=== PATIENT | female | born 1935 | race Caucasian/White ===

== ENCOUNTER 2023-07-01 15:20 | Outpatient (CLI) | payer MEDICARE, SELFPAY ==
--- OUTSIDE RECORDS SUMMARY | 2023-12-22 07:44 | XMS_ITS | Clinical Summary ---
Author Name Unknown Organization [facility] Moos[facility] m Address [address] [place] [address] Care Team Providers Care Chemical Preparer Name Role Phone Tawny Webb MD Primary Care Provider Allergies Active Allergy Reactions Criticality Noted Date Comments Iodine Low 10/13/2022 Medications Medication Sig Dispensed Refills Start Date End Date Status Rexulti 1 mg tabletIndications :Moderate Alzheimer's dementia with mood disturbance, unspecified timing of dementia onset (HCC) Take 0.5 tablets (0.5 mg) by mouth 1 (one) time each day. 0 Active mometasone (Elocon) 0.1 % lotion Apply 1 application topically 1 (one) time each day. 0 01/17/2023 Active memantine (Namenda) 10 mg tabletIndications :Dementia, unspecified dementia severity, unspecified dementia type, unspecified whether behavioral, psychotic, or mood disturbance or anxiety (HCC) Take 1 tablet (10 mg) by mouth in the morning. Dosage increase to 10 mg daily 90 tablet 1 03/23/2023 4 Discontinue d(Therapy completed) OLANZapine (ZyPREXA) 5 mg tablet Take 1 tablet (5 mg) by mouth in the morning and 1 tablet (5 mg) in the evening. 180 tablet 3 04/02/2023 4 Discontinue d(Therapy completed) Active Problems Problem Noted Date Diagnosed Date Advance care planning 12/16/2023 Last Assessment & Plan: Discussed plan with daughter who is also electric operator. Not pursuing aggressive treatments. Patient is DNR/DNI. Advanced directive is not available at this time, however daughter states she will supply these documents. Impulsive 03/23/2023 Moderate Alzheimer's dementia with mood disturba nce 10/13/2022 Last Assessment & Plan: On Rexulti, continue for now. Patient unable to drive. Utilizes walker. Handicap permit form. Ordered referral to psychiatry to establish. Encounters Date Type Department Care Team Description 12/16/2023 10:10 AM EST Office Visit [facility] [id number] [facility], 2nd Floor [place], [place] [id number] Richard Jessica DO Moderate Alzheimer's dementia with mood disturbance, unspecified timing of dementia onset (HCC) (Primary Dx); Advance care planning 12/14/2023 Travel 12/07/2023 Travel 11/07/2023 Travel 11/01/2023 Travel from Last 3 Months Immunizations Name Administration Dates Next Due Influenza (Fluzone), High-do se Seasonal, Quadrivalent, Preservative Free 08/22/2021 Influenza, High Dose Seasona l, Preservative Free 09/01/2022 Moderna SARS-CoV-2 Vaccination 09/19/2021,2020,01/03/2021 Pneumococcal Polysaccharide PPSV23 08/31/2011, Zoster, live 05/13/2014 Family History Medical History Relation Name Comments Heart failure Father Pancreatic cancer Mother Relation Name Status Comments Father (Age 72) COD: Heart Issues Mother (Age 80) COD: Pancr eatic cancer Social History Tobacco Use Types Packs/Day Years Used Date Smoking Tobacco: Former Cigarettes 1 10 Q uit: 1980 Smokeless Tobacco: Never Tobacco Cessation:Counseling Given: Not Answered Alcohol Use Standard Drinks/Week Comments Not Currently 0 (1 standard drink = 0.6 oz pur e alcohol) AUDIT-C Answer Date Recorded Q1: How often do you have a drink containing alcohol? Never 10/14/2022 Q2: How many drinks containi ng alcohol do you have on a typical day when you are drinking? Patient does not drink Q3: How often do you have si x or more drinks on one occasion? Never 10/14/2022 PHQ-2 Answer Date Recorded Patient Health Questionnaire-2 Score 0 12/16/2023 Exercise Vital Sign Answer Date Recorde d On average, how many days pe r week do you engage in moderate to strenuous exercise (like a brisk walk)? 7 days 02/03/2023 On average, how many minutes do you engage in exercise at this level? 20 min 02/03/2023 Sex and Gender Information Value Date Recorded Sex Assigned at Not on file Gender Identity Not on file Sexual Orientation Not on file Job Start Date Occupation Industry Not on file Not on file Not on file Last Filed Vital Signs Vital Sign Reading Time Taken Comments Blood Pressure 122/78 12/16/2023 10:18 AM EST Pulse 74 12/16/2023 10:18 AM EST Temperature 36.3 ??C (97.3 ??F) 03/23/2023 1:51 PM ED T Respiratory Rate 18 02/03/2023 12:24 PM EDT Oxygen Saturation 99% 12/16/2023 10:18 AM EST Inhaled Oxygen Concentration - - Weight 59 kg (130 lb) 03/23/2023 1:51 PM EDT Height 165.1 cm (5' 5) 02/03/2023 12:24 PM EDT Body Mass Index 21.63 02/03/2023 12:24 PM EDT Plan of Treatment Upcoming Encounters Date Type Department Care Team (Late st Contact Info) Description 01/13/2024 4:00 PM EST Office Visit [facility] [address], [address] [place] [address] Tawny Webb MD [address] [place] [address] [address] [place] [address] Health Maintenance Due Date Last Done Comments Medicare Annual Wellness (AWV) 1935 DTaP/Tdap/Td Vaccines (1 - Tdap) 1955 Zoster Vaccines (2 of 3) 07/08/2014 05/13/2014 COVID-19 Vaccine (6 - season) 2023 08/31/2022, 04/07/2022, 09/19/2021, Additional history exists Pneumococcal Vaccine: 65+ Years Completed 11/01/2017, 08/31/2011, 05/13/2010 Influenza Vaccine Completed 08/18/2023, , 08/31/2022, Additional history exists Bone Density Scan Discontinued HIB Vaccines Aged Out No longer eligi ble based on patient's age to complete this topic HPV Vaccines Aged Out No longer eligi ble based on patient's age to complete this topic Hepatitis A Vaccines Aged Out No long er eligible based on patient's age to complete this topic Hepatitis B Vaccines Aged Out No long er eligible based on patient's age to complete this topic IPV Vaccines Aged Out No longer eligi ble based on patient's age to complete this topic Meningococcal Vaccine Aged Out No lisette omer eligible based on patient's age to complete this topic Rotavirus Vaccines Aged Out No longer eligible based on patient's age to complete this topic Advance Directives Latest Code Status on File Code Status Date Activated Date Inactivated Comments DNR 12/16/2023 10:35 AM Code Status History Code Status Date Activated Date Inactivated Comments Full Code 10/13/2022 4:43 PM 12/16/2023 10:35 AM Care Teams Chemical Preparer Relationship Specialty Start Date End Date Tawny Webb MD [address] [place], [place] [id number] PCP - General Family Medicine 10/20/23
--- OUTSIDE RECORDS SUMMARY | 2023-12-22 07:45 | XMS_ITS | Encounter Summary ---
Author Name Unknown Organization [facility] Address [address] [place] [address] Care Team Providers Care Implementation Specialist Name Role Phone Pcp, None Primary Care Provider Unavailabl e Encounter Details Date Type Department Care Team (Latest Contact Info) Description 01/19/2023 Travel Social History Tobacco Use Types Packs/Day Years Used Date Smoking Tobacco: Former Cigarettes Smokeless Tobacco: Never Alcohol Use Standard Drinks/Week Comments Not Currently [...] Answer Date Recorded Patient Health Questionnaire-2 Score 2 01/19/2023 Sex and Gender Information Value Date Recorded Sex Assigned at Not on file Gender Identity Not on file Sexual Orientation Not on file Job Start Date Occupation Industry Not on file Not on file Not on file COVID-19 Exposure Response Date Recorded In the last 10 days, have lucas u been in contact with someone who was confirmed or suspected to have Coronavirus/COVID-19? No / Unsure 01/19/2023 3:39 PM EST documented as of this encounter Functional Status Functional Status Response Date of Assess ment Are you deaf or do you have serious difficulty h earing? No 10/19/2022 Are you blind or do you have serious difficulty seeing, even when wearing glasses? No 10/19/2022 Do you have serious difficul ty walking or climbing stairs? No 10/19/2022 Do you have serious difficulty dressing or bathi ng? No 10/19/2022 Because of a physical, menta l, or emotional condition, do you have serious difficulty doing errands alone such as visiting the doctor? Yes 10/19/2022 Cognitive Status Response Date of Assessm ent Because of a physical, menta l, or emotional condition, do you have serious difficulty concentrating, remembering, or making decisions? (5 years old or older) Yes 10/19/2022 documented as of this encounter Plan of Treatment Upcoming Encounters Date Type Department Care Team (Late st Contact Info) Description 01/13/2024 4:00 PM EST Office Visit [facility] [address], [address] [place] [id number] Tawny Webb MD [address] [place] [address] [address] [place], [place] [id number] documented as of this encounter Visit Diagnoses Not on filedocumented in this encounter Additional Health Concerns Assessment Noted Time PHQ-9 Depression Total Score: 2 01/19/20 23 3:50 PM EST documented as of this encounter Care Teams Implementation Specialist Relationship Specialty Start Date End Date Pcp, Carmelina [address] [place] [address] PCP - General Family Medicine 10/20/22 02/02/23 documented as of this encounter
--- OUTSIDE RECORDS SUMMARY | 2023-12-22 07:45 | XMS_ITS | Encounter Summary ---
Author Name Unknown Organization [facility] Address [address] [place] [address] Care Team Providers Care Cartoon Designer Name Role Phone Tawny Webb MD Primary Care Provider [phone]- [phone] Encounter Details Date Type Department Care Team (Latest Contact Info) Description 12/14/2023 Travel Social History Tobacco Use Types Packs/Day Years Used Date Smoking Tobacco: Former Cigarettes 1 10 Q uit: 1979 Smokeless Tobacco: Never Alcohol Use Standard Drinks/Week [...] Answer Date Recorded Patient Health Questionnaire-2 Score 1 03/23/2023 Exercise Vital Sign Answer Date Recorde d [...] file Not on file Not on file documented as of this encounter Functional Status [...] 01/13/2024 4:00 PM EST Office Visit [facility] [address], [address] [place] [address] Tawny Webb MD [facility] [address] [place] [address] documented as of this encounter Visit Diagnoses Not on filedocumented in this encounter Additional Health Concerns Assessment Noted Time PHQ-9 Depression Total Score: 1 03/23/20 23 1:54 PM EDT documented as of this encounter Care Teams Cartoon Designer Relationship Specialty Start Date End Date [facility] [address] [place] [address] PCP - General Family Medicine 10/20/23 documented as of this encounter
--- OUTSIDE RECORDS SUMMARY | 2023-12-22 07:45 | XMS_ITS | Referral Summary ---
Author Name Unknown Organization [facility] Address [address] [place] [address] Care Team Providers Care Assistant Attorney General Name Role Phone Elsewhere, Pcp Primary Care Provider Unavailabl e Source Comments Patient records contain information from all sites at [facility]. For routine questions regarding patient records, call [phone] during business hours, M-F 8:00 AM - 5:00 PM Central Time. Record requests for emergency care only can be directed to [phone] at any time.[facility] Allergies Active Allergy Reactions Criticality Noted Date Comments Donepezil Other (see comments) Medium 07/02/2023 agitation Iodine Hives (Reselect Reaction) High 12/04/2021 Reacted to mercurium as a child, has tolerated iodine Escitalopram Oxalate Other (see comments) 07/07 Unresponsive episodes, stopped eating, weight loss Memantine Other (see comments) Medium 07/02/2023 agitation Medications Medication Sig Dispensed Refills Start Date End Date Status aspirin [address] tablet Take 81 mg by mouth daily. 0 Active multivitamin (MULTIPLE VITAMINS DAILY ORAL) Take 1 tablet by mouth daily as needed (dietary supplement). 0 Active betamethasone dipropionate (DIPROLENE) 0.05 % lotion Apply 1 Application topically daily as needed (apply to left ear). 0 Active calcium citrate-vitamin D3 315 mg-6.25 mcg (250 Unit) per tablet Take 1 tablet by mouth daily as needed (dietary supplement). 0 Active magnesium oxide 500 mg capsule Take 500 mg by mouth at bedtime as needed (supplement/sleep) . 0 Active potassium chloride (KLOR-CON) 20 mEq packetIndications:Hy pokalemia Take 10 mEq by mouth daily with breakfast. 45 packet 3 05/26/2023 Active thiamine (VITAMIN B1) 100 mg tablet Take 1 tablet (100 mg total) by mouth daily. 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 30 tablet 1 07/30/2023 Active Rexulti 0.5 mg tablet TAKE 1 TABLET(0.5 MG) BY MOUTH DAILY 30 tablet 0 09/30/2023 Active Active Problems Patient Care Coordination No te Formatting of this note migh t be different from the original. 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 Hematuria Chronic 05/29/2023 Cyst Renal 05/29/2023 Overview: 10/19/2022 CT stone protocol 3.4 cm Hypokalemia 05/26/2023 Personal History Of Malignant Neoplasm Of Cervix Uteri 05/26/2023 Depression 05/17/2023 Temper Control Difficulty 05/17/2023 Alzheimer's Disease 04/21/2023 Hydrocephalus Normal Pressure 04/21/2023 Transient Ischemic Attack 04/21/2023 Unsteadiness Gait Disorder Non Orthopedic 202204/13/2023 Hyperlipidemia 04/13/2023 04/13/2023 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 04/13/2023 04/13/2023 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 No 04/15/2023 Within the last year, have y ou been humiliated or emotionally abused in other ways by your partner or ex-partner? No Within the last year, have y ou been kicked, hit, slapped, or otherwise physically hurt by your partner or ex-partner? No 04/15/2023 Within the last year, have y ou been raped or forced to have any kind of sexual activity by your partner or ex-partner? No 04/15/2023 Social Connection and Isolat ion Panel [NHANES] Answer Date Recorded In a typical week, how many times do you talk on the phone with family, friends, or neighbors? Twice a week 04/15/2023 How often do you get togethe r with friends or relatives? More than three times a week 04/15/2023 How often do you attend chur or mosque services? Never 04/15/2023 Do you belong to any clubs o r organizations such as pentecostal groups, unions, fraternal or athletic groups, or school groups? No 04/15/2023 How often do you attend meet ings of the clubs or organizations you belong to? Never 04/15/2023 Are you , , di vorced, , never , or living with a partner? 04/15/2023 AUDIT-C Answer Date Recorded Q1: How often do you have a drink containing alc ohol? Never 04/15/2023 Average Number of Drinks Not on file 023 Frequency of Binge Drinking Not on file 03/23 Overall Financial Resource Strain (CARDIA) Answe r Date Recorded How hard is it for you to pa y for the very basics like food, housing, medical care, and heating? Not hard at all 04/15/2023 PHQ-2 Answer Date Recorded PHQ-2 Score 5 08/05/2023 [facility] - Occupational Stress Questionnaire Answer Date Recorded Do you feel stress - tense, restless, nervous, or anxious, or unable to sleep at night because your mind is troubled all the time - these days? To some extent 04/15/2023 Exercise Vital Sign Answer Date Recorde d On average, how many days pe r week do you engage in moderate to strenuous exercise (like a brisk walk)? 0 days 04/15/2023 On average, how many minutes do you engage in exercise at this level? 10 min 04/15/2023 Hunger Vital Sign Answer Date Recorded Within the past 12 months, y ou worried that your food would run out before you got the money to buy more. Never true 04/15/20 Within the past 12 months, t he food you bought just didn't last and you didn't have money to get more. Never true 04/15/2023 PRAPARE - Transportation Answer Date Re corded In the past 12 months, has l ack of transportation kept you from medical appointments or from getting medications? No 03/23 In the past 12 months, has l ack of transportation kept you from meetings, work, or from getting things needed for daily living? No 04/15/2023 Housing Stability Vital Sign Answer Marcin e Recorded In the last 12 months, was t here a time when you were not able to pay the mortgage or rent on time? No 04/15/2023 In the last 12 months, how many places have you lived? 2 04/15/2023 In the last 12 months, was t here a time when you did not have a steady place to sleep or slept in a alf (including now)? No 04/15/2023 Depression Answer Date Recor ded PHQ-9 Total Score (max 27) 18 08/05 Nutrition Answer Date Recorded Nutrition: EVOO Fat Source Yes 04/15 On average, how many serving s of fruits and vegetables do you eat per day (serving size is equal to 1 cup or approximately the size of a tennis ball)? 2-3 04/15/2023 Dental Answer Date Recorded Dental: Regular Dentist Yes 04/15/20 Employment Answer Date Recorded Employment status Retired 04/15/2023 Education Answer Date Recorded What is the highest level of school you have completed or the highest degree you have received? 12th grade 04/15/2023 Sex and Gender Information Value Date Recorded Sex Assigned at Female 04/15/2023 7:57 AM CDT Gender Identity Female 04/15/2023 7:57 AM CDT Sexual Orientation Straight 04/15/2023 7: 57 AM CDT Last Filed Vital Signs Vital Sign Reading Time Taken Comments Blood Pressure 109/66 08/04/2023 12:53 PM CDT Pulse 49 08/04/2023 12:53 PM CDT Temperature 36.7 ??C (98.1 ??F) 07/07/2023 10:09 AM C DT Respiratory Rate 20 07/07/2023 10:09 AM CDT Oxygen Saturation 92% 07/07/2023 10:09 AM CDT Inhaled Oxygen Concentration - - Weight 57 kg (125 lb 10.6 oz) 08/04/2023 12:53 P M CDT Height 165 cm (5' 4.96) 07/02/2023 12:42 PM CDT Body Mass Index 20.94 07/02/2023 12:42 PM CDT Plan of Treatment Not on file Advance Directives For more information, please contact: [phone] Latest Code Status on File Code Status Date Activated Date Inactivated Comments DNR/DNI 07/01/2023 9:35 PM 07/03/2023 6:05 PM Care Teams Assistant Attorney General Relationship Specialty Start Date End Date Elsewhere, Pcp PCP - General Internal Medicine 05/31/23
--- OUTSIDE RECORDS SUMMARY | 2023-12-22 07:45 | XMS_ITS | Encounter Summary ---
Author Name Unknown Organization [facility] Address [address] [place] [address] Care Team Providers Care Private Household Worker Name Role Phone Tawny Webb MD Primary Care Provider [phone]- [phone] Encounter Details Date Type Department Care Team (Latest Contact Info) Description 11/01/2023 Travel Social History Tobacco Use Types Packs/Day [...] 01/13/2024 4:00 PM EST Office Visit [facility] [address], [address] [place] [address] Tawny Webb MD [facility] [address] [place] [address] documented as of this encounter Visit Diagnoses Not on filedocumented in this encounter Additional Health Concerns Assessment Noted Time PHQ-9 Depression Total Score: 1 03/23/20 23 1:54 PM EDT documented as of this encounter Care Teams Private Household Worker Relationship Specialty Start Date End Date Tawny Webb MD [facility] [place] [address] PCP - General Family Medicine 10/20/23 documented as of this encounter
--- OUTSIDE RECORDS SUMMARY | 2023-12-22 07:45 | XMS_ITS | Encounter Summary ---
Author Name Unknown Organization [facility] [employer] Address [address] [place] [address] Care Team Providers Care Closing Agent Name Role Phone Cali Park MD Primary Care Provider Reason for Visit * Reason Comments Establish Care Encounter Details Date Type Department Care Team (Late st Contact Info) Description 02/03/2023 12:30 PM EDT Office Visit [facility] [address] [facility] , [address] [place] [address] Cali Park MD [address] [place] [address] Dementia, unspecified dementia severity, unspecified dementia type, unspecified whether behavioral, psychotic, or mood disturbance or anxiety (HCC) (Primary Dx) Social History Tobacco Use Types Packs/Day Years Used Date Smoking Tobacco: Former Cigarettes 1 10 Q uit: 1980 Smokeless Tobacco: Never Alcohol Use Standard Drinks/Week [...] Date Recorded Patient Health Questionnaire-2 Score 1 02/03/2023 Exercise Vital Sign Answer Date Recorde d [...] Recorded In the last 10 days, have yo u been in contact with someone who was confirmed or suspected to have Coronavirus/COVID-19? No / Unsure 02/03/2023 12:04 PM EDT documented as of this encounter Last Filed Vital Signs Vital Sign Reading Time Taken Comments Blood Pressure 153/90 02/03/2023 12:24 PM EDT Pulse 73 02/03/2023 12:24 PM EDT Temperature 36.6 ??C (97.8 ??F) 02/03/2023 12:24 PM E DT Respiratory Rate 18 02/03/2023 12:24 PM EDT Oxygen Saturation 96% 02/03/2023 12:24 PM EDT Inhaled Oxygen Concentration - - Weight 60.3 kg (133 lb) 02/03/2023 12:24 PM EDT Height 165.1 cm (5' 5) 02/03/2023 12:24 PM EDT Body Mass Index 22.13 02/03/2023 12:24 PM EDT documented in this encounter Functional Status Functional Status Response [...] Yes 10/19/2022 documented as of this encounter Progress Notes * Cali Packer MD - 02/03/2023 12:30 PM EDT Patient Demographics: Sarina Klein :1935 87 y.o. female Chief Complaint: Chief Complaint Patient presents with ??? Establish Care HPI: Sarina is a 87 y.o. female that presents to establish care. Patient has PCP, Neurology in [place]. HPI Patient comes to establish care today and as per daughter patient has history of dementia but denies other chronic medical issues for which patient is currently treated. Dementia Patient is here today with daughter (HCS) which provides most of the history. Patient's daughter reports that she has longstanding history of dementia with episodes of psychosis in the past. Patient follows with Neurology in [place] at least once a year. Patient's family reports she is currently at baseline. Patient had psychotic episodes on September in [place] for which patient was hospitalized. She had medications change to Zyprexa and memantine at the time of hospitalization. Patient was taken off Seroquel and Aricept as psychiatry suspected the medication could have precipitated the psychosis episode. As per daughter patient is able to do ADL without assistance. Patient does need assistance with iADL's. Patient no longer drives. Reviewed note from psychiatry locally in [place] from 01/19/2023 recommended patient to continue onolanzapine on Namenda. Patient has scheduled follow-up prior to departing to [place] in March. Review of Systems Unable to perform ROS: Dementia Histories: Past Medical History: Diagnosis Date ??? Dementia (HCC) ??? Depression ??? Hyperlipidemia ??? Hypothyroidism Past Surgical History: Procedure Laterality Date ??? APPENDECTOMY N/A 1942 ??? CARPAL TUNNEL RELEASE Right 1992 ??? CATARACT EXTRACTION, BILATERAL Bilateral 2014 ??? HYSTERECTOMY N/A 1971 ??? KNEE ARTHROPLASTY 1992 ??? TONSILLECTOMY Bilateral 1939 Social History Tobacco Use ??? Smoking status: Former Packs/day: 1.00 Years: 10.00 Pack years: 10.00 Types: Cigarettes Quit date: 1979 Years since quittin.2 ??? Smokeless tobacco: Never Vaping Use ??? Vaping status: Never Used Substance Use Topics ??? Alcohol use: Not Currently ??? Drug use: Never Family History Problem Relation Name Age of Onset ??? Pancreatic cancer Mother ??? Heart failure Father Medications: Current Outpatient Medications Medication Instructions ??? memantine (NAMENDA) 5 mg, oral, Daily ??? OLANZapine (ZYPREXA) 2.5 mg, oral, 2 times daily Allergies: Iodine Physical Exam: Vitals: 02/03/23 1224 BP: (!) 153/90 BP Location: Left arm Patient Position: Sitting BP Cuff Size: Adult Pulse: 73 Resp: 18 Temp: 36.6 ??C (97.8 ??F) TempSrc: Tympanic SpO2: 96% Weight: 60.3 kg Height: 1.651 m Body mass index is 22.13 kg/m??. Physical Exam Vitals and nursing note reviewed. Constitutional: General: She is not in acute distress. Appearance: Normal appearance. She is well-developed. Eyes: Extraocular Movements: Extraocular movements intact. Conjunctiva/sclera: Conjunctivae normal. Cardiovascular: Rate and Rhythm: Normal rate and regular rhythm. Heart sounds: No murmur heard. Pulmonary: Breath sounds: Normal breath sounds. No wheezing, rhonchi or rales. Musculoskeletal: Right lower leg: No edema. Left lower leg: No edema. Skin: Coloration: Skin is not jaundiced. Findings: No rash. Neurological: Mental Status: She is alert and oriented to person, place, and time. Mental status is at baseline. Gait: Gait normal. Psychiatric: Attention and Perception: Attention normal. Mood and Affect: Mood normal. Affect is flat. Behavior: Behavior normal. Behavior is cooperative. Thought Content: Thought content is not paranoid. Thought content does not include homicidal or suicidal ideation. Cognition and Memory: Cognition is impaired. Memory is impaired. Labs: Lab Results Component Value Date WBC 6.1 10/19/2022 HGB 12.2 10/19/2022 HCT 38.1 10/19/2022 PLT 266 10/19/2022 ALT 46 10/14/2022 AST 109 (H) 10/14/2022 NA 141 10/14/2022 K 3.4 (L) 10/14/2022 CL 108 (H) 10/14/2022 CREATININE 1.0 10/14/2022 BUN 19 (H) 10/14/2022 CO2 24 10/14/2022 TSH 3.70 10/13/2022 INR 1.0 10/13/2022 Personally reviewed by me Imaging: CT stone protocol HISTORY: F, 87 y/o . hematuria and pain RADIATION DOSAGE (If Supplied By Facility):DLP = ( Radiation Dosage: 213 ) mGycm TECHNICAL FACTORS: Standard CT technique was utilized. COMPARISON: None FINDINGS: LIVER: Normal in size, contour, and attenuation without focal hepatic mass. Limited evaluation without contrast. No free fluid. No intrahepatic biliary ductal dilatation. GALLBLADDER/BILIARY: Gallbladder normal without gallbladder wall thickening or pericholecystic fluid. No calcified stones within the gallbladder. No evidence of intra/extrahepatic biliary ductal dilatation. SPLEEN: Spleen is normal in size, contour, and attenuation. PANCREAS: Pancreas is normal in size, attenuation, and contour without pancreatic ductal dilatation. No evidence of acute/chronic pancreatitis. ADRENAL: No adrenal masses. RENAL: 3.4 cm right renal cyst. No evidence of hydronephrosis. Perinephric space is normal. GASTROINTESTINAL: No bowel obstruction, pneumoperitoneum, pneumatosis, or ascites. No free or loculated fluid collections within the abdomen or pelvis. RETROPERITONEUM: Abdominal aorta and arborizing branches are normal in course and caliber. No aneurysm. IVC is normal. PELVIS: No inguinal, pelvic sidewall, mesenteric, retroperitoneal lymphadenopathy. Calcified pelvicphleboliths. URINARY BLADDER: No wall thickening. No stones. 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 No focal lytic or blastic lesion. No acute fracture. PULMONARY: Limited evaluation of the lung bases. Mild cardiac enlargement. Moderate pericardial effusion. CONCLUSION: 1. No acute intra-abdominal findings 2. No evidence of nephrolithiasis/hydronephrosis 3. Moderate pericardial effusion without cardiogenic failure Thank you for the opportunity to provide your interpretation. Nico Randolph MD A: ZENA 10/19/2022 6:12 AM Encounter Date: 10/13/22 ECG 12 lead Result Value Arrythymia P [place] 23 QRS [place] 71 T Wave [place] [address] Interval 148 QRSD Interval 70 QT Interval 358 QTC Interval 447 Severity 4 Narrative Poor data quality, interpretation may be adversely affected Sinus rhythm with sinus arrhythmia with fusion complexes Anteroseptal infarct , age undetermined No previous ECG available for comparison Report personally reviewed by me Assessment and Plan 1. Dementia, unspecified dementia severity, unspecified dementia type, unspecified whether behavioral, psychotic, or mood disturbance or anxiety (HCC) 1. Dementia, unspecified dementia severity, unspecified dementia type, unspecified whether behavioral, psychotic, or mood disturbance or anxiety (HCC) (Primary) Assessment & Plan: Chronic. Currently at baseline Treated with Zyprexa and Namenda which were started by psychiatry Patient continues close follow-up with psychiatry and sees neurology occasionally while in [place] Continue care as per both specialist Provided extensive support and discussed with daughter to come see us with any concerns Any changes to patient's baseline to be taking into consideration and she should seek medical attention immediately Orders: - Basic metabolic panel Labs, imaging, diagnostics/procedures/pathology, ER visits, and consultations reviewed as available. Disclaimer: Note was dictated utilizing [employer] Naturally speaking voice recognition software. Unfortunately, this can lead to occasional typographical errors. I apologize in advanceif the situation occurs. If you have any questions, please do not hesitate to call our office for clarification. 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 Currently at baseline Treated with Zyprexa and Namenda which were started by psychiatry Patient continues close follow-up with psychiatry and sees neurology occasionally while in [place] Continue care as per both specialist Provided extensive support and discussed with daughter to come see us with any concerns Any changes to patient's baseline to be taking into consideration and she should seek medical attention immediately documented in this encounter Plan of Treatment Upcoming Encounters Date Type Department Care Team (Late st Contact Info) Description 01/13/2024 4:00 PM EST Office Visit [facility] [address] [facility], [address] [place] [address] Tawny Webb MD [address] [place] [address] [address] [place] [address] Scheduled Orders Name Type Priority Associated Diagnoses Orde r Schedule Basic metabolic panel Lab Routine Dementia, unspecified dementia severity, unspecified dementia type, unspecified whether behavioral, psychotic, or mood disturbance or anxiety (HCC) Expected: 02/03/2023 (Approximate), Expires: 09/25/2024 documented as of this encounter Visit Diagnoses Diagnosis Dementia, unspecified dementia severity, unspecified dementia type, unspecified whether behavioral, psychotic, or mood disturbance or anxiety (HCC)- Primary documented in this encounter Additional Health Concerns Assessment Noted Time PHQ-9 Depression Total Score: 2 01/19/20 3:50 PM EST documented as of this encounter Care Teams Closing Agent Relationship Specialty Start Date End Date Cali Park MD [address] [facility] [address] [place] [address] PCP - General Internal Medicine 02/03/23 10/19/23 documented as of this encounter
--- OUTSIDE RECORDS SUMMARY | 2023-12-22 07:45 | XMS_ITS | Encounter Summary ---
Author Name Unknown Organization [facility] [employer] Address [address] [place] [address] Care Team Providers Care Sales Promotion Representative Name Role Phone Tawny Webb MD Primary Care Provider Reason for Referral * Consultation (Routine) - Authorized Specialty Diagnoses / Procedures Referred By Getachew dubon Referred To Contact Behavioral Health / Psychiatry Diagnoses Moderate Alzheimer's dementia with mood disturbance, unspecified timing of dementia onset (HCC) Procedures ME OFFICE/OUTPATIENT [facility] [address] [place] [address] [place] [address] Referral ID Status Reason Start Date Expiration Date Visits Requested Visits Authorized [id number] Authorized Specialty Services Required 12/16/2023 12/15/2025 1 1 Reason for Visit * Reason Comments Establish Care Encounter Details Date Type Department Care Team (Late st Contact Info) Description 12/16/2023 10:10 AM EST Office Visit [facility] [address] [facility] [place] [address] [place] [address] [place] [address] Moderate Alzheimer's dementia with mood disturbance, unspecified timing of dementia onset (HCC) (Primary Dx); Advance care planning Social History Tobacco Use Types Packs/Day Years [...] on file documented as of this encounter Last Filed Vital Signs Vital Sign Reading Time Taken Comments Blood Pressure 122/78 12/16/2023 10:18 AM EST Pulse 74 12/16/2023 10:18 AM EST Temperature - - Respiratory Rate - - Oxygen Saturation 99% 12/16/2023 10:18 AM EST Inhaled Oxygen Concentration - - Weight - - Height - - Body Mass Index - - documented in this encounter Functional Status Functional [...] as of this encounter Progress Notes * Richard Jessica, DO - 12/16/2023 10:10 AM EST Patient Demographics: Sarina Klein :1935 88 y.o. female Chief Complaint: Chief Complaint Patient presents with Establish Care HPI: Sarina presents today for establishing care. Subjective is limited from the patient due to advanced dementia. She is accompanied by her daughter. Her daughter is her sole caregiver. She takes care of her at home. Patient and daughter travel to [place] and follow with behavioral health and neurology there. Providers in [place] have requested that the patient establish care in [place]. She was following with psychiatry locally but her psychiatrists have retired. Daughter is requesting Rexulti refills when needed. Daughter states that care at this point for Sarina is mostly palliative. They are in the process of getting her up to date on vaccinations but do not want to start any newmedications or obtain routine labs. Review of Systems ROS is limited due to the patient's clinical condition. Physical Exam Vitals and nursing note reviewed. Constitutional: General: She is not in acute distress. Appearance: Normal appearance. She is well-developed. HENT: Head: Normocephalic and atraumatic. Right Ear: External ear normal. Left Ear: External ear normal. Nose: Nose normal. Eyes: Extraocular Movements: Extraocular movements intact. Pupils: Pupils are equal, round, and reactive to light. Cardiovascular: Rate and Rhythm: Normal rate and regular rhythm. Heart sounds: Normal heart sounds. Pulmonary: Effort: Pulmonary effort is normal. No respiratory distress. Breath sounds: Normal breath sounds. Musculoskeletal: Cervical back: Normal range of motion. Right lower leg: No edema. Left lower leg: No edema. Skin: General: Skin is warm and dry. Neurological: Mental Status: She is alert. Mental status is at baseline. Psychiatric: Cognition and Memory: Cognition is impaired. Memory is impaired. Vitals: 12/16/23 1018 BP: 122/78 BP Location: Left arm Patient Position: Sitting BP Cuff Size: Adult Pulse: 74 SpO2: 99% There is no height or weight on file to calculate BMI. Current Outpatient Medications: mometasone (Elocon) 0.1 % lotion, Apply 1 application topically 1 (one) time each day., Disp: , Rfl: Rexulti 1 mg tablet, Take 0.5 tablets (0.5 mg) by mouth 1 (one) time each day., Disp: , Rfl: Allergies: She is allergic to iodine. 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 She has a past surgical history that includes Appendectomy (N/A, 1943); Tonsillectomy (Bilateral, 1939); Cataract extraction, bilateral (Bilateral, 2014); Hysterectomy (N/A, 1971); Knee Arthroplasty (1992); and Carpal tunnel release (Right, 1992). She reports that she quit smoking about 44 years ago. Her smoking use included cigarettes. She has a 10 pack-year smoking history. She has never used smokeless tobacco. She reports that she does not currently use alcohol. She reports that she does not use drugs. Her family history includes Heart failure in her father; Pancreatic cancer in her mother. Assessment and Plan 1. Moderate Alzheimer's dementia with mood disturbance, unspecified timing of dementia onset (HCC) (Primary) Assessment & Plan: On Rexulti, continue for now. Patient unable to drive. Utilizes walker. Handicap permit form. Ordered referral to psychiatry to establish. 2. Advance care planning Assessment & Plan: Discussed plan with daughter who is also sorter pricer. Not pursuing aggressive treatments. Patient is DNR/DNI. Advanced directive is not available at this time, however daughter states she will supply these documents. Orders: - DNR (Do Not Resuscitate) documented in this encounter Miscellaneous Notes * Assessment & Plan Note - Richard Jessica DO - 12/16/2023 11:06 AM EST Associated Problem(s): Advance care planning Discussed plan with daughter who is also sorter pricer. Not pursuing aggressive treatments. Patient is DNR/DNI. Advanced directive is not available at this time, however daughter states she will supply these documents. 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 Patient unable to drive. Utilizes walker. Handicap permit form. Ordered referral to psychiatry to establish. documented in this encounter Plan of Treatment Upcoming Encounters Date Type Department Care Team (Late st Contact Info) Description 01/13/2024 4:00 PM EST Office Visit [facility] [address], [address] [place] [address] [facility] [place] [address] Scheduled Referrals Name Type Priority Associated Diagnoses Orde r Schedule Ambulatory referral to Behavioral Health Outpatient Referral Routine Moderate Alzheimer's dementia with mood disturbance, unspecified timing of dementia onset (HCC) Expected: 12/16/2023 (Approximate), Expires: 06/15/2024 documented as of this encounter Visit Diagnoses Diagnosis Moderate Alzheimer's dementia with mood disturbance, unspecified timing of dementia onset (HCC)- Primary Advance care planning Other specified counseling documented in this encounter Additional Health Concerns Assessment Noted Time PHQ-9 Depression Total Score: 1 03/23/20 1:54 PM EDT documented as of this encounter Care Teams Sales Promotion Representative Relationship Specialty Start Date End Date [facility] Webb [facility] [address] [place] [address] PCP - General Family Medicine 10/20/23 documented as of this encounter
--- OUTSIDE RECORDS SUMMARY | 2023-12-22 07:45 | XMS_ITS | Encounter Summary ---
Author Name Unknown Organization [facility] [employer] Address [address] [place] [address] Care Team Providers Care Counseling Psychologist Name Role Phone Cali Park MD Primary Care Provider Encounter Details Date Type Department Care Team (Latest Contact Info) Description 02/10/2023 Travel Social History Tobacco Use Types Packs/Day [...] suspected to have Coronavirus/COVID-19? No / Unsure 02/10/2023 12:47 PM EDT documented as of this encounter Functional Status [...] 01/13/2024 4:00 PM EST Office Visit [facility] [address], [address] [place] [id number] Tawny Webb MD [address] [place] [address] [address] [place] [address] documented as of this encounter Visit Diagnoses Not on filedocumented in this encounter Additional Health Concerns Assessment Noted Time PHQ-9 Depression Total Score: 2 01/19/20 23 3:50 PM EST documented as of this encounter Care Teams Counseling Psychologist Relationship Specialty Start Date End Date Cali Park MD [facility] [address] [facility] [address] [place], [place] [id number] PCP - General Internal Medicine 02/03/23 10/19/23 documented as of this encounter
--- OUTSIDE RECORDS SUMMARY | 2023-12-22 07:45 | XMS_ITS | Encounter Summary ---
Author Name Unknown Organization [facility] Address [address] [place] [address] Care Team Providers Care Manager Cost Name Role Phone Cali Park MD Primary Care Provider Encounter Details Date Type Department Care Team (Latest Contact Info) Description 03/23/2023 Travel Social History Tobacco Use Types Packs/Day [...] suspected to have Coronavirus/COVID-19? No / Unsure 03/23/2023 1:41 PM EDT documented as of this encounter [...] 01/13/2024 4:00 PM EST Office Visit [facility] [address], [address] [place] [address] Tawny Webb MD [address] [place] [address] [address] [place] [address] documented as of this encounter Visit Diagnoses Not on filedocumented in this encounter Additional Health Concerns Assessment Noted Time PHQ-9 Depression Total Score: 1 03/23/20 23 1:54 PM EDT documented as of this encounter Care Teams Manager Cost Relationship Specialty Start Date End Date Cali Park MD [facility] [address] [facility] [address] [place] [address] PCP - General Internal Medicine 02/03/23 10/19/23 documented as of this encounter
--- OUTSIDE RECORDS SUMMARY | 2023-12-22 07:45 | XMS_ITS | Encounter Summary ---
Author Name Unknown Organization [facility] Address [address] [place] [address] Care Team Providers Care Photocomposition Keyboard Operator Name Role Phone Elsewhere, Pcp Primary Care Provider Unavailabl e Reason for Visit * Reason Comments Alzheimer's Disease * Outpatient (Routine) - Closed Specialty Diagnoses / Procedures Referred By Getachew dubon Referred To Contact Neurology Diagnoses Alzheimer's Disease (HCC) Anila Clark M.D. [address] [place] [phone] Tee Upton M.D. [address] [place] [phone] Referral ID Status Reason Start Date Expiration Date Visits Re quested Visits Authorized [id number] Closed 05/26/2023 05/25/2026 1 1 Encounter Details Date Type Department Care Team (Late st Contact Info) Description 08/04/2023 1:00 PM CDT Office Visit Department of Neurology in [place], [place] [address], [place] [address] Tee Upton M.D. [address] [phone] Alzheimer's Disease (HCC) Social History Tobacco Use Types Packs/Day Years [...] 04/15/2023 How often do you attend chur ch or taoism services? Never 04/15/2023 Do you belong to any clubs o r organizations such as religious groups, unions, fraternal or athletic groups, or [...] Answer Date Recorded PHQ-2 Score 5 08/05/2023 [facility]at ional [facility] - Occupational Stress Questionnaire Answer Date Recorded [...] Orientation Straight 04/15/2023 7: 57 AM CDT documented as of this encounter Last Filed Vital Signs Vital Sign Reading Time Taken Comments Blood Pressure 109/66 08/04/2023 12:53 PM CDT Pulse 49 08/04/2023 12:53 PM CDT Temperature - - Respiratory Rate - - Oxygen Saturation - - Inhaled Oxygen Concentration - - Weight 57 kg (125 lb 10.6 oz) 08/04/2023 12:53 P M CDT Height - - Body Mass Index 20.94 07/02/2023 12:42 PM CDT documented in this encounter Progress Notes * Tee Upton M.D. - 08/04/2023 1:00 PM CDT SUBJECTIVE CHIEF COMPLAINT / REASON FOR VISIT Sarina Klein is a 88 y.o. female who presents for evaluation of Alzheimer's Disease. HISTORY OF PRESENT ILLNESS Mrs. Klein is an 88-year-old female with a history of Alzheimer's phenotype dementia with behavioral dyscontrol, who returns in followup. Since last being seen, she did meet with the geriatric psychiatrist, who gradually reduced her doseof olanzapine and has now been using Rexulti over the last several weeks. The Rexulti was began at 0.5 mg daily, but unfortunately with this there were still some outbursts, and so over the last several days the dose has been increased to 1 mg daily, but over the last several days Mrs. Klein has also had some difficulties with sedation per her daughter. They are wondering about additional doses of Rexulti versus returning to her lower dose. Please recall, she previously tried a number of other medications, including donepezil, Lexapro, Depakote, olanzapine. 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 Thus, she has now been trialed on Rexulti. REVIEW OF SYSTEMS REVIEW OF SYSTEMS OBJECTIVE PHYSICAL EXAM General: Female in her 80s, drowsy/sedated Vitals: BP 109/66, HR 49 Neuro: She is quite drowsy and sedated today. She has intermittent semi purposeful movements including crossed your hands and moving her feet off of her foot rests on her wheelchair but does not openher eyes to speech a mildly painful stimuli. She briefly clenches fingers however this may be more of a reflex then truly following commands. For details of the neurologic examination, please see the neurologic examination form. ASSESSMENT / PLAN #1 Alzheimer's Disease (HCC) #2 Query over sedation related to Rexulti dose increase Unfortunately, it sounds as though Mrs. Klein is fairly significantly sedated with a full 1-mg doseof Rexulti. I sent a message to her geriatric psychiatrist regarding advisement on future doses (itis dosed in the evening), specifically in regard to either holding a dose tonight or the next several days or just returning to the 0.5 mg on a nightly basis. I would suspect that we cannot have thisdegree of sedation over a prolonged period of time as dehydration or malnutrition would certainly set in fairly quickly at her age. We will await guidance from our geriatric psychiatrist. We did discuss that over time in addition to the behavioral dyscontrol, Mrs. Klines overall decision-making capacity is likely to worsen. They had mentioned that they had some degree of power of assistant city attorney signed previously. However, it sounds as though Mrs. Klein and Mr. Klein actually signed the incorrect documents which is now leading to some difficulties from that standpoint. I did provide a letter to Mrs. Klein's daughter regarding the fact that Mrs. Klein given her diagnosis of Alzheimer disease and its progression certainly does not really have capacity to make sound medical or other decisions on her own behalf or on the behalf of others at this point. Given that, I would encourage her daughter to pursue legal avenues regarding power of assistant city attorney or other decision- making capacity through either her or another child if Mr. Klein is not able to do so. They are in agreement with that. Questions answered to the best of my ability. We will plan to reach out to them in the future if wehear back from our geriatric psychiatry colleagues. Advance Care Planning Provided a letter with documentation of Ms. Klein's Alzheimer's diagnosis and that this impacts herability to make sound decisions both medically as well as in other context. Her daughter is actively working through a POA situation with receptionist telephone operator. Total time 50 minutes documented in this encounter Plan of Treatment Not on file documented as of this encounter Visit Diagnoses Diagnosis Alzheimer's Disease (HCC) documented in this encounter Additional Health Concerns Assessment Noted Time PHQ-9 Depression Total Score: 17 023 12:50 PM CDT documented as of this encounter Care Teams Photocomposition Keyboard Operator Relationship Specialty Start Date End Date Elsewhere, Pcp PCP - General Internal Medicine 05/31/23 documented as of this encounter
--- OUTSIDE RECORDS SUMMARY | 2023-12-22 07:45 | XMS_ITS | Encounter Summary ---
Author Name Unknown Organization [facility] Address [address] [place] [address] Care Team Providers Care Patrol Mother Name Role Phone Elsewhere, Pcp Primary Care Provider Unavailabl e Reason for Referral * Outpatient (Routine) - Closed Specialty Diagnoses / Procedures Referred By Getachew dubon Referred To Contact Diagnoses Abnormal Lung Chest Xray Procedures DX Chest AP or PA and Lateral 2 Views Anila Clark M.D. [address] [place] [phone] [facility] Referral ID Status Reason Start Date Expiration Date Visits Re quested Visits Authorized [id number] Closed 07/07/2023 07/06/2024 1 1 Reason for Visit * Outpatient (Routine) - Closed Specialty Diagnoses / Procedures Referred By Getachew dubon Referred To Contact Diagnoses Abnormal Lung Chest Xray Procedures DX Chest AP or PA and Lateral 2 Views Anila Clark M.D. [address] [place] [phone] [facility] Referral ID Status Reason Start Date Expiration Date Visits Re quested Visits Authorized [id number] Closed 07/07/2023 07/06/2024 1 1 Encounter Details Date Type Department Care Team (Latest Contact Info) Description 08/11/2023 12:49 PM CDT - 08/11/2023 11:59 PM CDT Hospital Encounter Department of Radiology in [address] [phone] Anila Clark M.D. [address] [place] [phone] Abnormal Lung Chest Xray Discharge Disposition: Home or Self Care Social History Tobacco Use Types Packs/Day Years Used Date Smoking Tobacco: Former Cigarettes Q uit: 11/22/1979 Smokeless Tobacco: Never Alcohol Use Standard Drinks/Week [...] often do you attend chur ch or judaism services? Never 04/15/2023 Do you belong to any clubs o r organizations such as cheondoism groups, unions, fraternal or athletic groups, or [...] Answer Date Recorded PHQ-2 Score 5 08/05/2023 [facility] Occupat ional Health - Occupational Stress [...] money to buy more. Never true 04/15/20 23 Within the past 12 months, t he [...] place to sleep or slept in a care home (including now)? No 04/15/2023 Depression Answer Date [...] AM CDT documented as of this encounter Medications at Time of Discharge Medication Sig Dispensed Refills Start Date End Date aspirin [address] tablet Take 81 mg by mouth daily. 0 betamethasone dipropionate (DIPROLENE) 0.05 % lotion Apply 1 Application topically daily as needed (apply to left ear). 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 30 tablet 1 07/30/2023 calcium citrate-vitamin D3 315 mg-6.25 mcg (250 Unit) per tablet Take 1 tablet by mouth daily as needed (dietary supplement). 0 magnesium oxide 500 mg capsule Take 500 mg by mouth at bedtime as needed (supplement/sleep). 0 multivitamin (MULTIPLE VITAMINS DAILY ORAL) Take 1 tablet by mouth daily as needed (dietary supplement). 0 potassium chloride (KLOR-CON) 20 mEq packetIndications:Hypo kalemia Take 10 mEq by mouth daily with breakfast. 45 packet 3 05/26/2023 thiamine (VITAMIN B1) 100 mg tablet Take 1 tablet (100 mg total) by mouth daily. 30 tablet 0 07/03/2023 brexpiprazole (REXULTI) 0.5 mg tablet Take 1 tablet (0.5 mg total) by mouth daily. 14 tablet 0 08/06/2023 08/17/2023 OLANZapine (ZyPREXA) 5 mg tablet Take 2.5 mg by mouth 2 (two) times a day. 0 08/17/2023 documented as of this encounter Plan of Treatment Not on file documented as of this encounter Procedures Procedure Name Priority Date/Time Associated Diagnosis Comments DX CHEST AP OR PA AND LATERAL 2 VIEWS RAD - Routine (most inpatients and all outpatients) 08/11/2023 1:14 PM CDT Abnormal Lung Chest Xray documented in this encounter Results * DX Chest AP or PA and Lateral 2 Views (08/11/2023 1:14 PM CDT) Anatomical Region Laterality Modality Chest, Thoracic RST LOS, Tho racic ARZ LOS, Thoracic FLA LOS N/A Digital Radiography 08/11/2023 1:36 PM CDT Impressions 08/11/2023 1:37 PM CDT Comparison 07/01/2023. Cardiac size and mediastinal contours are stable. Previously noted peripheral nodular opacity within the left lower lobe is resolved. No pneumothorax or pleural effusion. No alveolar consolidation. Multilevel spondylosis throughout the imaged spine. Atherosclerotic vascular calcifications abdominal aorta. Narrative 08/11/2023 1:37 PM CDT EXAM: DX CHEST AP OR PA AND LATERAL 2 VIEWS Procedure Note Nomi Driscoll M.D. - 08/11/2023 EXAM: DX CHEST AP OR PA AND LATERAL 2 VIEWS IMPRESSION: Comparison 07/01/2023. Cardiac size and mediastinal contours are stable.Previously noted peripheral nodular opacity within the left lower lobe is resolved. Nopneumothorax or pleural effusion. No alveolar consolidation. Multilevel spondylosis throughout theimaged spine. Atherosclerotic vascular calcifications abdominal aorta. Anila Clark M.D. [facility] documented in this encounter Visit Diagnoses Diagnosis Abnormal Lung Chest Xray documented in this encounter Additional Health Concerns Assessment Noted Time PHQ-9 Depression Total Score: 18 023 1:59 PM CDT documented as of this encounter Care Teams Patrol Mother Relationship Specialty Start Date End Date Elsewhere, Pcp PCP - General Internal Medicine 05/31/23 documented as of this encounter
--- OUTSIDE RECORDS SUMMARY | 2023-12-22 07:45 | XMS_ITS | Encounter Summary ---
Author Name Unknown Organization [facility] Address [address] [place] [address] Care Team Providers Care Rug Inspector Name Role Phone Cali Park MD Primary Care Provider Encounter Details Date Type Department Care Team (Late st Contact Info) Description 02/04/2023 Orders Only [facility] Internal Medicine [address] [facility] [address] , [address] [place] [address] Cali Park MD [address] [place] [address] Impacted cerumen of left ear (Primary Dx) Social History Tobacco Use Types [...] 01/13/2024 4:00 PM EST Office Visit [facility] [address], [address] [place] [address] Tawny Webb MD [address] [place] [address] [address] [place] [address] documented as of this encounter Visit Diagnoses Diagnosis Impacted cerumen of left ear- Primary Impacted cerumen documented in this encounter Additional Health Concerns Assessment Noted Time PHQ-9 Depression Total Score: 2 01/19/20 23 3:50 PM EST documented as of this encounter Care Teams Rug Inspector Relationship Specialty Start Date End Date Cali Park MD [facility] [facility] [address] [place] [address] PCP - General Internal Medicine 02/03/23 10/19/23 documented as of this encounter
--- OUTSIDE RECORDS SUMMARY | 2023-12-22 07:45 | XMS_ITS ---
Author Name Unknown Organization [facility] Address [address] [place] [address] Care Team Providers Care Deputy Coroner Name Role Phone Unavailable Unavailable Unavailable Surgery Details Not on file Complications Check Surgery Details section. Procedure Estimated Blood Loss Check Surgery Details section. Procedure Findings Check Surgery Details section. Procedure Specimens Taken Check Surgery Details section.
--- OUTSIDE RECORDS SUMMARY | 2023-12-22 07:45 | XMS_ITS | Clinical Summary ---
Author Name Unknown Organization [facility] Address [address] [place] [address] Care Team Providers Care Blueprint Tracer Name Role Phone Elsewhere, Pcp Primary Care Provider Unavailabl e Source Comments Patient records contain information from all sites at [facility]. For routine questions regarding patient records, call [phone] during business hours, M-F 8:00 AM - 5:00 PM Central Time. Record requests for emergency care only can be directed to [phone] at any time.[facility] Allergies Active Allergy Reactions Criticality Noted [...] Resolved Date Chronic Kidney Disease 04/13/2023 04/13/202305/29 Family History Medical History Relation Name Comments Breast cancer Father's Sister Tsering Bolanos Pancreatic cancer Mother Nelsy Read Relation Name Status Comments Father's Sister Tsering Bolanos Mother Nelsy Read Social History Tobacco Use Types Packs/Day Years [...] often do you attend chur ch or tenriism services? Never 04/15/2023 Do you belong to any clubs o r organizations such as gnosticism groups, unions, fraternal or athletic groups, or [...] Answer Date Recorded PHQ-2 Score 5 08/05/2023 [facility] Questionnaire Answer Date Recorded [...] place to sleep or slept in a detention (including now)? No 04/15/2023 Depression Answer Date [...] 07/02/2023 12:42 PM CDT Plan of Treatment Health Maintenance Due Date Last Done Comments DTaP,Tdap,and Td Vaccines (1 - Tdap) 1954 Zoster Vaccines (2 of 3) 07/08/2014 05/13/2014 COVID-19 Vaccine (6 - 2022-2 4 season) 2023 08/31/2022, 04/07/2022, 09/19/2021, Additional history exists Influenza Vaccine (#1) 2023 , 08/31/2022, 09/05/2021, Additional history exists Fall Risk Screen (Annual) 11/22/2023 Glucose Test for Med Monitoring 07/03/2024 07/03/2023, 07/02/2023, 07/01/2023, Additional history exists Pneumococcal vaccine (65+ years) Completed 11/01/2017, 08/31/2011, 05/13/2010 Advance Directives For more information, please contact: [phone] Latest Code Status on File Code Status Date Activated Date Inactivated Comments DNR/DNI 07/01/2023 9:35 PM 07/03/2023 6:05 PM Care Teams Blueprint Tracer Relationship Specialty Start Date End Date Elsewhere, Pcp PCP - General Internal Medicine 05/31/23
--- OUTSIDE RECORDS SUMMARY | 2023-12-22 07:45 | XMS_ITS | Encounter Summary ---
Author Name Unknown Organization [facility] Address [address] [place] [address] Care Team Providers Care Mailroom Associate Name Role Phone Tawny Webb MD Primary Care Provider [phone] Encounter Details Date Type Department Care Team (Latest Contact Info) Description 12/07/2023 Travel Social History Tobacco Use Types Packs/Day [...] 01/13/2024 4:00 PM EST Office Visit [facility] [address], [address] [place] [address] Tawny Webb MD [facility] [address] [place] [address] documented as of this encounter Visit Diagnoses Not on filedocumented in this encounter Additional Health Concerns Assessment Noted Time PHQ-9 Depression Total Score: 1 03/23/20 23 1:54 PM EDT documented as of this encounter Care Teams Mailroom Associate Relationship Specialty Start Date End Date [facility] [address] [place] [address] PCP - General Family Medicine 10/20/23 documented as of this encounter
--- OUTSIDE RECORDS SUMMARY | 2023-12-22 07:45 | XMS_ITS | Encounter Summary ---
Author Name Unknown Organization [facility] Address [address] [place] [address] Care Team Providers Care Collet Driller Name Role Phone Elsewhere, Pcp Primary Care Provider Unavailabl e Reason for Visit * Reason Comments Follow-up Regarding medication - daughter feels the dosage of Rexulti may need to be adjusted as she is still having outbursts. * Outpatient (Routine) - Closed Specialty Diagnoses / Procedures Referred By Getachew dubon Referred To Contact Family Medicine Anila Clark M.D. [address] [place] [phone] [facility] Region Referral ID Status Reason Start Date Expiration Date Visits Re quested Visits Authorized [id number] Closed 05/29/2023 05/28/2026 1 1 Encounter Details Date Type Department Care Team (Late st Contact Info) Description 07/30/2023 1:15 PM CDT Telemedicine Department of Family Medicine, [facility], in [address] [phone] Anila Clark M.D. [address] [place] [phone] Alzheimer's Disease (HCC) (Primary Dx); Dementia In Other Diseases Classified Elsewhere, Severe, With Agitation (HCC); Abnormal Lung Chest Xray Discharge Disposition: Home [...] often do you attend chur ch or buddhist services? Never 04/15/2023 Do you belong to any clubs o r organizations such as oriental orthodox groups, unions, fraternal or athletic groups, or [...] 04/15/2023 PHQ-2 Answer Date Recorded PHQ-2 Score 6 05/17/2023 [facility] of Occupat ional [facility] - Occupational Stress Questionnaire Answer Date [...] place to sleep or slept in a half-way (including now)? No 04/15/2023 Depression Answer Date Recor ded PHQ-9 Total Score (max 27) 17 05/17 Nutrition Answer Date Recorded Nutrition: EVOO Fat [...] AM CDT documented as of this encounter Progress Notes * Anila Clark M.D. - 07/30/2023 1:15 PM CDT SUBJECTIVE CHIEF COMPLAINT / REASON FOR VISIT Sarina Klein is a 88 y.o. female who presents for evaluation of Follow-up ( Regarding medication -daughter feels the dosage of Rexulti may need to be adjusted as she is still having outbursts.). Patient was seen and examined today via video visit. Patient location: Private home on file. HISTORY OF PRESENT ILLNESS She is overall doing much better from her hospital stay. Appetite has improved significantly. They are still working on increased fluids. She did have 3 glasses of orange juice and 2 cups of tea today. They are on the Rexulti 0.5mg daily for only several days now, but things are much more positive compared to the Lexapro. There can still be outbursts at times. [place] She frequently asks to go home and consider this to be her home. She is not taking the cholesterol medication and they are not planning to restart. No fevers, chills, new cough, shortness of breath. OBJECTIVE No vitals were taken due to video visit. PHYSICAL EXAM General: Pleasant, well groomed. Initially alert and later sleepy as visit was during her usual naptime. Respiratory: Breathing comfortably on room air: no accessory muscle use with breathing. Regular rate. No audible stridor, wheeze, distress. Psychiatric: Flat affect. Limited words. Pleasant at time of video. ASSESSMENT / PLAN 1. Alzheimer's Disease (HCC) 2. Dementia In Other Diseases Classified Elsewhere, Severe, With Agitation (HCC) She has not completed Rexulti 0.5mg daily for one week yet, but due to some continued outbursts, they are planning to increase to 1mg daily next week and will need updated refill which was provided. Follow-up with Geriatric Psychiatry scheduled. Appreciate their input. - brexpiprazole (Rexulti) 1 mg tablet; Take 1 tablet (1 mg total) by mouth daily. Dispense: 30 tablet; Refill: 1 3. Abnormal Lung Chest Xray Follow-up chest xray scheduled. For the follow-up chest xray, if things are stable, they are currently leaning towards no follow-up CT or pulmonary follow- up, but it will be helpful to have a new baseline in case of concern for pneumonia or pulmonary symptoms in the future. Anila Clark M.D. 07/30/23 Provider location: [facility] documented in this encounter Plan of Treatment Not on file documented as of this encounter Visit Diagnoses Diagnosis Alzheimer's Disease (HCC)- Primary Dementia In Other Diseases Classified Elsewhere, Severe, With Agitation (HCC) Abnormal Lung Chest Xray documented in this encounter Additional Health Concerns Assessment Noted Time PHQ-9 Depression Total Score: 17 023 12:50 PM CDT documented as of this encounter Care Teams Collet Driller Relationship Specialty Start Date End Date Elsewhere, Pcp PCP - General Internal Medicine 05/31/23 documented as of this encounter
--- OUTSIDE RECORDS SUMMARY | 2023-12-22 07:45 | XMS_ITS | Encounter Summary ---
Author Name Unknown [facility] Address [address] [place] [address] Care Team Providers Care Accreditation Coordinator Name Role Phone Tawny Webb MD Primary Care Provider [phone] Encounter Details Date Type Department Care Team (Latest Contact Info) Description 11/07/2023 Travel Social History Tobacco Use Types Packs/Day [...] 4:00 PM EST Office Visit [facility] [address], [address] [place] [address] Tawny Webb MD [facility] [address] [place] [phone] documented as of this encounter Visit Diagnoses Not on filedocumented in this encounter Additional Health Concerns Assessment Noted Time PHQ-9 Depression Total Score: 1 03/23/20 23 1:54 PM EDT documented as of this encounter Care Teams Accreditation Coordinator Relationship Specialty Start Date End Date [facility] [address] [place] [address] PCP - General Family Medicine 10/20/23 documented as of this encounter
--- OUTSIDE RECORDS SUMMARY | 2023-12-22 07:45 | XMS_ITS | Encounter Summary ---
Author Name Unknown Organization [facility] Address [address] [place] [address] Care Team Providers Care Water Service Dispatcher Name Role Phone Cali Park MD Primary Care Provider Encounter Details Date Type Department Care Team (Latest Contact Info) Description 02/03/2023 Travel Social History Tobacco Use Types Packs/Day [...] 01/13/2024 4:00 PM EST Office Visit [facility] [address], [address] [place] [address] Tawny Webb MD [address] [place] [address] [address] [place] [address] documented as of this encounter Visit Diagnoses Not on filedocumented in this encounter Additional Health Concerns Assessment Noted Time PHQ-9 Depression Total Score: 2 01/19/20 23 3:50 PM EST documented as of this encounter Care Teams Water Service Dispatcher Relationship Specialty Start Date End Date Cali Park MD [facility] [address] [place], [place] [id number] PCP - General Internal Medicine 02/03/23 10/19/23 documented as of this encounter
--- OUTSIDE RECORDS SUMMARY | 2023-12-22 07:46 | XMS_ITS | Encounter Summary ---
Author Name Unknown Organization [facility] Address [address] [place] [address] Care Team Providers Care Manager Health Name Role Phone Elsewhere, Pcp Primary Care Provider Unavailabl e Reason for Visit * Reason Onset Date Comments PT referral 07/07/2023 Encounter Details Date Type Department Care Team (Late st Contact Info) Description 07/07/2023 Clinical Communication Department of Family Medicine, [facility], in [address] [phone] Anila Clark M.D. [address] [place] [phone] PT referral Social History Tobacco Use Types Packs/Day Years [...] often do you attend chur ch or baptist services? Never 04/15/2023 Do you belong to any clubs o r organizations such as adventist groups, unions, fraternal or athletic groups, or [...] Answer Date Recorded PHQ-2 Score 6 05/17/2023 [facility] Answer Date Recorded [...] AM CDT documented as of this encounter Miscellaneous Notes * Telephone Encounter - Anila Clark M.D. - 07/07/2023 10:55 AM CDT Home Health Physical Therapy Referral was given at hospital discharge and they would like this faxed to [facility] [place]. documented in this encounter Plan of Treatment Not on file documented as of this encounter Visit Diagnoses Not on filedocumented in this encounter Additional Health Concerns Assessment Noted Time PHQ-9 Depression Total Score: 17 023 12:50 PM CDT documented as of this encounter Care Teams Manager Health Relationship Specialty Start Date End Date Elsewhere, Pcp PCP - General Internal Medicine 05/31/23 documented as of this encounter
--- OUTSIDE RECORDS SUMMARY | 2023-12-22 07:46 | XMS_ITS | Encounter Summary ---
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 [address] [place] [address] Referral ID Status Reason Start Date Expiration Date V isits Requested Visits Authorized [id number] Authorized 07/03/2023 07/02/2024 1 1 * Outpatient (Routine) - Closed Specialty Diagnoses / Procedures Referred By Getachew dubon Referred To Contact Re Santana M.D. [address] [place] [address] [facility] Referral ID Status Reason Start Date Expiration Date Visits Re quested Visits Authorized [id number] Closed 07/03/2023 07/02/2026 1 1 Scheduling Instructions We will be contacting you with more information on this referral. An appointment will be scheduled for you. More information is listed below. * Outpatient (Routine) - Closed Specialty Diagnoses / Procedures Referred By Getachew dubon Referred To Contact Re Santana M.D. [address] [place] [address] [facility] Region Referral ID Status Reason Start Date Expiration Date Visits Re quested Visits Authorized [id number] Closed 07/03/2023 07/02/2026 1 1 Scheduling Instructions We will be contacting you with more information on this referral. An appointment will be scheduled for you. More information is listed below. Encounter Details Date Type Department Care Team (Latest Contact Info) Description 07/01/2023 8:57 PM CDT - 07/03/2023 3:30 PM CDT Hospital Encounter [facility], Third Floor [address] [place] [id number] Chandana Wheeler M.B.B.S., [place] [address] [place] [address] [place] [phone] Re Santana M.D. [address] [place] [address] Spells Undifferentiated (Primary Dx); Unsteadiness Gait Disorder Non Orthopedic; Dementia In Other Diseases Classified Elsewhere, Severe, With Agitation (HCC); Malnutrition Severe Protein-Calorie (HCC) Discharge Disposition: Home or Self Care Social [...] often do you attend chur ch or druze services? Never 04/15/2023 Do you belong to any clubs o r organizations such as presybeterian groups, unions, fraternal or athletic groups, or [...] Answer Date Recorded PHQ-2 Score 6 05/17/2023 [facility] of Occupat ional Health - Occupational Stress [...] place to sleep or slept in a prison (including now)? No 04/15/2023 Depression Answer Date [...] Sign Reading Time Taken Comments Blood Pressure 121/85 07/03/2023 2:22 PM CDT Pulse 92 07/03/2023 2:22 PM CDT Temperature 36.2 ??C (97.2 ??F) 07/03/2023 2:22 PM CD T Respiratory Rate 16 07/03/2023 2:22 PM CDT Oxygen Saturation 96% 07/03/2023 2:22 PM CDT Inhaled Oxygen Concentration - - Weight 55.2 kg (121 lb 11.1 oz) 07/03/2023 5:45 AM CDT Height 165 cm (5' 4.96) 07/02/2023 12: 42 PM CDT Body Mass Index 20.28 07/02/2023 12:42 PM CDT documented in this encounter Discharge Summaries * Re Santana M.D. - 07/03/2023 3:30 PM CDT DISCHARGE SUMMARY BRIEF OVERVIEW Hospital: [facility] Discharge Provider: Re Santana M.D. Primary Care Providers: Elsewhere, Pcp (General) No address on file Primary Care Provider Phone Number: None Primary Care Provider Fax Number: None Admission Date: 07/01/2023 Discharge Date: 07/03/2023 PRINCIPAL DIAGNOSIS Spells Undifferentiated SECONDARY DIAGNOSES Principal Problem: Spells Undifferentiated Active Problems: Unsteadiness Gait Disorder Non Orthopedic Hyperlipidemia Dementia In Other Diseases Classified Elsewhere, Severe, With Agitation (HCC) Alzheimer's Disease (HCC) Hydrocephalus Normal Pressure (HCC) Depression Hematuria Chronic Malnutrition Severe Protein-Calorie (HCC) Elevated Blood Pressure Resolved Problems: * No resolved hospital problems. * DISCHARGE DISPOSITION Home or Self Care [1] ACTIVE ISSUES REQUIRING FOLLOW UP Nutrition Discharge Plan: Patient was assessed as severely malnourished during this hospitalization based upon the ASPEN criteria. Discharge facility sports physical therapist to monitor patient and adjust nutrition plan as indicated Monitor blood pressure during follow up visit 6 week CXR as noted below for pulmonary nodule OUTPATIENT FOLLOW UP Scheduled Appointments 07/07/2023 10:15 AM Anila Clark M.D. Family Medicine 07/30/2023 8:00 AM RST INTAKE VISIT POD D 04 Admitting/Central Scheduling 08/02/2023 2:30 PM Anila Clark M.D. Family Medicine 08/04/2023 1:00 PM Tee Upton M.D. Neurology 08/06/2023 1:00 PM Preet Thomas APRN, C.N.P., D.N.P. Psychiatry and Psychology 08/11/2023 1:00 PM LAB 01 [facility] Laboratory Medicine For appointment details refer to your Patient Appointment Guide. TEST RESULTS PENDING AT DISCHARGE Pending Labs None DETAILS OF HOSPITAL STAY REASON FOR ADMISSION Spells Undifferentiated HOSPITAL COURSE Sarina Klein is a 87 y.o. female with history of dementia, depression, hyperlipidemia, normal pressure hydrocephalus, chronic hematuria lives at home with the daughter presented to [facility] with frequent episodes over the last 3 days of reduced attentiveness and not responding to any stimuli. These spells last for about 15-20 minutes, also has had recent weight loss due to reduced oral food and fluid intake. Workup at the ED showed a white count 6.9 platelets of 244, BUN 32 creatinine 0.95, glucose was 79 anion gap 16 with a bicarb of 20 lactate was 2.1. With increased anion gap metabolic acidosis and normal blood sugars, normal lactate. Beta hydroxybutyrate 2.2 suggestive of starvation ketoacidosis she does not drink any alcohol. She was subsequently admitted for management of metabolic/toxic encephalopathy due to increased anion metabolic acidosis starvation ketoacidosis. 20 mm nodular opacity noted on CXR. This is indeterminate with main differential being pneumonia orpulmonary nodule. Patient had no respiratory symptoms therefore antibiotics were not initiated Suggest six-week followup chest radiographs to assure resolution. CT head was unremarkable. Acidosis resolved with fluid resuscitation. It is unclear if presenting symptoms were correlated to recent use of Lexapro and Simvastatin. Possible correlation with Lexapro as patient's daughter Renata noted increased somnolence and decreased appetite. Both medications were discontinued during admission On 07/02, I obtained a curbside consultation with psychiatrist provider on-call . With discontinuation of Lexapro, anticipate improvement in 1-5 days. Renata is concerned about recurrence of severe depression. When appropriate, Remeron could be initiated, also recommend follow-up with outpatient psychiatristto consider initiation of Rexulti. On the day of discharge, patient appeared to be at her usual state. She was pleasant, cooperative and responsive. She had occasional confusion but was redirectable. She isn't able to complete an entire meal but oral intake improved with redirection. She was seen by therapy team during admission, a referral will be placed for home health therapy iffeasible. Patient is discharging home with care from her daughter Renata, who has been a good advocate for Sarina and a diligent caregiver. Due to recent decreased appetite and weight loss, patient was evaluated by disintegrator with the following recommendations Severe Malnutrition (07/02/23) The patient meets the ASPEN Criteria of malnutrition based on: Average estimated Intake: Less than or equal to 50% for 5 or more days Weight Loss: >5% in 1 month (10% in < 1 month) Body Fat: Mild Loss Muscle Mass: Mild Loss Fluid Accumulation: Absent This is in the context of Acute Illness or Injury. Malnutrition Present Upon Admission: Yes Agree with Registered Dietitian's assessment and treatment plan: Nutrition Interventions Interventions: Increase nutrient intake with small, frequent meals and/or snacks, Vitamin and mineral supplements, Provide education to increase nutrition knowledge, Menu selection assistance, Medical food supplement (Higher kcal/pro foods and shakes; Therputic MVI) BP 121/85 Pulse 92 Temp 36.2 ??C Resp 16 Ht 165 cm Wt 55.2 kg SpO2 96% BMI 20.28 kg/m?? Constitutional General: She is not in acute distress. Pulmonary Effort: Pulmonary effort is normal. Skin General: Skin is warm and dry. Neurological Mental Status: She is alert. Psychiatric Mood and Affect: Mood and affect normal. Behavior: Behavior is cooperative. Cognition and Memory: Cognition is impaired. CONSULTS ORDERED DURING THIS ADMISSION IP CONSULT TO DIETITIAN IP CONSULT TO CARE MANAGEMENT IP CONSULT TO DIETITIAN CONDITION AT DISCHARGE stable Discharge instructions were provided to the patient and caregiver(s). Total time spent in discharge services today: 60 minutes. Edited by: RAMAN Vallejo, Health Information Management Sr. Tray Delivery Aide 08/12/23 7:08 AM CDT documented in this encounter Discharge Instructions * Discharge Instr - Diet* Liam Mo RDN, LD - 07/02/2023 12:56 PM CDT Increase nutrition intake with small, frequent meals Medical food supplement(s) of choice Vitamin-mineral supplementation * Attachments The following attachments cannot be sent through Care Everywhere. * Increasing Calorie Intake (Pashto) documented in this encounter Medications at Time of Discharge Medication Sig Dispensed Refills Start Date End Date aspirin [address] tablet Take 81 mg by mouth daily. 0 betamethasone dipropionate (DIPROLENE) 0.05 % lotion Apply 1 Application topically daily as needed (apply to left ear). 0 calcium citrate-vitamin D3 315 mg-6.25 mcg (250 Unit) per tablet Take 1 tablet by mouth daily as needed (dietary supplement). 0 magnesium oxide 500 mg capsule Take 500 mg by mouth at bedtime as needed (supplement/sleep). 0 multivitamin (MULTIPLE VITAMINS DAILY ORAL) Take 1 tablet by mouth daily as needed (dietary supplement). 0 potassium chloride (KLOR-CON) 20 mEq packetIndications:Hypok alemia Take 10 mEq by mouth daily with breakfast. 45 packet 3 05/26/2023 thiamine (VITAMIN B1) 100 mg tablet Take 1 tablet (100 mg total) by mouth daily. 30 tablet 0 07/03/2023 cholecalciferol (VITAMIN D3) 50 mcg (2,000 Unit) capsule Take 2,000 Units by mouth daily as needed (dietary supplement). 0 07/30/2023 mirtazapine (REMERON AMOS-TAB) 15 mg disintegrating tablet Dissolve 0.5 tablets (7.5 mg total) in the mouth at bedtime. 15 tablet 0 07/03/2023 07/30/2023 OLANZapine (ZyPREXA) 5 mg tablet Take 2.5 mg by mouth 2 (two) times a day. 0 08/17/2023 documented as of this encounter Progress Notes * Liam Mo RDN, KAM - 07/02/2023 12:47 PM CDT NUTRITION ASSESSMENT Patient admitted with undifferentiated spells. Pertinent past medical history includes dementia/Alzheimer disease and chronic hematuria. Patient remains confused, consult performed with daughter to identify nutrition habits at home. Significant weight loss in the past 1-2 weeks of roughly -6 kg. Detailed diet info below: Admitting Diagnosis: undifferentiated spells Social History: Lives at home with her daughter or vice versa Food and Nutrition Related History Previous Diet: Daughter reports pt was eating like a horse at home until about 2 weeks ago (really in the past 1 week). Foods include regular diet, pasta, ham and cheese sandys, grilled cheese, etc. Fluids include tea, water, and when po intake was poor daughter made premier portein shakes with icecream, but patient only consumed small amounts of this. Nutrition education/counseling: High Kcal/Pro foods and shakes Oral Intake Prior to Admission: Decrease Current Oral Intake/Diet Recall: Today has consumed 1 pudding cup and some bites of her meal/snack.Daughter plans on bringing in a Edkimo shake to try Appetite: Poor Skin Integrity/Edema: Reviewed Pertinent Medications/Supplements: dex-containing IVF, Therapeutic MVI, Javier MALNUTRITION ASSESSMENT Severe Malnutrition (07/02/23) in the context of Acute Illness or Injury based on ASPEN/AND criteria noted below: Weight Loss: >5% in 1 month (10% in < 1 month) Average estimated Intake: Less than or equal to 50% for 5 or more days Muscle Mass: Mild Loss Body Fat: Mild Loss Fluid Accumulation: Absent ANTHROPOMETRICS Admission Weight: 53.3 kg Weight: 53.3 kg Weight change since admission: 0 kg Weight Used for Equation Calculations: 56 kg Usual Body Weight: 60 kg (59-60 kg UBW for past 2-3 years) [place] Body Weight (Calculated) : 56.8 kg Adjusted Body Weight : 55.9 Kg Weight Change History: Lost roughly -6 kg in roughly 2 weeks (-10% loss) Wt Readings from Last 6 Encounters: 07/02/23 53.3 kg 07/01/23 60 kg 05/26/23 59 kg 05/17/23 59 kg 04/21/23 59 kg 04/13/23 59 kg PERTINENT LABS: Lower K+ (resolved) and Hgb (improving) Labs indicative of ketoacidosis now resolved ESTIMATED ENERGY NEEDS: Weight Used for Equation Calculations: 56 kg kcal/k-25 Estimated Energy Needs (Low): 1232 kcal/day Estimated Energy Needs (High): 1400 kcal/day Total Calorie Needs: 8869-5544 more ideal Weight Used to Calculate Protein Needs (Kg): 56 kg Method to Estimate Protein Needs (g/kg): 1 - 1.2 Estimated Protein Needs (Low): 56 Estimated Protein Needs (High): 67 Estimated Fluid Needs: 1680 mL/day (30 mL/kg) CURRENT NUTRITION ORDERS: Adult Diet Regular NUTRITION DIAGNOSIS: Malnutrition (undernutrition) related to unclear etiology (possible medicaiton reaction worsening dementia leading to lack of appetite?) as evidenced by severe weight loss in very short period of time; and eating < 50% of energy needs for > 5 days NUTRITION PLAN AND INTERVENTIONS: Nutrition Interventions Interventions: Increase nutrient intake with small, frequent meals and/or snacks, Vitamin and mineral supplements, Provide education to increase nutrition knowledge, Menu selection assistance, Medical food supplement RD to arrange high kcal chocolate shakes with meals; encouraged higher kcal foods and suggestions. Continue Therapeutic MVI. MONITORING/EVALUATION: Nutrition Monitoring/Evaluation Evaluation: Progressing Monitoring: Meals/Supplement Intake, Weight Status, Pertinent Labs, Mental Status/Confusion * Re Santana M.D. - 07/02/2023 11:34 AM CDT Images from the original note were not included. DATE OF ADMISSION: 07/01/2023 LOS: 1 day SUBJECTIVE Patient evaluated during Dyad rounds Daughter Renata at bedside Patient was sleeping during evaluation Per Renata Jolie was a bit agitated earlier Renata noted Jolie has a tendency to hide her medications, encourage nursing to truly ensure Jolie hastaken all her medications OT unable to complete evaluation this morning Review of Systems Please see HPI/Subjective for pertinent positives, otherwise ROS negative Medications aspirin, 81 mg, oral, Daily heparin (porcine), 5,000 Units, subcutaneous, Q8H [facility] multivitamin/mineral-adult, 1 tablet, oral, Daily OLANZapine, 2.5 mg, oral, BID potassium, 10 mEq, oral, Daily with breakfast sennosides-docusate sodium, 1 tablet, oral, BID thiamine, 100 mg, oral, Daily VITAL SIGNS Blood pressure 126/73, pulse 79, temperature 36.5 ??C, temperature source Temporal, resp. rate 18, height 165 cm, weight 53.3 kg, SpO2 95 %. Admission Weight: 53.3 kg Current Weight: 53.3 kg REVIEW OF SYSTEMS OBJECTIVE Constitutional General: She is sleeping. She is not in acute distress. Pulmonary Effort: Pulmonary effort is normal. Psychiatric Mood and Affect: Mood and affect normal. Lab Results I reviewed the labs and results in the EHR today. Results from last 7 days Lab Units 07/02/23 0553 07/01/23 1637 WBC x10(9)/L 5.6 6.9 HEMOGLOBIN g/dL 10.9* 13.0 HEMATOCRIT % 33.4* 40.1 PLATELETS AUTO x10(9)/L 218 244 Results from last 7 days Lab Units 07/02/23 0553 07/01/23 1637 SODIUM P mmol/L 139 143 CHLORIDE P mmol/L 106 107 BUN P mg/dL 26* 32* ESTIMATED GFR EGFR mL/min/BSA 69 58* ANION GAP P 11 16* AST P U/L -- 27 ALT P U/L -- 30 BILIRUBIN TOTAL P mg/dL -- 0.[address] Head Acute Stroke Protocol without IV Contrast Result Date: 07/01/2023 Impression: 1. No acute findings. 2. Stable age-appropriate diffuse cerebral atrophy with small vessel ischemic changes in the periventricular white matter. DX Chest 1 View Result Date: 07/01/2023 Impression: Mild cardiac enlargement. In the lateral aspect of the left lower lung, there is 20 mm nodular opacity. This is indeterminate with main differential being pneumonia or pulmonary nodule. Suggest six-week followup chest radiographs to assure resolution. IMPRESSION/REPORT/PLAN #1 Unsteadiness Gait Disorder Non Orthopedic #2 Hyperlipidemia #3 Dementia In Other Diseases Classified Elsewhere, Severe, With Agitation (HCC) #4 Alzheimer's Disease (HCC) #5 Hydrocephalus Normal Pressure (HCC) #6 Hematuria Chronic #7 Spells Undifferentiated #8 Malnutrition Severe Protein-Calorie (HCC) Etiology of metabolic and toxic encephalopathy remain unknown. Differentials do include like acidosis which has improved. Lexapro and Lipitor continue to be on hold, it is unclear if presenting symptoms were secondary to interactions. Appreciate curbside consultation with psychiatrist provider on-call. Symptoms are secondary to Lexapro, anticipate improvement in 1-5 days. Renata is concerned about recurrence of severe depression. When appropriate, Remeron could be she did, also recommend follow-up with outpatient psychiatrist to consider initiation of Rexulti. For now we will discontinue IV fluids. Implement fall precautions. Encourage oral intake. Monitor possible effects of discontinuing Lexapro. Expected Discharge Date: 07/03/2023. Projected disposition: Uncertain. Fall Injury Prevention: Patient lacks capacity; I have discussed the safety plan with nursing. Stable to discharge criteria (not yet met): Nutrition/hydration and Functional status Baseline Mobility: BMAT Level 4 (Able to stand and walk) Severe Malnutrition (07/02/23) The patient meets the ASPEN Criteria of malnutrition based on: Average estimated Intake: Less than or equal to 50% for 5 or more days Weight Loss: >5% in 1 month (10% in < 1 month) Body Fat: Mild Loss Muscle Mass: Mild Loss Fluid Accumulation: Absent This is in the context of Acute Illness or Injury. Malnutrition Present Upon Admission: Yes Agree with Registered Dietitian's assessment and treatment plan: Nutrition Interventions Interventions: Increase nutrient intake with small, frequent meals and/or snacks, Vitamin and mineral supplements, Provide education to increase nutrition knowledge, Menu selection assistance, Medical food supplement (Higher kcal/pro foods and shakes; Therputic MVI) HOSPITAL CARE ISSUES Code status: DNR/DNI IV fluids: IV and Feeding Tubes Active Currently Name Placement date Placement time Site Days Peripheral IV 07/01/23 20 G Right Antecubital 07/01/23 1813 Antecubital 1 Diet: Adult Diet Regular Diet:Current Diet Adult Diet Regular starting at 07/01 2131 VTE PPX: AntiCoag AntiPlatelet Meds IP/OP Heparins Refills Start End heparin (porcine) injection 5,000 Units 07/01/2023 5,000 Units, subcutaneous, Every 8 hours scheduled GI PPX:Not indicated 80 minutes spent in counseling, consulting, coordination of care, explanation of plan of care, chart review, [id number]. * Rocio John R.Ph. - 07/02/2023 10:32 AM CDT Images from the original note were not included. Admission Pharmacist Progress Note Reason for admission: Spells Undifferentiated [R68.89] PMH: Past Medical History: Diagnosis Date Cataract Dementia (HCC) Hyperlipidemia Psoriasis Skin Cancer (Primary) NOS OBJECTIVE New Hospital orders - Home medications changed and stopped by provider medication reconciliation: New acetaminophen tablet 500 mg (TYLENOL) bisacodyL suppository 10 mg (DULCOLAX) D5W and NaCl 0.45% with KCl 20 mEq/L infusion heparin (porcine) injection 5,000 Units polyethylene glycol powder packet 17 g (MIRALAX) sennosides-docusate sodium 8.6-50 mg per tablet 1 tablet (SENOKOT-S) thiamine tablet 100 mg (VITAMIN B1) Changed tdfiaanreroc-zlmn-KG-Ca-minerals 400 mcg (folic acid) tablet 1 tablet (THERAPEUTIC-M) - Medication details are different. OLANZapine tablet 2.5 mg (ZyPREXA) - Frequency changed from 2 times daily to 2 times daily. potassium chloride liquid 10 mEq (KAYCIEL) - Medication details are different. Stopped betamethasone dipropionate (DIPROLENE) 0.05 % lotion calcium citrate-vitamin D3 315 mg-6.25 mcg (250 Unit) per tablet cholecalciferol (VITAMIN D3) 50 mcg (2,000 Unit) capsule escitalopram (LEXAPRO) 5 mg tablet magnesium oxide 500 mg capsule Medications stopped during pharmacy medication history interview: Discontinued Medications Reason for Discontinue simvastatin (ZOCOR) 40 mg tablet OLANZapine (ZyPREXA) 2.5 mg tablet Using 5 mg tabs as 1/2 tabs Patient own medications: none Prophylaxis: heparin sc ASSESSMENT / PLAN Spells Undifferentiated Dementia, Severe, With Agitation (HCC) Alzheimer's Disease Will continue aspirin and try to correct any underlying metabolic/toxic encephalopathy, could be due to increased anion metabolic acidosis starvation ketoacidosis Depression Stopping Lexapro Continue olanzapine Note that she started Lexapro on May 22, has been sad/crying, sleeping all the time. Plan was to wean off of olanzapine due to Parkinsonism, but has helped with her aggression and is back at her starting dose. Is experiencing dry mouth, olanzapine likely contributing, but may need to treat this side effect rather than stopping this medication; Lexapro may have also been a factor. Has been sleeping excessively. Simvastatin recently stopped Goal would be to find the balance between mood and appropriate sleep Changes to medications anticipated at discharge:Genaro FloresPh. The information and recommendations contained in this note are based on information available at the time of documentation. * Aurelia Fountain P.T. - 07/02/2023 10:28 AM CDT After discussion with OT patient with advanced dementia and very guarded with cares and nursing hadsignificant difficulty with cares this AM. Patient not ready to learn due to not being able to understand the situation. Not appropriate for PT or participation in skilled assessment. * Rocio John R.Ph. - 07/02/2023 10:12 AM CDT Images from the original note were not included. Admission Medication History Note Prior to Admission Medications Med List Status: Pharmacy/RN Complete Set By: Rocio John R.Ph. at 07/02/2023 10:05 AM Status Comment 07/02/2023 10:05 AM Spoke with her daughter Renata who is also her caregiver and utilized list dispensed meds Taking? Last Dose Informant Start Date End Date LT aspirin [address] tablet 06/30/2023 at AM Child -- -- Take 81 mg by mouth daily. betamethasone dipropionate (DIPROLENE) 0.05 % lotion 07/01/2023 Child -- -- Apply 1 Application topically daily as needed (apply to left ear). Notes: Usually uses daily calcium citrate-vitamin D3 315 mg-6.25 mcg (250 Unit) per tablet Past Month Child -- -- Take 1 tablet by mouth daily as needed (dietary supplement). Notes: Take when able cholecalciferol (VITAMIN D3) 50 mcg (2,000 Unit) capsule Past Week Child -- -- Take 2,000 Units by mouth daily as needed (dietary supplement). Notes: Takes when able escitalopram (LEXAPRO) 5 mg tablet 06/30/2023 at PM Child 05/26/23 05/20/24 Take 1 tablet (5 mg total) by mouth daily. Patient taking differently: Take 5 mg by mouth at bedtime. magnesium oxide 500 mg capsule Past Week Child -- -- Take 500 mg by mouth at bedtime as needed (supplement/sleep). Notes: Takes when able multivitamin (MULTIPLE VITAMINS DAILY ORAL) Past Week Child -- -- Take 1 tablet by mouth daily as needed (dietary supplement). Notes: Takes when able OLANZapine (ZyPREXA) 5 mg tablet 06/30/2023 at pm Child -- -- Take 2.5 mg by mouth 2 (two) times a day. potassium chloride (KLOR-CON) 20 mEq packet 06/30/2023 at AM Child 05/26/23 -- Take 10 mEq by mouth daily with breakfast. Adherence issues: Reports missing a few doses a month Patient is not always able to take her supplements. Has tolerated 1/2 packet of KCl well. Started Lexapro on May 22, plan to stop that, has been sad/crying, sleeping all the time. Plan was to wean off of olanzapine due to Parkinsonism, but has helped with her aggression and is back at her starting dose. Simvastatin recently stopped. Mitzi Scherer.Ph. The information and recommendations contained in this note are based on information available at the time of documentation. * Preston Argueta OYolanda - 07/02/2023 9:26 AM CDT Per nursing staff patient with advanced dementia and very guarded with cares and nursing had significant difficulty with cares this AM. Patient not ready to learn due to not being able to understand the situation. Not appropriate for OT at this time. Will discontinue the orders. documented in this encounter H&P Notes * Chandana Wheeler M.B.B.S., M.D. - 07/01/2023 9:35 PM CDT Images from the original note were not included. Date of Admission: 07/01/2023 LOS: 0 days Primary Care Physician: ELSEWHERE, PCP SUBJECTIVE REASON FOR ADMISSION: Spells Undifferentiated HISTORY OF PRESENT ILLNESS Sarina Klein is a 87 y.o. female with history of dementia, depression, hyperlipidemia, normal pressure hydrocephalus, chronic hematuria lives at home with the daughter presented to [facility] with frequent episodes over the last 3 days of reduced attentiveness and not responding to any stimuli. These spells last for about 15-20 minutes, also has had recent weight loss due to reduced oral food and fluid intake. CT head could not be done at [facility] basic labs done in the ER at [facility] showed a white count 6.9 platelets of 244, BUN 32 creatinine 0.95, glucose was 79 anion gap 16 with a bicarb of 20 lactate was 2.1. With increased anion gap metabolic acidosis and normal blood sugars, normal lactaterequested for a beta hydroxybutyrate to rule out starvation ketoacidosis since she has not been eating or drinking much. Beta hydroxybutyrate came back elevated 2.2 suggestive of starvation ketoacidosis she does not drink any alcohol. Patient was transferred to [facility] for further management of spells, starvation ketoacidosis. Patient received 1 dose of IV ceftriaxone in the ER, does not have any urinary symptoms, fever chills no cough or productive sputum no abdominal pain Recently was started a few weeks ago on Lexapro, prior to that in April she was started on simvastatin REVIEW OF SYSTEMS As per HPI otherwise negative ALLERGIES/CONTRAINDICATIONS Allergies Allergen Reactions Iodine Hives (Reselect Reaction) CURRENT MEDICATIONS Current Outpatient Medications on File Prior to Encounter Medication Sig Dispense Refill Last Dose aspirin [address] tablet Take 81 mg by mouth daily. 06/30/2023 at AM escitalopram (LEXAPRO) 5 mg tablet Take 1 tablet (5 mg total) by mouth daily. 90 tablet 3 06/30/2023 at PM OLANZapine (ZyPREXA) 2.5 mg tablet 2.5 mg 2 (two) times a day. 06/30/2023 at PM potassium chloride (KLOR-CON) 20 mEq packet Take 10 mEq by mouth daily with breakfast. 45 packet 3 06/30/2023 at AM simvastatin (ZOCOR) 40 mg tablet Take 1 tablet (40 mg total) by mouth at bedtime. 90 tablet 3 06/30/2023 at PM betamethasone dipropionate (DIPROLENE) 0.05 % lotion as needed. calcium citrate-vitamin D3 315 mg-6.25 mcg (250 Unit) per tablet daily. cholecalciferol (VITAMIN D3) 50 mcg (2,000 Unit) capsule Take 2,000 Units by mouth daily. magnesium oxide 500 mg capsule Take 500 mg by mouth daily. multivitamin (MULTIPLE VITAMINS DAILY ORAL) Take by mouth daily. Patient History MEDICAL HISTORY Patient Active Problem List Diagnosis Unsteadiness Gait Disorder Non Orthopedic Hyperlipidemia Enterocolitis Due To Clostridium Difficile Not Specified As Recurrent Dementia In Other Diseases Classified Elsewhere, Severe, With Agitation (HCC) Alzheimer's Disease (HCC) Hydrocephalus Normal Pressure (HCC) Transient Ischemic Attack Depression Temper Control Difficulty (HCC) Hypokalemia Personal History Of Malignant Neoplasm Of Cervix Uteri Hematuria Chronic Cyst Renal Spells Undifferentiated Past Medical History: Diagnosis Date Cataract Dementia (HCC) Hyperlipidemia Psoriasis Skin Cancer (Primary) NOS SURGICAL HISTORY Past Surgical History: Procedure Laterality Date APPENDECTOMY OOPHORECTOMY, PARTIAL OR TOTAL, UNILATERAL OR BILATERAL;.. SUPRACERVICAL HYSTERECTOMY FAMILY HISTORY Family History Problem Relation Age of Onset Pancreatic cancer Mother Breast cancer Father's Sister SOCIAL HISTORY Social History Tobacco Use Smoking status: Former Types: Cigarettes Quit date: 11/22/1979 Years since quittin.6 Smokeless tobacco: Never Substance Use Topics Alcohol use: Not Currently OBJECTIVE VITAL SIGNS BP (!) 165/76 (BP Location: Left arm;Upper, Patient Position: Lying) Pulse 65 Temp 36.3 ??C (Temporal) Resp 14 Ht 165 cm Wt 53.3 kg SpO2 94% BMI 19.58 kg/m?? PHYSICAL EXAMINATION General: Conscious alert but not fully oriented HEENT: Normocephalic, atraumatic. No scleral icterus. Oral mucosa moist. Neck: Supple. No lymphadenopathy. Cardiovascular: Normal S1/S2. No murmurs. Lungs: Clear to auscultation Abdomen: Soft, nontender, nondistended. Positive bowel sounds. Extremities: Does have some bruises in the right lower extremity Neurological: Grossly intact. No intake or output data in the 24 hours ending 07/01/23 2135 DIAGNOSTICS Data Review CBC: Results from last 7 days Lab Units 07/01/23 1637 WBC x10(9)/L 6.9 HEMOGLOBIN g/dL 13.0 HEMATOCRIT % 40.1 PLATELETS AUTO x10(9)/L 244 BMP: Results from last 7 days Lab Units 07/01/23 1637 SODIUM P mmol/L 143 CHLORIDE P mmol/L 107 BUN P mg/dL 32* CREATININE mg/dL 0.95 CALCIUM P mg/dL 10.0 Coagulation: Results from last 7 days Lab Units 07/01/23 1637 INR 1.0 Cardiac Markers: Liver Panel: Results from last 7 days Lab Units 07/01/23 1637 ALBUMIN P g/dL 4.0 AST P U/L 27 ALT P U/L 30 ALK PHOS P U/L 117* BILIRUBIN TOTAL P mg/dL 0.5 Microbiology: No results found for this visit on 07/01/23 (from the past 72 hour(s)). EKG: ECG 12 Lead Result Date: 07/01/2023 Normal sinus rhythm Low anterior forces Nonspecific ST and T wave abnormality When compared with ECG of 13-APR-2023 16:22, No significant change was found Reviewed by Nicolás Crane III, CRAT Radiology: CT Head Acute Stroke Protocol without IV Contrast (Results Pending) ASSESSMENT / PLAN #1 Spells Undifferentiated #2 Unsteadiness Gait Disorder Non Orthopedic #3 Hyperlipidemia #4 Dementia In Other Diseases Classified Elsewhere, Severe, With Agitation (HCC) #5 Alzheimer's Disease (HCC) #6 Hydrocephalus Normal Pressure (HCC) #7 Hematuria Chronic Spells etiology for this is unclear could be metabolic/toxic encephalopathy due to increased anion metabolic acidosis starvation ketoacidosis, Will request a CT head without contrast to rule out any acute stroke Patient also has history normal pressure hydrocephalus Will continue aspirin and try to correct any underlying metabolic/toxic encephalopathy 2 Abnormal UA Patient does not have any urinary symptoms no abdominal pain or flank pain, white count is normal afebrile with previous history of C diff in October 2022 will hold on antibiotics for now 3 Increased anion gap metabolic acidosis Elevated beta hydroxybutyrate with low normal blood sugars Most likely due to starvation ketoacidosis due to low oral intake Will start on D5 normal saline and recheck labs in the morning Empirically start on thiamine 100 mg daily, no history of alcohol use Depression Continue on Lexapro olanzapine Hyperlipidemia auto sub Zocor to Lipitor as per protocol 20 mm nodular opacity in the left lower lung However patient is afebrile, white count is normal chest x-ray shows lung nodule Check procalcitonin, will need follow-up chest x-ray/CT scan to Follow-up on the lung nodule as an outpatient Afebrile no white count no respiratory symptoms hold on antibiotics and monitor for now DVT prophylaxis on heparin DNR DNI Will discontinue Lexapro and simvastatin ANTICOAGULANTS/DVT PROPHYLAXIS: AntiCoag AntiPlatelet Meds IP/OP Heparins Refills Start End heparin (porcine) injection 5,000 Units 07/01/2023 5,000 Units, subcutaneous, Every 8 hours scheduled DIET: Current Diet Adult Diet Regular starting at 07/01 2131 INFUSIONS: D5W and NaCl 0.45% with KCl 20 mEq/L infusion, 100 mL/hr LDA: Indwelling Urinary Catheter Non-latex 16 Fr. (Active) Placement Date/Time: 07/01/23 1703 Hand Hygiene Performed Prior to Insertion: Yes Sterile techniquefollowed?: Yes Catheter Type: Non-latex Tube Size (Fr.): 16 Fr. Catheter Balloon Size: 10 mL Urine Returned: Yes Stevens Catheter Present?: No. CODE STATUS: DNR/DNI Anticipated discharge date and discharge in 1-2 days. Total time spent 80 minutes Jennifer Michael M.D. documented in this encounter Consult Notes * Aurelia Fountain, P.T. - 07/02/2023 2:59 PM CDT Physical Therapy Inpatient Evaluation/Treatment SUBJECTIVE Patient's Name: Sarina Klein Referring/Attending Provider: Re Santana M.D. Medical Diagnosis: Spells Undifferentiated [R68.89] Reason for Referral: discharge planning Onset Date: 07/01/23 Payor: MEDICARE / Plan: MEDICARE A AND B / Product Type: Medicare / PERTINENT MEDICAL / SURGICAL HISTORY: Patient Active Problem List Diagnosis Unsteadiness Gait Disorder Non Orthopedic Hyperlipidemia Enterocolitis Due To Clostridium Difficile Not Specified As Recurrent Dementia In Other Diseases Classified Elsewhere, Severe, With Agitation (HCC) Alzheimer's Disease (HCC) Hydrocephalus Normal Pressure (HCC) Transient Ischemic Attack Depression Temper Control Difficulty (HCC) Hypokalemia Personal History Of Malignant Neoplasm Of Cervix Uteri Hematuria Chronic Cyst Renal Spells Undifferentiated Past Surgical History: Procedure Laterality Date APPENDECTOMY OOPHORECTOMY, PARTIAL OR TOTAL, UNILATERAL OR BILATERAL;.. SUPRACERVICAL HYSTERECTOMY History of Present Illness: weakness, spells chronic dementia. Prior Function/Occupational Profile: Prior Mobility/Functional Transfers Level of [place]: Needs assistance Previous Transfer/Mobility Assistance Comments: assist x 1 Gait Devices/Wheelchair Used: Front wheeled walker Prior Function/Occupational Profile Receives Help From: Family ADL Assistance: Required assistance Home Living Type of Home: House Home Layout: One level Home Access: Stairs to enter with rails Entrance Stairs: Number of Steps: 1 Family/Caregiver Present: Yes Patient/Caregiver Goals: safety, daugther states she wants further answers to cause of spell Additional Staff Present During Session: YARIEL Preston Activity Orders (From admission, onward) Start Ordered 07/01/232126 Activity: Up Ad Elva Until discontinued Comments: Encourage patient to be up for meals Ambulate as much as possible considering previous activity level and physical functioning Resume activity level following recovery from procedure and/or tests unless otherwise directed Question: Activity Level: Answer: Up Ad Elva 07/01/232132 Fall Risk (65 and older) Fall in the last 12 months: No Are you fearful of falling?: No Fall Risk Comments: Daughter states she never fell. She sat down in a sudden, but controlled fashion on a chair OBJECTIVE No pain behavior observed Measures - Tools Cognition Attention: Impairments noted Initiation: Slow/delayed initiation Orientation: Disoriented X4 Following Commands: Inconsistently following commands Safety/Judgment: Impairments noted Insight/Awareness of Deficits: Profound Activity Tolerance Endurance: Tolerates less than 10 min of activity Sitting Tolerance: Good Standing Tolerance: Fair Bed Mobility - Supine to Sit # of Assistants: 1 Level of Assistance: Minimal assistance Cuing: Verbal, Tactile Bed Mobility - Sit to Supine # of Assistants: 2 Level of Assistance: Minimal assistance Cuing: Tactile Comments: Patient required assist x 2 due to catheter and IV line Sit to Stand Transfers # of Assistants: 1 Transfer Surface: Bed, Chair Transfer Equipment: Gait belt, Front wheeled walker Level of Assistance: Minimal assistance Assessment/Delivery: Assessed, Therapist assisted, Facilitated Stand to Sit Transfers # of Assistants: 1 Transfer Surface: Bed, Chair Transfer Equipment: Gait belt, Front wheeled walker Level of Assistance: Minimal assistance Assessment/Delivery: Assessed, Therapist assisted, Facilitated Team Communication: Primary service was contacted and patient's status was discussed, chemical worker/care management was contacted and patient's status was discussed, Patient's nurse was contacted andpatient's status was discussed Upon arrival in room patient was found supine in bed, needs including call nelson/light in reach, alarm on, family present. Following treatment patient was left supine in bed, needs including call nelson/light in reach, alarm on, family present. Assessment Discharge Considerations: Discharge Therapy Needs - PT: Ongoing skilled physical therapy (home health or SNF would be appropriate, she may participate.) Clinical Impression: Patient is a 87 y.o. who has been hospitalized 1 day(s) with an admitting diagnosis of: Spells Undifferentiated [R68.89]. Prior to hospitalization patient was completing daily activities with assist x 1. Currently, patient presents with impairments including impaired mentation, mild weakness from baseline unsure if thisis progression of disease, medication side effect, or metabolic resulting in the following functional deficits: requires assist x 1 for mobility - daughter concerned for absence spells. Patient did not demonstrate spell during my session.. Rehab potential: Patient has Poor potential to achieve established physical therapy goals within the time frame outlined below. Education was provided regarding evaluative findings, diagnosis, prognosis, potential risks and benefits of rehabilitation interventions. Comorbid Conditions: Neurodegenerative disorder, Mental health disorder Personal Factors: Communication deficit, Learning style, Living situation, Motivation level, Safetyawareness, Sedentary lifestyle Clinical Presentation: Evolving Examination elements: 1-2 Clinical Decision Making: Low complexity clinical decision making Functional Goals and Timeframes: PT Goal #1: Patient demonstrate ability to transfer from supine with minimal assist PT Goal #1 Date: 07/02/23 PT Goal #1 Status: Achieved PT Goal #2: Patient to transfer sit to stand with minimal assist PT Goal #2 Date: 07/02/23 PT Goal #2 Status: Achieved PT Goal #3: Patient to ambulate with walker x 5 feet to allow for transfer PT Goal #3 Date: 07/02/23 PT Goal #3 Status: Achieved Plan Therapy Attestation: Physical Therapy Attestation Statement: Patient agrees with the plan of care and goals. Plan: Discontinue PT PT Frequency: PT Duration: Until goals are met Inpatient PT Received On Date: 07/02/23 Requires Inpatient Follow-Up: No Next Inpatient Appointment: Plan for next session: PT Plan Comments: Patient demonstrates ability to transfer with Minimal Assist Treatment interventions may include: Time Spent with Patient Evaluations PT Eval - Low Complexity: 12 min Therapeutic Interventions Therapeutic Activity (min): 17 min Time Tracking Total Timed Units (min): 17 min Total Treatment Time (min): 29 min * Emi Rogers L.G.S.W. - 07/02/2023 2:50 PM CDTAssociated Order(s): IP CONSULT TO CARE MANAGEMENT Psychosocial Assessment SUBJECTIVE DEMOGRAPHIC INFORMATION Referral Source: Early Screen for Discharge Planning Referral Reason: Discharge Planning Person(s) present during interview: reinier Branch Previous Psychosocial Assessment : No Primary care clinic and provider: / ELSEWHERE, PCP They were advised of the various topics that will be assessed during this evaluation. They consented to proceed. The information provided in the assessment is based on review of the medical record aswell as the interview. They were advised that the content of this interview will be shared with the health care team. It was discussed that staff are mandated reporters and they reported understanding. HISTORY OF PRESENT ILLNESS SOCIAL HISTORY Family / Household: Spouse Abrahan, Daughter Renata, Daughter Dianne of [place] (retired RN), Granddaughter is a Doctor and another grand daughter is a Nurse. 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 ENVIRONMENTAL SUPPORTS Current Living Situation: no steps on entry and one level living is available Anticipated modifications to the patient's home environment: None FUNCTIONAL STATUS (ADL's and IADL's) Dressing: needs assistance Feeding: independent Bathing: needs assistance Grooming: independent Toileting: independent Transfer to/from Bed, Chair, Etc.: independent Mobility: assistance of one Meal Prep: needs assistance Medication Setup/Administration: needs assistance Telephone Use: needs assistance Housekeeping: needs assistance Shopping: needs assistance Managing Finances: needs assistance It is anticipated that the patient will need assistance with None ASSISTIVE DEVICES Patient has the following equipment: cane and walker - front wheeled Patient anticipates potentially needing the following additional equipment: none Transportation needs: support from family/friends FORMAL AND INFORMAL RESOURCES No formal supports outside of reinier Yanez providing care FINANCES/INSURANCE Primary insurance: MEDICARE A AND B Secondary insurance: AARP Financial concerns: No ADVANCE DIRECTIVES Advance Directive: Patient has advance directive, copy not in chart OBJECTIVE Suicide Risk and Safety Risk Assessment: Suicidal: No Homicidal: No Current Stressors -Being in the hospital Coping Skills/Strengths -Involved family support and transport. ASSESSMENT / PLAN DISCUSSION SWS met with the patient Jolie and daughter Renata and explained the role of social work as a transcriber, patient advocate and mandated dining room hostess. The patient expressed understanding and gave permission to speak with family and/or friends. Also, gave permission for referrals to be sent to any agency that would be able to provide services to assist with a safe plan of care upon discharge. Discussed hospice services with patient and Renata. Provided vendor choices for Hospice agencies [facility]. Explained that Hospice services can be provided in several different environments. For example, in the patients own home, if the patient can safely care for himself/herself or family/friends provide 24 hour care. Hospice services can also be provided in a Retirement Facility(SNF) Patient pays p rivately for their room and board at the SNF, and Medicare pays 100% of their Hospice services. There are also, Residential Hospice houses, where the patient moves into a home in a very relaxing setting and caregivers assist as needed.(This is all private pay.) Answered any & all questions related to Hospice. (In compliance with Federal Disclosure Laws, [facility] has a financial interest in these facilities.) Accepted to [facility] - if and when the patient so chooses. Discussed Medicare coverage/non-coverage, including a medical need to remain in the hospital as an inpatient for at least three consecutive midnights, a skilled need, patients participation and the ability to document patients progress in order for coverage at a Retirement Facility(SNF). It was also explained that in the event of private pay, the local Retirement Facilities (SNF) require an minimum up-front amount of $5,000-$7,000( and can be up to $10,000 or more.) It was explained that this is a SNF requirement and has nothing to do with their hospital stay. Vendor Choices Provided:1st choice is [facility] , 2nd choice of preferred SNF is anywhere within a 50-100 mile radius. Referrals are pending at all facilities listed. Destination - Admitted Since 07/01/2023 Service Provider Request Status Selected Services Address Phone Fax Patient Preferred [facility] Pending - Request Sent N/A [address] [place] [id number] [phone] -- [facility] Pending - Request Sent N/A [address], [facility] [address] [phone] -- [facility] Pending - Request Sent N/A [address] [facility] [id number] -- [facility] Pending - Request Sent N/A [address] [facility] [phone] -- [facility] Pending - Request Sent N/A [address] [address] [facility] [address] [phone] -- [facility] Pending - Request Sent N/A [address] [facility] [address] [phone] -- [facility] Pending - Request Sent N/A [address] [facility] [address] [phone] -- [facility] Pending - Request Sent N/A [address] [facility] [address] [phone] -- [facility] Pending - Request Sent N/A [address] [facility] [address] -- Discussed transportation options with patient and Renata , including using a private vehicle, privately paying for a mobility van $75- up t $600 and non- emergent ambulance. Social Work Services (SWS) advised that if insurance does not cover the charge for non-emergent ambulance, it could be a minimum of $3,000 private pay. SWS explained that our physicians have documented the medical need for the transport, although, that does not assure coverage. The patient plans to discharge via private car. Social Work Services advised patient and family that transportation should be prior to 11:00 am on day of discharge. Social Work Services (SWS) contact information, including a phone number, was provided to patient, if any need or questions arise [phone] IMPRESSION Met with patient to complete early screen for discharge planning, and discuss plans for discharge. Reviewed the role of social work. Upon review of the electronic medical record, as well as thorough assessment with patient there does not appear to be any barriers to discharge.Patient was alert and oriented. Patient was sitting in bed at the time of assessment. Patient was clean in appearance and looked stated age. Patient made appropriate eye contact and was oriented to person, place, time, andsituation. Patient's memory, attention, perception, cognition, and thought process were all within normal limits. Patient's speech was clear and expressed intellectual and emotional insight into her/his medical needs, mental health needs, and discharge planning needs. Patient was cooperative and engaged with social work. INTERVENTIONS Completed Psychosocial Assessment. -Provided education on role of Social Work in the hospital setting, offered assistance if any needsarise. -Provided supportive Counseling: Empathetic, Active and Reflective Listening. -Psychosocial assessment completed -Assessed needs, identified risk and protective factors -Engaged patient using motivational interviewing (empathetic, active, and reflective listening) -Built rapport -Provided supportive, strengths-based and person-centered counseling related to hospitalization -Set expectations surrounding discharge planning -Coordinated care with nurse and service to ensure continuity of care PLAN 1.)Social Work Services will continue to provide supportive listening regarding current hospitalization and discharge needs as they arise. No additional DME or service needs indicated at this time. 2.) Involve family in discharge planning. Discharge planning is ongoing - No barriers to discharge indicated at this time. Social Work Services (SWS) contact information, including a phone number, was provided to patient, if any need or questions arise. Social Work Servicewill continue to follow to assist in facilitating a safe, timely & appropriate discharge when medically stable. Jayden Delgadillo 07/02/2023 documented in this encounter Nursing Notes * Marixa Cortes R.N. - 07/03/2023 4:33 AM CDT Problem: PAIN - ADULT Goal: PT VERBALIZES/DEMONSTRATES ADEQUATE COMFORT LEVEL OR BASELINE Outcome: Progressing Problem: INFECTION - ADULT Goal: Absence of infection during hospitalization Outcome: Progressing Problem: SKIN/TISSUE INTEGRITY Goal: Skin/Tissue integrity maintained or improved Outcome: Progressing Goal: Oral and Nasal mucous membranes remain intact Outcome: Progressing Problem: SAFETY ADULT Goal: Maintain a safe environment Outcome: Progressing Problem: DISCHARGE PLANNING Goal: Patient discharge needs identified Outcome: Progressing Problem: SAFETY ADULT - RISK FOR FALL AND OR FALL INJURY Goal: Patient remains free from fall/fall injury Outcome: Progressing Problem: POTENTIAL OR ACTUAL PRESSURE INJURY-ADULT Goal: Manage sensory Perception deficits to maintain and/or improve skin integrity Outcome: Progressing Goal: Maintain optimal skin moisture to ensure or improve skin integrity Outcome: Progressing Goal: Achieve optimal activity and/or mobility to maintain or improve skin integrity Outcome: Progressing Goal: Nutrient intake appropriate for improving, restoring or maintaining skin integrity Outcome: Progressing Goal: Minimize friction and/or shear to maintain or improve skin integrity Outcome: Progressing Problem: Compromised Skin Integrity Goal: Skin/Tissue integrity maintained or improved Outcome: Progressing Goal: Oral and Nasal mucous membranes remain intact Outcome: Progressing Goal: Incisions, wounds, or drain sites healing without S/S of infection Outcome: Progressing Problem: Incontinence and/or Moisture Goal: Skin integrity is maintained or improved Outcome: Progressing Shift Goals: Clinical Goals for the Shift: Patient will remain safe and free from falls Identify possible barriers to meeting goals/advancing plan of care: confusion End of Shift Summary: Patient has remained safe and free from falls. She has not tried to get up onher own, but does not use the call light appropriately either, remains confused. Patient was unableto void after having stevens catheter taken out this afternoon, she was I&O cathed at 0100 for 500 ml. * Hilary Mcmullen R.N. - 07/02/2023 4:07 AM CDT Shift Goals: Clinical Goals for the Shift: Pt will remain free from falls this shift. Identify possible barriers to meeting goals/advancing plan of care: none End of Shift Summary: Pt remains free from falls, no c/o pain, pt resting much of this shift, continues to have hematuria. 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, Severe, With Agitation (HCC) Malnutrition Severe Protein-Calorie (HCC) Ordered: 07/03/2023 documented as of this encounter Procedures Procedure Name Priority Date/Time Associated Diagnosis Comments BASIC METABOLIC PANEL, S/P Routine 07/03/2023 1:49 PM CDT ADULT OXYGEN THERAPY Routine 07/02/2023 8:01 AM CDT BETA-HYDOXYBUTYRA TE, POCT, B Routine 07/02/2023 5:53 AM CDT CBC WITH DIFFERENTIAL, B Routine 07/02/2023 5:53 AM CDT CREATINE KINASE (CK), S Routine 07/02/2023 5:53 AM CDT BASIC METABOLIC PANEL, S/P Routine 07/02/2023 5:[address] HEAD ACUTE STROKE PROTOCOL WITHOUT IV CONTRAST RAD - Emergent (Fastest; for the most critically ill patients) 07/01/2023 9:55 PM CDT ADULT OXYGEN THERAPY Routine 07/01/2023 9:33 PM CDT ADULT OXYGEN THERAPY Routine 07/01/2023 9:33 PM CDT documented in this encounter Results * (ABNORMAL) Basic Metabolic Panel (07/03/2023 1:49 PM CDT) Potassium, P 3.7 3.6 - 5.2 mmol/L 07/03/2023 2:12 PM CDT [facility] Sodium, P 142 135 - 145 mmol/L 07/03/2023 2:12 PM CDT [facility] Chloride, P 106 98 - 107 mmol/L 07/03/2023 2:12 PM CDT [facility] Bicarbonate, P 25 22 - 29 mmol/L 07/03/2023 2:12 PM CDT [facility] Anion Gap, P 11 7 - 15 07/03/2023 2:12 PM CDT [facility] BUN (Blood Urea Nitrogen), P 17 6 - 21 mg/dL 07/03/2023 2:12 PM CDT [facility] Creatinine 0.99 0.59 - 1.04 mg/dL 07/03/2023 2:12 PM CDT [facility] Estimated GFR (eGFR) 55(L) >=60 mL/min/BSA 07/03/2023 2:12 PM CDT [facility] Comment: Estimated GFR calculated using the 2020 CKD_EPI creatinine equation. Calcium, Total, P 9.9 8.8 - 10.2 mg/dL 07/03/2023 2:12 PM CDT [facility] Glucose, P 131 70 - 140 mg/dL 07/03/2023 2:12 PM CDT [facility] Blood (Blood, Venous) 07/03/2023 1:49 PM CDT 07/03/2023 1:52 PM CDT Re Santana M.D. LAB BLOOD ADD-ON [facility] [address] [place] [id number], [facility] in [address] [address] * CK (Creatine Kinase) (07/02/2023 5:53 AM CDT) Creatine Kinase, P 46 26 - 192 U/L 07/02/2023 6:25 AM CDT [facility] Blood (Blood, Venous) 07/02/2023 5:53 AM CDT 07/02/2023 5:58 AM CDT Chandana Rodriguez M.D. LAB BLOOD ADD-ON [facility] [address] [facility] [place] [address], [facility] in [address] [address] * Beta-hydroxybutyrate, Point of Care Testing, Blood (07/02/2023 5:53 AM CDT) [facility] Beta-hydroxybut yrate, POCT, B 0.1 0.0 - 0.5 mmol/L 07/02/2023 6:30 AM CDT [facility] Blood (Blood, Venous) 07/02/2023 5:53 AM CDT 07/02/2023 5:58 AM CDT Chandana Rodriguez M.D. LAB BLOOD NON ADD-ON [facility] [address] [place] [id number], [facility] in [address] [address] * (ABNORMAL) CBC with Differential, Blood (07/02/2023 5:53 AM CDT) [facility] Hemoglobin 10.9(L) 11.6 - 15.0 g/dL 07/02/2023 6:18 AM CDT [facility] Hematocrit 33.4(L) 35.5 - 44.9 % 07/02/2023 6:18 AM CDT [facility] Erythrocytes 3.72(L) 3.92 - 5.13 x10(12)/L 07/02/2023 6:18 AM CDT [facility] MCV 89.8 78.2 - 97.9 fL 07/02/2023 6:18 AM CDT [facility] RBC Distrib Width 13.6 12.2 - 16.1 % 07/02/2023 6:18 AM CDT [facility] Platelet Count 218 157 - 371 x10(9)/L 07/02/2023 6:18 AM CDT [facility] Leukocytes 5.6 3.4 - 9.6 x10(9)/L 07/02/2023 6:18 AM CDT [facility] Neutrophils 3.23 1.56 - 6.45 x10(9)/L 07/02/2023 6:18 AM CDT [facility] Lymphocytes 1.60 0.95 - 3.07 x10(9)/L 07/02/2023 6:18 AM CDT [facility] Monocytes 0.41 0.26 - 0.81 x10(9)/L 07/02/2023 6:18 AM CDT [facility] Eosinophils 0.37 0.03 - 0.48 x10(9)/L 07/02/2023 6:18 AM CDT [facility] Basophils 0.03 0.01 - 0.08 x10(9)/L 07/02/2023 6:18 AM CDT [facility] Blood (Blood, Venous) 07/02/2023 5:53 AM CDT 07/02/2023 6:13 AM CDT Chandana Rodriguez M.D. LAB BLOOD ADD-ON [facility] [address] [place] [address], [facility] in [place] [address] [place] [id number] * (ABNORMAL) Basic Metabolic Panel (07/02/2023 5:53 AM CDT) Potassium, P 3.5(L) 3.6 - 5.2 mmol/L 07/02/2023 6:22 AM CDT [facility] Sodium, P 139 135 - 145 mmol/L 07/02/2023 6:22 AM CDT [facility] Chloride, P 106 98 - 107 mmol/L 07/02/2023 6:22 AM CDT [facility] Bicarbonate, P 22 22 - 29 mmol/L 07/02/2023 6:22 AM CDT [facility] Anion Gap, P 11 7 - 15 07/02/2023 6:22 AM CDT [facility] BUN (Blood Urea Nitrogen), P 26(H) 6 - 21 mg/dL 07/02/2023 6:22 AM CDT [facility] Creatinine 0.82 0.59 - 1.04 mg/dL 07/02/2023 6:22 AM CDT [facility] Estimated GFR (eGFR) 69 >=60 mL/min/BSA 07/02/2023 6:22 AM CDT [facility] Comment: Estimated GFR calculated using the 2020 CKD_EPI creatinine equation. Calcium, Total, P 9.2 8.8 - 10.2 mg/dL 07/02/2023 6:22 AM CDT [facility] Glucose, P 143(H) 70 - 140 mg/dL 07/02/2023 6:22 AM CDT [facility] Blood (Blood, Venous) 07/02/2023 5:53 AM CDT 07/02/2023 5:58 AM CDT Chandana Rodriguez M.D. LAB BLOOD ADD-ON [facility] [address] [place] [address], [facility] in [place] [address] [place] [address] * CT Head Acute Stroke Protocol without IV Contrast (07/01/2023 9:55 PM CDT) Anatomical Region Laterality Modality Head, Neuroradiology RST LOS , Neuroradiology ARZ LOS, Neuroradiology FLA LOS N/A Computed Tomography 07/01/2023 9:56 PM CDT Impressions 07/01/2023 9:59 PM CDT 1. No acute findings. 2. Stable age-appropriate diffuse cerebral atrophy with small vessel ischemic changes in the periventricular white matter. Narrative 07/01/2023 9:59 PM CDT EXAM: CT HEAD ACUTE STROKE PROTOCOL WITHOUT IV CONTRAST COMPARISON: 04/13/2023 FINDINGS: There is stable age-appropriate diffuse cerebral atrophy with moderate small vessel ischemic changes in the periventricular white matter. There is no intracranial hemorrhage or evidence of an acute stroke. The ventricles are normal in size, shape and position for age, with no midline shift or other mass effect. Stroke Alert Communication: Via [employer] Secure Chat at 9:57 PM on 07/01/2023. Procedure Note Isaka Shepherd M.D. - 07/01/2023 EXAM: CT HEAD ACUTE STROKE PROTOCOL WITHOUT IV CONTRAST COMPARISON: 04/13/2023 FINDINGS: There is stable age-appropriate diffuse cerebral atrophy withmoderate small vessel ischemic changes in the periventricular white matter. There is nointracranial hemorrhage or evidence of an acute stroke. The ventricles are normal in size, shape andposition for age, with no midline shift or other mass effect. Stroke Alert Communication: Via [employer] Secure Chat at 9:57 PM on07/01/2023. IMPRESSION: 1. No acute findings. 2. Stable age-appropriate diffuse cerebral atrophy with small vesselischemic changes in the periventricular white matter. Chandana Rodriguez M.D. 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, Severe, With Agitation (HCC) Malnutrition Severe Protein-Calorie (HCC) Alzheimer's Disease (HCC) Dementia In Other Diseases Classified Elsewhere, Severe, With Agitation (HCC) Hyperlipidemia Hydrocephalus Normal Pressure (HCC) Unsteadiness Gait Disorder Non Orthopedic Hematuria Chronic Malnutrition Severe Protein-Calorie (HCC) documented in this encounter Admitting Diagnoses Diagnosis Spells Undifferentiated documented in this encounter Administered Medications Inactive Administered Medications - up to 3 most recent administrations Medication Order MAR Action Action Date Dose Rate Site aspirin chewable tablet 81 mg 81 mg, oral, Daily, First dose on Wed07/01/23 at 2200 Given 07/01/2023 10:44 PM CDT [address] tablet 81 mg 81 mg, oral, Daily, First dose on Wed07/02/23 at 0900, Swallow whole. Do NOT crush, chew, or split tablet. Given 07/03/2023 8:28 AM CDT 81 mg Given 07/02/2023 10:34 AM CDT 81 mg atorvastatin tablet 20 mg (LIPITOR) 20 mg, oral, Daily at bedtime, First dose on Wed07/01/23 at 2215, atorvaSTATin 20 mg oral daily was interchanged for simvastatin 5-40 mg oral daily Given 07/01/2023 10:26 PM CDT 20 mg D5W and NaCl 0.45% with KCl 20 mEq/L infusion 100 mL/hr, intravenous, Continuous, Starting on Wed07/01/23 at 2200 New Bag 07/01/2023 10:27 PM CDT 100 mL/hr 100 mL/hr D5W and NaCl 0.45% with KCl 20 mEq/L infusion 100 mL/hr, intravenous, Continuous, Starting on Wed07/02/23 at 0815 New Bag 07/02/2023 8:00 AM CDT 100 mL/hr 100 mL/hr escitalopram tablet 5 mg (LEXAPRO) 5 mg, oral, Daily at bedtime, First dose on Wed07/01/23 at 2215 Given 07/01/2023 10:26 PM CDT 5 mg heparin (porcine) injection 5,000 Units 5,000 Units, subcutaneous, Every 8 hours scheduled, First dose on Wed07/01/23 at 2200 Given 07/03/2023 2:27 PM CDT 5,000 Units Left Upper Abdomen Given 07/03/2023 5:32 AM CDT 5,000 Units L eft Lower Abdomen Given 07/02/2023 9:32 PM CDT 5,000 Units R ight Lower Abdomen bkhtbulaolxs-uier-GI-Ca-minerals 400 mcg (folic acid) tablet 1 tablet (THERAPEUTIC-M) 1 tablet, oral, Daily, First dose on Wed07/02/23 at 0900 Given 07/03/2023 8:28 AM CDT 1 tablet NaCl 0.9 % bolus 500 mL 500 mL, intravenous, at 500 mL/hr, Administer over 1 Hours, Once, On Wed07/02/23 at 0700, For 1 dose New Bag 07/02/2023 6:45 AM CDT 500 mL 500 mL/hr OLANZapine disintegrating tablet 2.5 mg (ZyPREXA ZYDIS) 2.5 mg, oral, 2 times daily, First dose on Wed07/02/23 at 2100, When splitting ODT at bedside, handle with gloves and a pill splitter to prevent moisture contact. Given 07/03/2023 8:27 AM CDT 2.5 mg Given 07/02/2023 8:29 PM CDT 2.5 mg OLANZapine tablet 2.5 mg (ZyPREXA) 2.5 mg, oral, 2 times daily, First dose on Wed07/01/23 at 2215 Given 07/02/2023 8:02 AM CDT 2.5 mg Given 07/01/2023 10:26 PM CDT 2.5 mg polyethylene glycol powder packet 17 g (MIRALAX) 17 g, oral, Daily PRN, constipation, Starting on Wed07/01/23 at 2126, Ordered sequence of administration: polyethylene glycol, then bisacodyl until BM achieved. Avoid mixing with starch-based thickened liquids. Given 07/02/2023 8:32 PM CDT 17 g potassium chloride liquid 10 mEq (KAYCIEL) 10 mEq, oral, Daily with breakfast, First dose on Wed07/02/23 at 0800, potassium orderable was interchanged for potassium liquid/effervescent/packet Dilute in 2 to 6 parts of juice or water. Given 07/03/2023 8:27 AM CDT 10 mEq Given 07/02/2023 8:14 AM CDT 10 mEq sennosides-docusate sodium 8.6-50 mg per tablet 1 tablet (SENOKOT-S) 1 tablet, oral, 2 times daily, First dose on Wed07/02/23 at 0900, Do not give if patient has diarrhea. Given 07/03/2023 8:27 AM CDT 1 tablet Given 07/02/2023 10:34 AM CDT 1 tablet thiamine tablet 100 mg (VITAMIN B1) 100 mg, oral, Daily, First dose on Wed07/01/23 at 2200 Given 07/03/2023 8:28 AM CDT 100 mg Given 07/01/2023 10:26 PM CDT 100 mg documented in this encounter Active and Recently Administered Medications Times are shown in CDT. Scheduled Medication Order 07/01/2023 07/02/2023 07/03/2023 aspirin chewable tablet 81 mg (CANCELED) 81 mg, oral, Daily, First dose on Wed07/01/23 at 2200 2244 (Given - Provider: Hilary Mcmullen R.N.) aspirin DR tablet 81 mg 81 mg, oral, Daily, First dose on Wed07/02/23 at 0900, Swallow whole. Do NOT crush, chew, or split tablet. 1034 (Given - Provider: Kary Baker R.N.) 0828 (Given - Provider: Genaro UmañaNSilver) atorvastatin tablet 20 mg (LIPITOR) (CANCELED) 20 mg, oral, Daily at bedtime, First dose on Wed07/01/23 at 2215, atorvaSTATin 20 mg oral daily was interchanged for simvastatin 5-40 mg oral daily 2226 (Given - Provider: Genaro LaneN.) escitalopram tablet 5 mg (LEXAPRO) (CANCELED) 5 mg, oral, Daily at bedtime, First dose on Wed07/01/23 at 2215 2226 (Given - Provider: Hilary Mcmullen R.N.) heparin (porcine) injection 5,000 Units 5,000 Units, subcutaneous, Every 8 hours scheduled, First dose on Wed07/01/23 at 2200 2226 (Given - Provider: Hilary Mcmullen R.N.) 0624 (Given - Provider: Hilary Mcmullen R.N.)1550 (Given - Provider: Kary Baker R.N.)2132 (Given - Provider: Marixa Cortes RSilverN.) 0532 (Given - Provider: Marixa Cortes RAmador)1427 (Given - Provider: Kary Baker R.N.) hedntapdpqsh-egru-VF-Ca-m inerals 400 mcg (folic acid) tablet 1 tablet (THERAPEUTIC-M) 1 tablet, oral, Daily, First dose on Wed07/02/23 at 0900 1034 (Not Given - Provider: Kary Baker R.N. - Reason: Patient/family refused) 0828 (Given - Provider: Jena Ceja RSilverNSilver) NaCl 0.9 % bolus 500 mL (COMPLETED) 500 mL, intravenous, at 500 mL/hr, Administer over 1 Hours, Once, On Wed07/02/23 at 0700, For 1 dose 0645 (New Bag - Provider: Genaro LaneNSilver) OLANZapine disintegrating tablet 2.5 mg (ZyPREXA ZYDIS) 2.5 mg, oral, 2 times daily, First dose on Wed07/02/23 at 2100, When splitting ODT at bedside, handle with gloves and a pill splitter to prevent moisture contact. 2028 (Given - Provider: Marixa Cortes R.N.) 0827 (Given - Provider: Jena Ceja R.N.) OLANZapine tablet 2.5 mg (ZyPREXA) (CANCELED) 2.5 mg, oral, 2 times daily, First dose on Wed07/01/23 at 2215 2226 (Given - Provider: Hilary Mcmullen R.N.) 0802 (Given - Provider: Kary Baker R.N.) potassium chloride liquid 10 mEq (KAYCIEL) 10 mEq, oral, Daily with breakfast, First dose on Wed07/02/23 at 0800, potassium orderable was interchanged for potassium liquid/effervescent/packe t Dilute in 2 to 6 parts of juice or water. 0814 (Given - Provider: Kary Baker R.N.) 0827 (Given - Provider: Jena Ceja R.N.) sennosides-docusate sodium 8.6-50 mg per tablet 1 tablet (SENOKOT-S) 1 tablet, oral, 2 times daily, First dose on Wed07/02/23 at 0900, Do not give if patient has diarrhea. 1034 (Given - Provider: Kary Baker R.N. - Comment: waited for daughter to come, confused pt)2031 (Not Given - Provider: Marixa Cortes R.N. - Reason: Patient/family refused) 0827 (Given - Provider: Genaro UmañaN.) thiamine tablet 100 mg (VITAMIN B1) 100 mg, oral, Daily, First dose on Wed07/01/23 at 2200 2226 (Given - Provider: Geanro LaneN.) 0828 (Given - Provider: Jena Ceja R.N.) Continuous Medication Order 07/01/2023 07/02/2023 07/03/2023 D5W and NaCl 0.45% with KCl 20 mEq/L infusion (CANCELED) 100 mL/hr, intravenous, Continuous, Starting on Wed07/01/23 at 2200 2227 (New Bag - Provider: Hilary Mcmullen R.N.) D5W and NaCl 0.45% with KCl 20 mEq/L infusion (CANCELED) 100 mL/hr, intravenous, Continuous, Starting on Wed07/02/23 at 0815 0800 (New Bag - Provider: Kary Baker R.N.) PRN Medication Order 07/01/2023 07/02/2023 07/03/2023 acetaminophen tablet 500 mg (TYLENOL) 500 mg, oral, Every 6 hours PRN, mild pain or score 1-3 of 10, headaches, fever, Starting on Nadine 07/01/23 at 2125 bisacodyL suppository 10 mg (DULCOLAX) 10 mg, rectal, Daily PRN, constipation, Starting on Nadine 07/01/23 at 2125, Ordered sequence of administration: polyethylene glycol, then bisacodyl until BM achieved. polyethylene glycol powder packet 17 g (MIRALAX) 17 g, oral, Daily PRN, constipation, Starting on Nadine 07/01/23 at 2125, Ordered sequence of administration: polyethylene glycol, then bisacodyl until BM achieved. Avoid mixing with starch-based thickened liquids. 2031 (Given - Provider: Chaparrita Cortes R.N.) documented in this encounter Additional Health Concerns Assessment Noted Time PHQ-9 Depression Total Score: 17 023 12:50 PM CDT documented as of this encounter Care Teams Tierce Filler Relationship Specialty Start Date End Date Elsewhere, Pcp PCP - General Internal Medicine 05/31/23 documented as of this encounter
--- OUTSIDE RECORDS SUMMARY | 2023-12-22 07:46 | XMS_ITS | Encounter Summary ---
Author Name Unknown Organization [facility] Address [address] [place] [address] Care Team Providers Care Taxi Driver Name Role Phone Elsewhere, Pcp Primary Care Provider Unavailabl e Encounter Details Date Type Department Care Team (Late st Contact Info) Description 07/28/2023 Orders Only Pharmacy Prior Auth [facility] [phone] Noemi Clayton Social History Tobacco Use Types Packs/Day Years [...] often do you attend chur ch or spiritism services? Never 04/15/2023 Do you belong to any clubs o r organizations such as mandaeism groups, unions, fraternal or athletic groups, or [...] Answer Date Recorded PHQ-2 Score 6 [facility]17[facility]20[facility] - Occupational Stress Questionnaire Answer Date Recorded [...] place to sleep or slept in a long term (including now)? No 04/15/2023 Depression Answer Date [...] AM CDT documented as of this encounter Plan of Treatment Not on file documented as of this encounter Visit Diagnoses Not on filedocumented in this encounter Additional Health Concerns Assessment Noted Time PHQ-9 Depression Total Score: 17 023 12:50 PM CDT documented as of this encounter Care Teams Taxi Driver Relationship Specialty Start Date End Date Elsewhere, Pcp PCP - General Internal Medicine 05/31/23 documented as of this encounter
--- OUTSIDE RECORDS SUMMARY | 2023-12-22 07:46 | XMS_ITS | Encounter Summary ---
Author Name Unknown Organization [facility] Address [address] [place] [address] Care Team Providers Care Dispatcher Bus And Trolley Name Role Phone Elsewhere, Pcp Primary Care Provider Unavailabl e Reason for Referral * Outpatient (Routine) - Closed Specialty Diagnoses / Procedures Referred By Getachew dubon Referred To Contact Family Medicine Anila Clark M.D. [address] [place] [phone] [facility] Referral ID Status Reason Start Date Expiration Date Visits Re quested Visits Authorized [id number] Closed 05/29/2023 05/28/2026 1 1 * Outpatient (Routine) - Closed Specialty Diagnoses / Procedures Referred By Getachew dubon Referred To Contact Neurology Diagnoses Alzheimer's Disease (HCC) Anila Clark M.D. [address] [place] [phone] Tee Upton M.D. [address] [place] [phone] Referral ID Status Reason Start Date Expiration Date Visits Re quested Visits Authorized [id number] Closed 05/26/2023 05/25/2026 1 1 Reason for Visit * Reason Comments Post Hospital Follow-up Encounter Details Date Type Department Care Team (Late st Contact Info) Description 05/26/2023 11:15 AM CDT Office Visit Department of Family Medicine, [facility], in [address] [phone] Anila Clark M.D. [address] [place] [phone] Alzheimer's Disease (HCC) (Primary Dx); Dementia In Other Diseases Classified Elsewhere, Severe, With Agitation (HCC); Hydrocephalus Normal Pressure (HCC); Dysfunction Thyroid; Transient Ischemic Attack; Hyperlipidemia; Hypokalemia; Hematuria Chronic; Cyst Renal Discharge Disposition: Home or Self Care Social [...] often do you attend chur ch or hoahaoism services? Never 04/15/2023 Do you belong to any clubs o r organizations such as tenriism groups, unions, fraternal or athletic groups, or [...] Answer Date Recorded PHQ-2 Score 6 05/17/2023 [facility] [...] place to sleep or slept in a fdc (including now)? No 04/15/2023 Depression Answer Date [...] Sign Reading Time Taken Comments Blood Pressure 111/70 05/26/2023 11:19 AM CDT Pulse 80 05/26/2023 11:19 AM CDT Temperature - - Respiratory Rate - - Oxygen Saturation - - Inhaled Oxygen Concentration - - Weight 59 kg (130 lb) 05/26/2023 11:[address] ated Height - - Body Mass Index 21.63 05/17/2023 12:51 PM CDT documented in this encounter Patient Instructions * Patient Instructions* Anila Clark M.D. - 05/26/2023 11:15 AM CDT Schedule lab visit for 1-2 weeks for repeat potassium after starting replacement with half packet (10 mEq) daily. We will recheck thyroid and cholesterol levels at that time also. Schedule follow-up with Neurology and keep follow-up with Psychiatry. We can also provide any medication refills or follow-up on recommendations from Psychiatry documented in this encounter Progress Notes * Anila Clark M.D. - 05/26/2023 11:15 AM CDT SUBJECTIVE CHIEF COMPLAINT / REASON FOR VISIT Sarina Klein is a 87 y.o. female who presents for evaluation of Post Hospital Follow-up. 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 This has been going well so far. She has been taking it in the morning. They have noticed some fatigue and one episode of diarrhea overnight but no recurrence. She has a history of C. Difficile also and recently had several days worth of antibiotics for a possible urinary tract infection. Currently on Zyprexa 2.5mg BID with plans to wean once Lexapro stabilized. Brexpiprazole (Rexulti), starting dose of 0.5 mg daily.was also discussed as a possible next step with Psychiatry with whom they have follow-up scheduled. They were recommended follow-up with Neurology in the fall. They discussed that risks for shunt andmedication management would outweigh benefit. She has been having a resting tremor on the right side as well as increasing stiffness with concerns for side effects from Zyprexa. She was previously on thyroid replacement therapy. This was stopped approximately 10 years ago. TSHlevels have been normal. No recent free T4 evaluations. #5 Suspected TIA Consultation with Neurology following event 04/21/2023 at which time baby aspirin daily was recommended. It was noted that she had atherosclerosis on her head CT making her susceptible to TIA/stroke.She was previously on statin therapy and tolerated it well. They are interested in restarting if indicated for stroke prevention to preserve mobility/ability to stay at home and prevent any future stroke. Per chart review she was previously on Simvastatin 40mg daily. She has not noticed any chest pain, shortness of breath, new pedal edema, palpitations, or reportedirregular heart rate. They do not feel a Holter monitor would be tolerated for atrial fibrillation screening and would like to hold off on this at present. #6 Chronic hematuria They report a history of chronic hematuria. She has had prior workup including CT stone protocol which did not show any secondary causes for hematuria. They are not interested in cystoscopy or urology consultation at present. They report that during the chronic hematuria, it will frequently be suspected that she has a UTI on urinalysis but as in the most recent case, her culture returned normal. She additionally has a history of C difficile infection with antibiotics. They report good water intake. No fevers or chills. No new incontinence, back pain, stomach pain, nausea. She has been having a good appetite. OBJECTIVE BP 111/70 (BP Location: Left arm, Patient Position: Sitting, Cuff Size: Regular) Pulse 80 Wt 59kg Comment: stated BMI 21.63 kg/m?? PHYSICAL EXAM Constitutional General: She is not in acute distress. Appearance: Normal appearance. She is not toxic-appearing. HENT Head: Normocephalic and atraumatic. Cardiovascular Rate and Rhythm: Normal rate and regular rhythm. Heart sounds: Normal heart sounds. No murmur heard. No friction rub. No gallop. Pulmonary Effort: Pulmonary effort is normal. No respiratory distress. Breath sounds: Normal breath sounds. No wheezing, rhonchi or rales. Musculoskeletal Right lower leg: No edema. Left lower leg: No edema. Neurological Mental Status: She is alert and oriented to person, place, and time. Mental status is at baseline. Cranial Nerves: No cranial nerve deficit. Psychiatric Mood and Affect: Mood normal. Behavior: Behavior normal. Thought Content: Thought content normal. Judgment: Judgment normal. Results for orders placed or performed during the hospital encounter of 04/13/23 Bacterial Culture, Aerobic + Susc, Urine Specimen: Urine, Midstream Specimen Source Site: Urine Result Value Ref Range Urine Culture Mixed microbiota (A) CBC with Differential, Blood Result Value Ref Range Hemoglobin 12.2 11.6 - 15.0 g/dL Hematocrit 37.1 35.5 - 44.9 % Erythrocytes 4.24 3.92 - 5.13 x10(12)/L MCV 87.5 78.2 - 97.9 fL RBC Distrib Width 14.3 12.2 - 16.1 % Platelet Count 264 157 - 371 x10(9)/L Leukocytes 7.3 3.4 - 9.6 x10(9)/L Neutrophils 5.64 1.56 - 6.45 x10(9)/L Lymphocytes 1.12 0.95 - 3.07 x10(9)/L Monocytes 0.48 0.26 - 0.81 x10(9)/L Eosinophils 0.08 0.03 - 0.48 x10(9)/L Basophils <0.04 0.01 - 0.08 x10(9)/L Comprehensive Metabolic Panel Result Value Ref Range Potassium, P 3.2 (L) 3.6 - 5.2 mmol/L Sodium, P 140 135 - 145 mmol/L Chloride, P 105 98 - 107 mmol/L Bicarbonate, P 22 22 - 29 mmol/L Anion Gap, P 13 7 - 15 BUN (Blood Urea Nitrogen), P 18 6 - 21 mg/dL Creatinine 0.82 0.59 - 1.04 mg/dL Estimated GFR (eGFR) 69 >=60 mL/min/BSA Calcium, Total, P 9.5 8.8 - 10.2 mg/dL Glucose, P 103 70 - 140 mg/dL Protein, Total, P 7.4 6.3 - 7.9 g/dL Albumin, P 4.3 3.5 - 5.0 g/dL Aspartate Aminotransferase (AST), P 31 8 - 43 U/L Alkaline Phosphatase, P 104 35 - 104 U/L Alanine Aminotransferase (ALT), P 23 7 - 45 U/L Bilirubin, Total, P 0.5 <=1.2 mg/dL CRP (C-Reactive Protein) Result Value Ref Range C-Reactive Protein (CRP), P 6.5 (H) <5.0 mg/L Urinalysis with Microscopic: Urine, Midstream Result Value Ref Range Source Urine, Urine, Midstream Clarity Cloudy (A) Clear Color Yellow Blood Trace (A) Negative Nitrite Negative Negative Leukocyte Esterase Trace (A) Negative Protein Trace mg/dL Glucose Negative Negative mg/dL Ketones, QI(U) Trace (A) Negative mg/dL Bilirubin Negative Negative pH 5.5 5.0 - 8.0 Specific [place] 1.025 1.001 - 1.035 Urobilinogen 0.2 0.2 - 1.0 mg/dL White Blood Cells 21-30 (A) /hpf Red Blood Cells 3-10 (A) 0 - 2 /hpf Dysmorphic Red Blood Cells <=25 <=25 % Squamous Cells Occ-3 /hpf Bacteria Present (A) None Seen ECG 12 Lead Result Value Ref Range Ventricular Rate ECG/Min 67 BPM PA Interval 142 ms QRSD Interval 76 ms QT Interval 428 ms QTC Interval 452 ms P Molena 28 degrees R Molena -28 degrees T Wave Molena 9 degrees ASSESSMENT / PLAN 1. Alzheimer's Disease (HCC) 2. Dementia In Other Diseases Classified Elsewhere, Severe, With Agitation (HCC) Doing well so far on Lexapro 5mg daily She has follow-up with Psychiatry for 1 month recheck. We are happy to follow-up with her regarding this medication also. - Return to provider in another specialty; Future - escitalopram (LEXAPRO) 5 mg tablet; Take 1 tablet (5 mg total) by mouth daily. Dispense: 90 tablet; Refill: 3 3. Hydrocephalus Normal Pressure (HCC) No additional interventions recommended per Neurology as risk likely outweighs any potential benefit. 4. Dysfunction Thyroid Previously on replacement therapy, will update labs. - T4 (Thyroxine), Free; Future - S-TSH (Thyroid-Stimulating Hormone - Sensitive); Future 5. Transient Ischemic Attack 6. Hyperlipidemia On baby aspirin daily . RRR on auscultation today. No palpitations and Holter declined as may lead to agitation. Will update Lipid panel and consider re- initiation of statin as she previously tolerated this well and they would like to optimize risk factor reduction. - Lipid Panel; Future 7. Hypokalemia Will start replacement therapy with 10mEq daily and repeat labs in 1 one week. - potassium chloride (KLOR-CON) 20 mEq packet; Take 10 mEq by mouth daily with breakfast. Dispense:45 packet; Refill: 3 - Potassium; Future 8. Hematuria Chronic Normal CT stone protocol. Discussed option of further evaluation with Urology for consideration regarding cystoscopy which they would like to hold off on at present. Anila Clark MD 05/26/2023 documented in this encounter Plan of Treatment Scheduled Referrals Name Type Priority Associated Diagnoses Orde r Schedule Return to provider in another specialty Outpatient Referral Routine Alzheimer's Disease (HCC) Expected: 06/26/2023 (Approximate), Expires: 08/26/2024 Family Medicine office visit (clinic) Outpatient Referral Routine Expected: 07/30/2023 (Approximate), Expires: 08/29/2024 documented as of this encounter Results * (ABNORMAL) Lipid Panel (06/03/2023 2:12 PM CDT) Triglycerides 158(H) mg/dL 06/03/2023 3:11 PM CDT CNFL Comment: ----REFERENCE VALUE---- Normal: <150 mg/dL Borderline High: 150-199 mg/dL High: 200-499 mg/dL Very High: > or =500 mg/dL Cholesterol, Total 286(H) mg/dL 2022 3:11 PM CDT CNFL Comment: ----REFERENCE VALUE---- Desirable: < 200 mg/dL Borderline High: 200 - 239 mg/dL High: > or = 240 mg/dL Cholesterol, LDL, Calculated 199(H) mg/dL 06/03/2023 3:11 PM CDT CNFL Comment: The markedly elevated LDL level is suggestive of a genetic condition such as familial hypercholesterolemia (FH) or familial defective apolipoprotein B-100 (FDB). Molecular genetic testing for FH and FDB is available through [facility]. ----REFERENCE VALUE---- Desirable: <100 mg/dL Above Desirable: 100-129 mg/dL Borderline High: 130-159 mg/dL High: 160-189 mg/dL Very High: >=190 mg/dL ----ADDITIONAL INFORMATION---- LDL cholesterol calculated using the Macias/NIH equation. Cholesterol, HDL 58 >=50 mg/dL 06/03/20 3:11 PM CDT CNFL Cholesterol, Non-HDL, Calculated 228(H) mg/dL 06/03/2023 3:11 PM CDT CNFL Comment: ----REFERENCE VALUE---- Desirable: <130 mg/dL Above Desirable: 130-159 mg/dL Borderline High: 160-189 mg/dL High: 190-219 mg/dL Very High: > or =220 mg/dL Fasting (8 HR or more) yes 06/03/2023 2:13 PM CDT CNFL Blood (Blood, Venous) 06/03/2023 2:12 PM CDT 06/03/2023 2:13 PM CDT Anila Clark M.D[place] [address], [place] [address] * S-TSH (Thyroid-Stimulating Hormone - Sensitive) (06/03/2023 2:12 PM CDT) TSH, Sensitive 2.5 0.3 - 4.2 mIU/L 06/03/2023 2:51 PM CDT [facility] Blood (Blood, Venous) 06/03/2023 2:12 PM CDT 06/03/2023 2:13 PM CDT Anila Clark M.D. LAB BLOOD ADD-ON Performing Organization Address [facility] Co de Phone Number [address] [address], [place] [address] * T4 (Thyroxine), Free (06/03/2023 2:12 PM CDT) T4 (Thyroxine), Free, P 0.9 0.9 - 1.7 ng/dL 06/03/2023 8:05 PM CDT [facility] Comment: Biotin has been identified by the automatic trimming sewer as a potential interfering substance. Higher concentrations of biotin may be found in multivitamins, hair/nail supplements, and workout supplements. If the result does not match clinical observations, repeat testing after patient refrains from the use of supplements for at least 12 hours. Blood (Blood, Venous) 06/03/2023 2:12 PM CDT 06/03/2023 7:31 PM CDT Anila Clark M.D. LAB BLOOD ADD-ON [facility] [address] [place] [address], [facility] RDWG [facility] in [place] [address] [phone] * Potassium (06/03/2023 2:12 PM CDT) Potassium, P 4.2 3.6 - 5.2 mmol/L 06/03/2023 3:10 PM CDT CNFL Blood (Blood, Venous) 06/03/2023 2:12 PM CDT 06/03/2023 2:13 PM CDT Anila Clark M.D. LAB BLOOD ADD-ON [facility] [address] [place] [address], [facility] CNFL [facility] in [address] [address] documented in this encounter Visit Diagnoses Diagnosis Alzheimer's Disease (HCC)- Primary Dementia In Other Diseases Classified Elsewhere, Severe, With Agitation (HCC) Hydrocephalus Normal Pressure (HCC) Dysfunction Thyroid Transient Ischemic Attack Hyperlipidemia Hypokalemia Hematuria Chronic Cyst Renal documented in this encounter Additional Health Concerns Assessment Noted Time PHQ-9 Depression Total Score: 17 023 12:50 PM CDT documented as of this encounter Care Teams Dispatcher Bus And Trolley Relationship Specialty Start Date End Date Elsewhere, Pcp PCP - General Internal Medicine 02/18/22 05/30/23 documented as of this encounter
--- OUTSIDE RECORDS SUMMARY | 2023-12-22 07:46 | XMS_ITS | Encounter Summary ---
Author Name Unknown Organization [facility] Address [address] [place] [address] Care Team Providers Care Care Coordinator Name Role Phone Elsewhere, Pcp Primary Care Provider Unavailabl e Encounter Details Date Type Department Care Team (Latest Contact Info) Description 06/03/2023 1:54 PM CDT - 06/03/2023 11:59 PM CDT Hospital Encounter Department of Laboratory Medicine in [address] [phone] Anila Clark M.D. [address] [place] [phone] Hypokalemia; Dysfunction Thyroid; Hyperlipidemia Discharge Disposition: Home or Self Care Social [...] often do you attend chur ch or sikh services? Never 04/15/2023 Do you belong to any clubs o r organizations such as shinto groups, unions, fraternal or athletic groups, or [...] Answer Date Recorded PHQ-2 Score 6 05/17/2023 [facility] - Occupational Stress Questionnaire Answer Date [...] place to sleep or slept in a residential (including now)? No 04/15/2023 Depression Answer Date [...] daily with breakfast. 45 packet 3 05/26/2023 cholecalciferol (VITAMIN D3) 50 mcg (2,000 Unit) capsule Take 2,000 Units by mouth daily as needed (dietary supplement). 0 07/30/2023 escitalopram (LEXAPRO) 5 mg tabletIndications:Myron ntia In Other Diseases Classified Elsewhere, Severe, With Agitation (HCC) Take 1 tablet (5 mg total) by mouth daily. 90 tablet 3 05/26/2023 07/03/2023 MELATONIN-THEANINE ORAL Melatonin Plus L-Theanine 10-5.5 mg. One tab at bedtime. 0 06/09/2023 OLANZapine (ZyPREXA) 2.5 mg tablet Take 2.5 mg by mouth 2 (two) times a day. 0 07/02/2023 simvastatin (ZOCOR) 40 mg tabletIndications:Hype rlipidemia Take 1 tablet (40 mg total) by mouth at bedtime. 90 tablet 3 06/08/2023 07/02/2023 documented as of this encounter Plan of Treatment Not on file documented as of this encounter Procedures Procedure Name Priority Date/Time Associated Diagnosis Comments LIPID PANEL, S Routine 06/03/2023 2:12 PM CDT Hyperlipidemia THYROID-STIMULATING HORMONE-SENSITIVE (S-TSH) Routine 06/03/2023 2:12 PM CDT Dysfunction Thyroid T4 (THYROXINE), FREE, S Routine 06/03/2023 2:12 PM CDT Dysfunction Thyroid POTASSIUM, S/P Routine 06/03/2023 2:12 PM CDT Hypokalemia documented in this encounter Results * (ABNORMAL) Lipid Panel [...] for FH and FDB is available through [facility]. ----REFERENCE VALUE---- Desirable: <100 mg/dL Above [...] CDT Anila Clark M.D. LAB BLOOD ADD-ON [facility] [address] [place] [phone], [facility] CNFL [facility] in [address] [address] * S-TSH (Thyroid-Stimulating Hormone - Sensitive) (06/03/2023 2:12 PM CDT) TSH, Sensitive 2.5 0.3 - 4.2 mIU/L 06/03/2023 2:51 PM CDT CNFL Blood (Blood, Venous) 06/03/2023 2:12 PM CDT 06/03/2023 2:13 PM CDT Anila Clark M.D. LAB BLOOD ADD-ON [address] [address], [facility] [address] [address] * T4 (Thyroxine), Free (06/03/2023 2:12 PM CDT) T4 (Thyroxine), Free, P 0.9 0.9 - 1.7 ng/dL 06/03/2023 8:05 PM CDT RDWG Comment: Biotin has been identified by the it operations manager as a potential interfering substance. Higher concentrations of biotin may be found in multivitamins, hair/nail supplements, and workout supplements. If the result does not match clinical observations, repeat testing after patient refrains from the use of supplements for at least 12 hours. Blood (Blood, Venous) 06/03/2023 2:12 PM CDT 06/03/2023 7:31 PM CDT Anila Clark M.D. LAB BLOOD ADD-ON [facility] [address] [place] [address], [place] RDWG [facility] in [place] [address] [address] * Potassium (06/03/2023 2:12 PM CDT) Potassium, P 4.2 3.6 - 5.2 mmol/L 06/03/2023 3:10 PM CDT CNFL Blood (Blood, Venous) 06/03/2023 2:12 PM CDT 06/03/2023 2:13 PM CDT Anila Clark M.D. LAB BLOOD ADD-ON [facility] [address] [place] [address], [facility] CNFL [facility] [place] [address] documented in this encounter Visit Diagnoses Diagnosis Hypokalemia Dysfunction Thyroid Hyperlipidemia documented in this encounter Additional Health Concerns Assessment Noted Time PHQ-9 Depression Total Score: 17 023 12:50 PM CDT documented as of this encounter Care Teams Care Coordinator Relationship Specialty Start Date End Date Elsewhere, Pcp PCP - General Internal Medicine 05/31/23 documented as of this encounter
--- OUTSIDE RECORDS SUMMARY | 2023-12-22 07:46 | XMS_ITS | Encounter Summary ---
Author Name Unknown Organization [facility] Address [address] [place] [address] Care Team Providers Care Program Checker Name Role Phone Elsewhere, Pcp Primary Care Provider Unavailabl e Reason for Visit * Reason Onset Date Comments Pre-visit Intake 07/30/2023 Encounter Details Date Type Department Care Team (Latest Contact Info) Description 07/30/2023 8:00 AM CDT Clinical Communication Virtual Review in [place], [place] [address] [place], [place] [address] Pre-visit Intake Social History Tobacco Use Types Packs/Day Years [...] often do you attend chur ch or gnosticist services? Never 04/15/2023 Do you belong to [...] Answer Date Recorded PHQ-2 Score 6 05/17/2023 [facility] - Occupational Stress Questionnaire Answer Date [...] documented as of this encounter Care Teams Program Checker Relationship Specialty Start Date End Date Elsewhere, Pcp PCP - General Internal Medicine 05/31/23 documented as of this encounter
--- OUTSIDE RECORDS SUMMARY | 2023-12-22 07:46 | XMS_ITS | Encounter Summary ---
Author Name Unknown Organization [facility] Address [address] [place] [address] Care Team Providers Care Fuse Cup Expander Name Role Phone Elsewhere, Pcp Primary Care Provider Unavailabl e Reason for Visit * Reason Onset Date Comments Neuro Problem 07/01/2023 Encounter Details Date Type Department Care Team (Late st Contact Info) Description 07/01/2023 Nurse Triage Department of Family Medicine, [facility], in [address] [phone] Paider, Ting Abbasi R.N. [address] [place] [phone] Neuro Problem Social History Tobacco Use Types Packs/Day Years [...] How often do you attend chur or scientology services? Never 04/15/2023 Do you belong to any clubs o r organizations such as latter-day groups, unions, fraternal or athletic groups, or [...] Answer Date Recorded PHQ-2 Score 6 05/17/2023 [facility] - Occupational Stress Questionnaire Answer Date [...] place to sleep or slept in a mcc (including now)? No 04/15/2023 Depression Answer Date [...] encounter Miscellaneous Notes * Telephone Encounter - Paider, Ting Abbasi R.N. - 07/01/2023 12:34 PM CDT Chief Complaint / Reason for Call Patient is a 87 y.o. female, daughter calling regarding Neuro Problem. Assessment Concern: Intermittent periods of somnolence, and not responding to pain/sternal rub. These episodeshappen sporadically, last about 15 mins, but episode are becoming increasingly longer. This morningthe patient was sitting on side of bed and isha daughter was going to help her stand to pull up herpants when the patient just sat herself down on the floor, eyes shut, like she is asleep. Of note, patient typically has tremors due to her Zyprexa, no new or worsening tremors noted. Present for: 3 days Home cares tried: Monitor vitals Calling to request: Advice The recommended disposition is Call EMS 911 Now. Consulted TeleEM, Jean Paul Zuluaga MD, he would like patient evaluated in the ED Reason for Disposition Difficult to awaken or acting confused (e.g., disoriented, slurred speech) Protocols used: Neurologic [id number] Care Advice Patient/Caregiver understands and will follow care advice?: Yes, able to teach back CALL EMS 911 NOW: * Immediate medical attention is needed. You need to hang up and call 911 (or an ambulance). CARE ADVICE given per Neurologic Deficit (Adult) guideline. documented in this encounter Plan of Treatment Not on file documented as of this encounter Visit Diagnoses Not on filedocumented in this encounter Additional Health Concerns Assessment Noted Time PHQ-9 Depression Total Score: 17 023 12:50 PM CDT documented as of this encounter Care Teams Fuse Cup Expander Relationship Specialty Start Date End Date Elsewhere, Pcp PCP - General Internal Medicine 05/31/23 documented as of this encounter
--- OUTSIDE RECORDS SUMMARY | 2023-12-22 07:46 | XMS_ITS | Encounter Summary ---
Author Name Unknown Organization [facility] Address [address] [place] [address] Care Team Providers Care Tractor Mechanic Apprentice Name Role Phone Elsewhere, Pcp Primary Care Provider Unavailabl e Encounter Details Date Type Department Care Team (Latest Contact Info) Description 07/01/2023 Intake [facility] Social History Tobacco Use Types Packs/Day Years [...] often do you attend chur ch or islam services? Never 04/15/2023 Do you belong to any clubs o r organizations such as hinduism groups, unions, fraternal or athletic groups, or [...] Answer Date Recorded PHQ-2 Score 6 05/17/2023 [facility] [place] [facility] - [...] place to sleep or slept in a snf (including now)? No 04/15/2023 Depression Answer Date [...] documented as of this encounter Care Teams Tractor Mechanic Apprentice Relationship Specialty Start Date End Date Elsewhere, Pcp PCP - General Internal Medicine 05/31/23 documented as of this encounter
--- OUTSIDE RECORDS SUMMARY | 2023-12-22 07:46 | XMS_ITS | Encounter Summary ---
Author Name Unknown Organization [facility] Address [address] [place] [address] Care Team Providers Care Manager Trading Name Role Phone Elsewhere, Pcp Primary Care Provider Unavailabl e Reason for Visit * Reason Onset Date Comments Pre-visit Intake 06/09/2023 Encounter Details Date Type Department Care Team (Latest Contact Info) Description 06/09/2023 8:15 AM CDT Clinical Communication Virtual Review in [place], [place] [address] [place], [place] [id number] Pre-visit Intake Social History Tobacco Use Types [...] any clubs o r organizations such as latter day groups, unions, fraternal or athletic groups, or [...] Answer Date Recorded PHQ-2 Score 6 05/17/2023 [facility] Questionnaire Answer Date [...] as of this encounter Care Teams Manager Trading Relationship Specialty Start Date End Date Elsewhere, Pcp PCP - General Internal Medicine 05/31/23 documented as of this encounter
--- OUTSIDE RECORDS SUMMARY | 2023-12-22 07:46 | XMS_ITS | Encounter Summary ---
Author Name Unknown Organization [facility] Address [address] [place] [address] Care Team Providers Care Supermarket Manager Name Role Phone Elsewhere, Pcp Primary Care Provider Unavailabl e Reason for Visit * Reason Comments Altered Mental Status Encounter Details Date Type Department Care Team (Late st Contact Info) Description 07/01/2023 4:12 PM CDT - 07/01/2023 8:24 PM CDT Emergency [facility] [address] [place] [phone] Napoleon Alvarado, P.A.-C. [address] [place] [phone] Ting Lundberg P.A.-Meagan., P.A., M.S. [address] [place] [phone] Change Mental Status (Primary Dx); Spells Neurological (HCC); Hematuria Discharge Disposition: Acute Care Hospital Social History Tobacco Use Types Packs/Day Years [...] often do you attend chur ch or mu-ism services? Never 04/15/2023 Do you belong to [...] Answer Date Recorded PHQ-2 Score 6 05/17/2023 [facility] - Occupational Stress [...] place to sleep or slept in a skilled nursing (including now)? No 04/15/2023 Depression Answer Date [...] Sign Reading Time Taken Comments Blood Pressure 160/87 07/01/2023 8:15 PM CDT Pulse 61 07/01/2023 8:15 PM CDT Temperature 35.8 ??C (96.4 ??F) 07/01/2023 4:17 PM CD T Respiratory Rate 12 07/01/2023 8:15 PM CDT Oxygen Saturation 96% 07/01/2023 8:15 PM CDT Inhaled Oxygen Concentration - - Weight 60 kg (132 lb 4.4 oz) 07/01/2023 4:31 PM CDT Height - - Body Mass Index 22.01 05/17/2023 12:51 PM CDT documented in this encounter Medications at Time [...] supplement). 0 07/30/2023 escitalopram (LEXAPRO) 5 mg tabletIndications:Demen tia In Other Diseases Classified Elsewhere, Severe, With Agitation (HCC) Take 1 tablet (5 mg total) by mouth daily. 90 tablet 3 05/26/2023 07/03/2023 mirtazapine (REMERON AMOS-TAB) 15 mg disintegrating tablet Dissolve 0.5 tablets (7.5 mg total) in the mouth at bedtime. 15 tablet 0 07/03/2023 07/30/2023 OLANZapine (ZyPREXA) 2.5 mg tablet Take 2.5 mg by mouth 2 (two) times a day. 0 07/02/2023 OLANZapine (ZyPREXA) 5 mg tablet Take 2.5 mg by mouth 2 (two) times a day. 0 08/17/2023 simvastatin (ZOCOR) 40 mg tabletIndications:Hyper lipidemia Take 1 tablet (40 mg total) by mouth at bedtime. 90 tablet 3 06/08/2023 07/02/2023 documented as of this encounter ED Notes * Ting Lundberg P.A.-C., M.S. - 07/01/2023 6:59 PM CDT SIGN OUT NOTE Sarina Klein is a 87 y.o. female signed out to me by Napoleon Alvarado PA-C at 1858 PM CDT. For a complete history and physical exam please see their note. In brief, this patient has a h/o unsteady gait, hyperlipidemia, enterocolitis (C. Diff), dementia, normal pressure hydrocephalus, TIA, depression, hypokalemia, renal cyst, and chronic hematuria (on daily Aspirin) who presented to the emergency department for intermittent, transient spells of altered mental status x 3 days. Labs were performed,including CBC, CMP, lipase, lactate, INR, UA, blood cultures. Abnormal labs revealed bicarb 20, AG 16, alk phos 117. UA shows cloudy urine, large blood, small leuk est, 100 proteins, 40 ketones, small bilirubin, 41-50 RBCs, triple phosphate crystals and bacteria present. UC is pending. The patient was given Rocephin for possible UTI as cause for AMS episodes. CXR was performed and showed an indeterminate pulmonary nodule. Follow up xray in six weeks advised. [facility] imaging is unavailable today due to program updates. Attempts were made to transfer the patient to [place], but they have no beds available. [place] is on divert, including ED to ED transfers. [place] [facility] is reviewing patient for direct admission. [place] also has beds available at time of signout and is an optionif [place] is unable to take the patient. Anticipated disposition is transfer for admission and further workup (including head CT) when bed becomes available. . ED COURSE: ED Course as of 07/01/232016 [facility] Jul 01, 2023 1858 Patient was signed out by Napoleon Alvarado PA-C. 1926 The patient was reassessed and remains comfortable. Awaiting answer from [facility] regarding transfer. Daughter asked if we could check a CK given the presence of hematuria, which she states is more prominent today than usual. Will add a CK. The patient denies any complaints at this time. [address] Ellington with [facility] and he accepted the patient in transfer. He requested a screening EKG, CK (which was already added), procalcitonin and beta hydroxybutyrate. He also requested I clarify the patient's code status and inform patient and family that final destination and plan may change pending head/neck imaging in [place]. 1954 CK is normal at 53. 1956 EKG shows normal sinus rhythm, rate 62. No ST elevation. 1957 The patient and her family were updated on results and plan. Lab is drawing additional testingnow. I informed the patient and her family that her final destination and plan may change dependingon CT results. The family is understanding of this potential. I discussed the patient's code statusand both daughters were in agreement and expressed that the patient is DNR/DNI. 2014 [facility] arrived to transport patient. Final Diagnoses: as of 07/01/232016 Change Mental Status Spells Neurological (HCC) Hematuria ASSESSMENT AND PLAN: CK was added given hematuria and this is normal. I spoke with Dr. Ellington with [facility] and he accepted the patient in transfer. He requested a screening EKG, CK (which was already added), procalcitonin and beta hydroxybutyrate. He also requested I clarify the patient's code status and inform patient and family that final destination and plan may change pending head/neck imaging in [place]. The patient and her family were updated on results and plan. Lab is drawing additional testing now. I informed the patient and her family that her final destination and plan may change depending on CT results. The family is understanding of this potential. I discussed the patient's code status and both daughters were in agreement and expressed that the patient is DNR/DNI. PROBLEMS ADDRESSED THIS VISIT: Final diagnoses: [R41.82] Change Mental Status [R56.9] Spells Neurological (HCC) [R31.9] Hematuria Ting (Lenore) Reu, PA-C Emergency Medicine Ting Lundberg P.A.-C., M.S. 07/01/23 2017 * Napoleon Alvarado P.A.-C. - 07/01/2023 5:57 PM CDT SUBJECTIVE CHIEF COMPLAINT/REASON FOR VISIT Altered Mental Status HISTORY OF PRESENT ILLNESS 87-year-old female arrives ER via EMS from home with her daughter where she resides. Patient has advanced dementia. Patient's daughter states that over the last 3 days she has had frequent episodes where she will not respond to questioning, painful stimuli, or any other stimuli. These spells seem to last for anywhere from 15-20 minutes and are followed by periods of time where she is entirely lucent and at her baseline. Daughter has not found anything that seems to elicit these symptoms. She denies history of seizure disorder. Has had previous TIAs. Patient has had recent weight loss as she has had decreased p.o. food and fluid intake. Her urine has been foul smelling. History provided by: Patient, parent and EMS personnel REVIEW OF SYSTEMS All pertinent systems reviewed and are negative except as discussed in HPI OBJECTIVE Initial Vitals Temperature 07/01/23 1617 (!) 35.8 ??C Pulse Rate 07/01/23 1625 65 Heart Rate 07/01/23 1700 (!) 58 Resp Rate 07/01/23 1625 17 Blood Pressure 07/01/23 1625 (!) 168/88 SpO2 07/01/23 1625 95 % Pain Score 07/01/23 1631 0 - No pain PHYSICAL EXAMINATION Constitutional: Nursing note and vitals reviewed. Non-toxic appearance. HENT: Head: Normocephalic and atraumatic. Nose: Nose normal. Mouth/Throat: Oropharynx is clear and moist. Mucous membranes are moist. Eyes: Pupils are equal, round, and reactive to light. Neck: Neck supple. Cardiovascular: Normal rate, regular rhythm, S1 normal, S2 normal and normal heart sounds. Pulmonary/Chest: Effort normal and breath sounds normal. No apparent respiratory distress. Abdominal: Soft. Bowel sounds are normal. There is no abdominal tenderness. Musculoskeletal: Cervical back: Neck supple. Neurological: Alert. In the ER patient has periods where she is alert and talkative followed by periods where she will not respond to questions or stimuli. During this periods of time she does not appear to be any distress. Her respiratory rate and heart rate do not change. She closes her eyes and does not respond to any questions. She maintains her muscle tone during these events. There is no airway compromise. She does not appear to be unconscious. Skin: Skin is warm. ASSESSMENT/PLAN Assessment and Plan Patient arrived to the ER via EMS with neurologic complaints. EMS staff was advised prior to patient's arrival that we are on neuro divert as our CT scan is down for maintenance. Workup in the ER does revealed mild UTI which may be contributing to patient's symptoms in the setting of advanced dementia. CT head is indicated. CT scan is down at this facility all day and we have been on neuro divert. I spoke with ER physician in [place] to see if we could obtain a CT scan and then possible admission at that facility, but they do not have med surge beds available. We do not have med surge available at this facility as well. We are unable to admit or observe the patient in this hospital. I spoke with transfer center who states that [facility] is [facility] and they have no med surgeavailable in [place] to admit the patient. [place] does have med surge beds available. We are reaching out to [facility] to see if we can do an ER to ER transfer for CT imaging and then likely direct admission. At shift change care is transitioned to oncoming provider. We are waiting acceptance for transfer.. DIFFERENTIAL DIAGNOSES Altered mental status, dementia, UTI, intracranial pathology.. I reviewed the following external records: office records, primary care records, prior outpatient labs and inpatient records. The following tests were considered but ultimately not performed: CT imaging is indicated, but our CT scanner is currently down.. Escalation of care, including admission/observation, considered: Patient meets criteria for admission as she is altered from her baseline, is symptomatic for urinary tract infection, and is unable agatha cared for at home.. My [employer] interpretation includes the following comments: No acute infiltrates. I discussed the management of the patient with: Transfer center. Napoleon Alvarado, Lily. 07/01/23 1846 * Nannette Newton R.N. - 07/01/2023 5:21 PM CDT Pt presents by ambulance with altered mental status. Pt the last 3 days has had these increased trans like episodes where she doesn't wake up to painful stimuli or even sternal rub. Daughter states the episodes can last an hour. Pt on arrival wouldn't respond but did open her eyes and yell what areyou doing during catheter placement. Pt has had some medicine changes lately with Zyprexa and Lexapro. Nannette Netwon R.N. 07/01/23 1729 documented in this encounter Plan of Treatment Not on file documented as of this encounter Procedures Procedure Name Priority Date/Time Associated Diagnosis Comments VBG WITH LACTATE, POCT, B STAT 07/01/2023 8:05 PM CDT BETA-HYDOXYBUTYRATE, POCT, B STAT 07/01/2023 8:05 PM CDT PROCALCITONIN, S STAT 07/01/2023 8:05 PM CDT ECG STAT 07/01/2023 7:55 PM CDT BACTERIA / LAURA CULTURE, BLOOD STAT 07/01/2023 4:59 PM CDT BACTERIAL CULTURE, AEROBIC + SUSC, URINE STAT 07/01/2023 4:49 PM CDT URINALYSIS WITH MICROSCOPIC STAT 07/01/2023 4:49 PM CDT BACTERIA / LAURA CULTURE, BLOOD STAT 07/01/2023 4:38 PM CDT PROTHROMBIN TIME (PT), P STAT 07/01/2023 4:37 PM CDT CBC WITH DIFFERENTIAL, B STAT 07/01/2023 4:37 PM CDT LIPASE, S/P STAT 07/01/2023 4:37 PM CDT LACTATE, B/P STAT 07/01/2023 4:37 PM CDT CREATINE KINASE (CK), S STAT 07/01/2023 4:37 PM CDT COMPREHENSIVE METABOLIC PANEL, S/P STAT 07/01/2023 4:37 PM CDT DX CHEST 1 VIEW RAD - Semiurgent (Fast; most ED patients; some inpatients) 07/01/2023 4:27 PM CDT documented in this encounter Results * (ABNORMAL) Venous Blood Gas with Lactate, POCT, B (07/01/2023 8:05 PM CDT) pH, Venous, POCT, B 7.37 7.32 - 7.43 07/01/2023 8:15 PM CDT CNFL pCO2, Venous, POCT, B 36(L) 41 - 51 mm Hg 07/01/2023 8:15 PM CDT CNFL pO2, Venous, POCT, B 48 Not applicable mm Hg 07/01/2023 8:15 PM CDT CNFL HCO3, Venous, POCT, B 21 Not applicable mmol/L 07/01/2023 8:15 PM CDT CNFL Base Excess, Venous, POCT, B -4 Not applicable mmol/L 07/01/2023 8:15 PM CDT CNFL O2 Saturation, Venous, POCT, B 83 Not applicable % 07/01/2023 8:15 PM CDT CNFL Sample Type, Blood Gas, POCT PEDRO 07/01/2023 8:15 PM CDT CNFL Lactate, POCT 1.11 0.50 - 2.20 mmol/L 07/01/2023 8:15 PM CDT CNFL Blood (Blood, Venous) 07/01/2023 8:05 PM CDT 07/01/2023 8:09 PM CDT Ting Lundberg P.A.-C., P.A., M.S. LAB POC T ORDERABLES - DEVICE Performing Organization Address [facility] Co de Phone Number [facility] [address] [place] [address], [facility] CNFL [facility] [place] [address] * Procalcitonin (07/01/2023 8:05 PM CDT) Procalcitonin, S <0.06 <=0.08 ng/mL 07/02/2023 3:14 PM CDT ECLR Blood (Blood, Venous) 07/01/2023 8:05 PM CDT 07/02/2023 3:14 PM CDT Ting Lundberg P.A.-C., P.A., M.S. LAB BLO OD ADD-ON Performing Organization Address [facility] Co de Phone Number [facility] [address] [place] [address], [facility] ECLR [facility] [place] [address] * (ABNORMAL) Beta-hydroxybutyrate, Point of Care Testing, Blood (07/01/2023 8:05 PM CDT) Beta-hydroxybut yrate, POCT, B 2.2(H) 0.0 - 0.5 mmol/L 07/01/2023 8:17 PM CDT CNFL Blood (Blood, Venous) 07/01/2023 8:05 PM CDT 07/01/2023 8:09 PM CDT Ting Lundberg P.A.-C., P.A., M.S. LAB BLO OD NON ADD-ON Performing Organization Address City/[facility] Co de Phone Number [facility] [address] [place] [phone], [facility] CNFL [facility] in [address] [address] * ECG 12 Lead (07/01/2023 7:55 PM CDT) Ventricular Rate ECG/Min 62 BPM MUSE DE Interval 150 ms MUSE QRSD Interval 72 ms MUSE QT Interval 420 ms MUSE QTC Interval 426 ms MUSE P [place] 63 degrees MUSE R [place] 13 degrees MUSE T Wave [place] 44 degrees MUSE 07/01/2023 7:55 PM CDT 07/01/2023 7:58 PM CDT Impressions MUSE - 07/01/2023 7:58 PM CDT Normal sinus rhythm Low anterior forces Nonspecific ST and T wave abnormality When compared with ECG of 13-APR-2023 16:22, No significant change was found Reviewed by Nicolás Crane III, CRAT Narrative Procedure Note Isaak Disla M.D. - 07/01/2023 IMPRESSION: Normal sinus rhythm Low anterior forces Nonspecific ST and T wave abnormality When compared with ECG of 13-APR-2023 16:22, No significant change was found Reviewed by Nicolás Crane III, CRAT Ting Lundberg P.A.-C., P.A., M.S. ECG ORD ERABLES Performing Organization Address City/[facility]/ZIP Co de Phone Number MUSE NA * Bacteria / Laura Culture, Blood #2 (07/01/2023 4:59 PM CDT) Bacteria/Aminta da Culture, Blood No growth after 5 day/s of incubation. 07/06/2023 6:02 PM CDT [facility] Blood (Blood, Peripheral Draw) 07/01/2023 4:59 PM CDT 07/01/2023 5:11 PM CDT Comment:Specimen Source Site : Blood Napoleon Alvarado P.A.-C. LAB MICROBIOLOGY - GENERAL ORDERABLES Performing Organization Address City/[facility]/ZIP Co de Phone Number [facility] [address] [place] [phone], [facility] CNFL [facility] in [address] [address] * (ABNORMAL) Bacterial Culture, Aerobic + Susceptibility, Urine (07/01/2023 4:49 PM CDT) Urine Culture AEROCOCCUS URINAE >100,000 cfu/mL (A) 07/02/2023 6:51 PM CDT ECLR Comment:If susceptibilities desired, call Microbiology Urine (Urine, Indwelling Catheter) 07/01/2023 4:49 PM CDT 07/01/2023 8:25 PM CDT Comment:Specimen Source Site : Urine Napoleon Alvarado P.A.-C. LAB MICROBIOLOGY - GENERAL ORDERABLES Performing Organization Address City/[facility] Co de Phone Number [facility] [address] [place] [address], [facility] ECLR [facility] [place] [address] * (ABNORMAL) Urinalysis with Microscopic: Urine, Midstream (07/01/2023 4:49 PM CDT) Source Urine, Urine, Midstream 07/01/2023 5:08 PM CDT CNFL Clarity Cloudy(A) Clear 07/01/2023 5:11 PM CDT CNFL Color Jo Ann 07/01/2023 5:11 PM CDT CNFL Comment: ----REFERENCE VALUE---- Colorless Yellow Jo Ann Blood Large(A) Negative 07/01/2023 5:11 PM CDT CNFL Nitrite Negative Negative 07/01/2023 5:11 PM CDT CNFL Leukocyte Esterase Small(A) Negative 07/01/2023 5:11 PM CDT CNFL Protein 100(A) mg/dL 07/01/2023 5:11 PM CDT CNFL Comment: ----REFERENCE VALUE---- Negative Trace Glucose Negative Negative mg/dL 07/01/2023 5:11 PM CDT CNFL Ketones, QI(U) 40(A) Negative mg/dL 07/01/2023 5:11 PM CDT CNFL Bilirubin Small(A) Negative 07/01/2023 5:11 PM CDT CNFL pH >=9.0(A) 5.0 - 8.0 07/01/2023 5:11 PM CDT CNFL Specific [place] 1.015 1.001 - 1.035 07/01/2023 5:11 PM CDT CNFL Urobilinogen 1.0 0.2 - 1.0 mg/dL 07/01/2023 5:11 PM CDT CNFL White Blood Cells 4-10 /hpf 07/01/2023 5:26 PM CDT CNFL Comment: ----REFERENCE VALUE---- Males: 0-3 Females: 0-10 Unknown: 0-10 Red Blood Cells 41-50(A) 0 - 2 /hpf 5:26 PM CDT CNFL Dysmorphic Red Blood Cells <=25 <=25 % 07/01/2023 5:26 PM CDT CNFL Crystals Triple Phosphate(A) None Seen /lpf 07/01/2023 5:26 PM CDT CNFL Squamous Cells Occ-3 /hpf 07/01/2023 5:26 PM CDT CNFL Bacteria Present(A) None Seen 07/01/2023 5:26 PM CDT CNFL Urine (Urine, Midstream) 07/01/2023 4:49 PM CDT 07/01/2023 5:08 PM CDT Napoleon Alvarado P.A.-C. LAB URINE ORDERA BLES [facility] [address] [place] [phone], [facility] CNFL [facility] in [address] [address] * Bacteria / Laura Culture, Blood #1 (07/01/2023 4:38 PM CDT) Bacteria/Aminta da Culture, Blood No growth after 5 day/s of incubation. 07/06/2023 5:02 PM CDT CNFL Blood (Blood, Peripheral Draw) 07/01/2023 4:38 PM CDT 07/01/2023 4:45 PM CDT Comment:Specimen Source Site : Blood Napoleon Alvarado P.A.-C. LAB MICROBIOLOGY - GENERAL ORDERABLES Performing Organization Address [facility] [place] [address], [place] [address] * CK (Creatine Kinase) (07/01/2023 4:37 PM CDT) Creatine Kinase, P 53 26 - 192 U/L 07/01/2023 7:53 PM CDT FL Blood (Blood, Venous) 07/01/2023 4:37 PM CDT 07/01/2023 7:41 PM CDT Ting Lundberg P.A.-C., P.A., M.S. LAB BLO OD ADD-ON Performing Organization Address [facility] [place] [address], [place] [address] * Prothrombin Time (PT) (07/01/2023 4:37 PM CDT) Prothrombin Time, P 11.1 9.4 - 12.5 sec 07/01/2023 4:50 PM CDT CNFL INR 1.0 0.9 - 1.1 07/01/2023 4:50 PM CDT CNFL Comment: ----ADDITIONAL INFORMATION---- Standard intensity warfarin therapeutic range: 2.0 to 3.0 ?? High intensity warfarin therapeutic range: 2.5 to 3.5 Blood (Blood, Venous) 07/01/2023 4:37 PM CDT 07/01/2023 4:40 PM CDT Napoleon Alvarado P.A.-C. LAB BLOOD ADD-ON [facility] [address] [place] [address], [address] [address] * Lactate, baseline (07/01/2023 4:37 PM CDT) Lactate, P 1.1 0.5 - 2.2 mmol/L 07/01/2023 4:57 PM CDT CNFL Blood (Blood, Venous) 07/01/2023 4:37 PM CDT 07/01/2023 4:40 PM CDT Napoleon Alvarado P.A.-C. LAB BLOOD NON AD D-ON Performing Organization Address [facility]/ZIP Co de Phone Number [facility] [address] [place] [phone], [facility] [address] [address] * Lipase (07/01/2023 4:37 PM CDT) Lipase, P 41 13 - 60 U/L 07/01/2023 5: 20 PM CDT CNFL Blood (Blood, Venous) 07/01/2023 4:37 PM CDT 07/01/2023 4:41 PM CDT Napoleon Alvarado P.A.-C. LAB BLOOD ADD-ON [facility] [address] [place] [phone], [facility] [address] [address] * (ABNORMAL) Comprehensive Metabolic Panel (07/01/2023 4:37 PM CDT) Potassium, P 4.0 3.6 - 5.2 mmol/L 07/01/2023 5:20 PM CDT CNFL Sodium, P 143 135 - 145 mmol/L 07/01/2023 5:20 PM CDT CNFL Chloride, P 107 98 - 107 mmol/L 07/01/2023 5:20 PM CDT CNFL Bicarbonate, P 20(L) 22 - 29 mmol/L 07/01/2023 5:20 PM CDT CNFL Anion Gap, P 16(H) 7 - 15 07/01/2023 5:20 PM CDT CNFL BUN (Blood Urea Nitrogen), P 32(H) 6 - 21 mg/dL 07/01/2023 5:20 PM CDT CNFL Creatinine 0.95 0.59 - 1.04 mg/dL 07/01/2023 5:20 PM CDT CNFL Estimated GFR (eGFR) 58(L) >=60 mL/min/BS A 07/01/2023 5:20 PM CDT CNFL Comment: Estimated GFR calculated using the 2020 CKD_EPI creatinine equation. Calcium, Total, P 10.0 8.8 - 10.2 mg/dL 07/01/2023 5:20 PM CDT CNFL Glucose, P 79 70 - 140 mg/dL 07/01/2023 5:20 PM CDT CNFL Protein, Total, P 7.6 6.3 - 7.9 g/dL 07/01/2023 5:20 PM CDT CNFL Albumin, P 4.0 3.5 - 5.0 g/dL 07/01/2023 5:20 PM CDT CNFL Aspartate Aminotransferase (AST), P 27 8 - 43 U/L 07/01/2023 5:20 PM CDT CNFL Alkaline Phosphatase, P 117(H) 35 - 104 U/L 07/01/2023 5:20 PM CDT CNFL Alanine Aminotransferase (ALT), P 30 7 - 45 U/L 07/01/2023 5:20 PM CDT CNFL Bilirubin, Total, P 0.5 <=1.2 mg/dL 07/01/2023 5:20 PM CDT CNFL Blood (Blood, Venous) 07/01/2023 4:37 PM CDT 07/01/2023 4:41 PM CDT Napoleon Alvarado P.A.-C. LAB BLOOD ADD-ON [facility] [address] [place] [phone], [facility] CNFL [facility] [place] [address] * CBC with Differential, Blood (07/01/2023 4:37 PM CDT) Hemoglobin 13.0 11.6 - 15.0 g/dL 07/01/2023 5:16 PM CDT CNFL Hematocrit 40.1 35.5 - 44.9 % 07/01/2023 5:16 PM CDT CNFL Erythrocytes 4.54 3.92 - 5.13 x10(12)/L 07/01/2023 5:16 PM CDT CNFL MCV 88.3 78.2 - 97.9 fL 07/01/2023 5:16 PM CDT CNFL RBC Distrib Width 13.6 12.2 - 16.1 % 07/01/2023 5:16 PM CDT CNFL Platelet Count 244 157 - 371 x10(9)/L 07/01/2023 5:16 PM CDT CNFL Leukocytes 6.9 3.4 - 9.6 x10(9)/L 07/01/2023 5:16 PM CDT CNFL Neutrophils 4.74 1.56 - 6.45 x10(9)/L 07/01/2023 5:16 PM CDT CNFL Lymphocytes 1.49 0.95 - 3.07 x10(9)/L 07/01/2023 5:16 PM CDT CNFL Monocytes 0.40 0.26 - 0.81 x10(9)/L 07/01/2023 5:16 PM CDT CNFL Eosinophils 0.27 0.03 - 0.48 x10(9)/L 07/01/2023 5:16 PM CDT CNFL Basophils <0.04 0.01 - 0.08 x10(9)/L 07/01/2023 5:16 PM CDT CNFL Blood (Blood, Venous) 07/01/2023 4:37 PM CDT 07/01/2023 4:40 PM CDT Napoleon Alvarado P.A.-C. LAB BLOOD ADD-ON [facility] [address] [place] [phone], [facility] CNFL [facility] in [address] [address] * DX Chest 1 View (07/01/2023 4:27 PM CDT) Anatomical Region Laterality Modality Chest, Thoracic RST LOS, Tho racic ARZ LOS, Thoracic FLA LOS N/A Digital Radiography 07/01/2023 4:30 PM CDT Impressions 07/01/2023 4:31 PM CDT Mild cardiac enlargement. In the lateral aspect of the left lower lung, there is 20 mm nodular opacity. This is indeterminate with main differential being pneumonia or pulmonary nodule. Suggest six-week followup chest radiographs to assure resolution. Narrative 07/01/2023 4:31 PM CDT EXAM: DX CHEST 1 VIEW Procedure Note Nomi Cobian M.D. - 07/01/2023 EXAM: DX CHEST 1 VIEW IMPRESSION: Mild cardiac enlargement. In the lateral aspect of the left lower lung,there is 20 mm nodular opacity. This is indeterminate with main differential beingpneumonia or pulmonary nodule. Suggest six-week followup chest radiographs to assure resolution. Napoleon Alvarado P.A.-C. IMG DIAGNOSTIC I MAGING PROCEDURES documented in this encounter Visit Diagnoses Diagnosis Change Mental Status- Primary Spells Neurological (HCC) Hematuria documented in this encounter Administered Medications Inactive Administered Medications - up to 3 most recent administrations Medication Order MAR Action Action Date Dose Rate Site cefTRIAXone injection 2 g (ROCEPHIN) 2 g, intravenous, Once, On Nadine 07/01/23 at 1756, For 1 dose, If needed, reconstitute vial per package insert instructions. See IVAG for administration guidelines., Drug Monitoring Program: Pharmacist to adjust medication dosing based on indication and drug clearance factors., Indications: Lower UTI, Non-Catheter Given 07/01/2023 6:13 PM CDT 2 g documented in this encounter Active and Recently Administered Medications Times are shown in CDT. Scheduled Medication Order 06/29/2023 06/30/2023 07/01/2023 cefTRIAXone injection 2 g (ROCEPHIN) (COMPLETED) 2 g, intravenous, Once, On Nadine 07/01/23 at 1756, For 1 dose, If needed, reconstitute vial per package insert instructions. See IVAG for administration guidelines., Drug Monitoring Program: Pharmacist to adjust medication dosing based on indication and drug clearance factors., Indications: Lower UTI, Non-Catheter 1812 (Given - Provid er: Nannette Newton R.N.) documented in this encounter Additional Health Concerns Assessment Noted Time PHQ-9 Depression Total Score: 17 023 12:50 PM CDT documented as of this encounter Care Teams Supermarket Manager Relationship Specialty Start Date End Date Elsewhere, Pcp PCP - General Internal Medicine 05/31/23 documented as of this encounter
--- OUTSIDE RECORDS SUMMARY | 2023-12-22 07:46 | XMS_ITS | Encounter Summary ---
Author Name Unknown Organization [facility] Address [address] [place] [address] Care Team Providers Care Screwmaker Automatic Name Role Phone Elsewhere, Pcp Primary Care Provider Unavailabl e Reason for Visit * Reason Comments Post Hospital Follow-up Patient is awake , but not responding to questions, daughter states that this morning is worse then yesterday morning and this is unusual for her. Daughter states that the unresponsive episodes have gotten better, she is still having a few. Patient was taken off of the lexapro. * Outpatient (Routine) - Closed Specialty Diagnoses / Procedures Referred By Getachew dubon Referred To Contact Re Santana M.D. [address] [place] [phone] [facility] Region Referral ID Status Reason Start Date Expiration Date Visits Re quested Visits Authorized [id number] Closed 07/03/2023 07/02/2026 1 1 Encounter Details Date Type Department Care Team (Late st Contact Info) Description 07/07/2023 10:15 AM CDT Office Visit Department of Family Medicine, [facility], in [address] [phone] Anila Clark M.D. [address] [place] [phone] Dementia In Other Diseases Classified Elsewhere, Severe, With Agitation (HCC) (Primary Dx); Malnutrition Severe Protein-Calorie (HCC); Abnormal Lung Chest Xray Discharge Disposition: [...] often do you attend chur ch or mormon services? Never 04/15/2023 Do you belong to any clubs o r organizations such as baptism groups, unions, fraternal or athletic groups, or [...] Answer Date Recorded PHQ-2 Score 6 05/17/2023 [facility] Occupational Stress Questionnaire Answer Date [...] place to sleep or slept in a intermediate (including now)? No 04/15/2023 Depression Answer Date [...] Sign Reading Time Taken Comments Blood Pressure 105/70 07/07/2023 10:09 AM CDT Pulse 89 07/07/2023 10:09 AM CDT Temperature 36.7 ??C (98.1 ??F) 07/07/2023 10:09 AM C DT Respiratory Rate 20 07/07/2023 10:09 AM CDT Oxygen Saturation 92% 07/07/2023 10:09 AM CDT Inhaled Oxygen Concentration - - Weight 55 kg (121 lb 4.1 oz) 07/07/2023 10:09 AM CDT Height - - Body Mass Index 20.2 07/02/2023 12:42 PM CDT documented in this encounter Patient Instructions * Patient Instructions* Anila Clark M.D. - 07/07/2023 10:15 AM CDT Follow-up chest xray 08/18. documented in this encounter Progress Notes * Anila Clark M.D. - 07/07/2023 10:15 AM CDT SUBJECTIVE CHIEF COMPLAINT / REASON FOR VISIT Sarina Klein is a 87 y.o. female who presents for evaluation of Post Hospital Follow-up (Patient is awake, but not responding to questions, daughter states that this morning is worse then yesterday morning and this is unusual for her. Daughter states that the unresponsive episodes have gotten better, she is still having a few. Patient was taken off of the lexapro. ). HISTORY OF PRESENT ILLNESS Things have been improving off of the Lexapro. She was previously having trancelike episodes that were lasting for greater than 1 hour per day which have been improving. She was sleepy all of the time when on the Lexapro. She has been having Sundowner's episodes. She was recommended Remeron in the hospital to help with appetite and mood. Things have been improving and in the right direction and they have not started it yet. They have been continuing the Zyprexa. Now, she is consuming Malts, protein shakes to help with caloric intake. She has not had a bowel movement since the . Her normal is one bowel movement every 3 days. They use a 1/2 capful of Miralax every other day for maintenance. She has a history of prior pneumonias remotely. They have been monitoring home oxygen readings which have been between 93-95%. She has not had a cough or fevers. Wt Readings from Last 5 Encounters: 07/07/23 55 kg 07/03/23 55.2 kg 07/01/23 60 kg 05/26/23 59 kg 05/17/23 59 kg OBJECTIVE BP 105/70 (BP Location: Left arm, Patient Position: Sitting, Cuff Size: Regular) Pulse 89 Temp 36.7 ??C (Temporal) Resp 20 Wt 55 kg SpO2 92% No BMI 20.20 kg/m?? PHYSICAL EXAM Constitutional General: She is [...] breath sounds. No wheezing, rhonchi or rales. Abdominal Tenderness: There is no abdominal tenderness. There is no guarding or rebound. Musculoskeletal Right lower leg: No edema. Left lower leg: No edema. Neurological Mental Status: She is alert and oriented to person, place, and time. Mental status is at baseline. Cranial Nerves: No cranial nerve deficit. Psychiatric Mood and Affect: Mood normal. Behavior: Behavior normal. Thought Content: Thought content normal. Judgment: Judgment normal. Results for orders placed or performed during the hospital encounter of 07/01/23 Basic Metabolic Panel Result Value Ref Range Potassium, P 3.5 (L) 3.6 - 5.2 mmol/L Sodium, P 139 135 - 145 mmol/L Chloride, P 106 98 - 107 mmol/L Bicarbonate, P 22 22 - 29 mmol/L Anion Gap, P 11 7 - 15 BUN (Blood Urea Nitrogen), P 26 (H) 6 - 21 mg/dL Creatinine 0.82 0.59 - 1.04 mg/dL Estimated GFR (eGFR) 69 >=60 mL/min/BSA Calcium, Total, P 9.2 8.8 - 10.2 mg/dL Glucose, P 143 (H) 70 - 140 mg/dL CBC with Differential, Blood Result Value Ref Range Hemoglobin 10.9 (L) 11.6 - 15.0 g/dL Hematocrit 33.4 (L) 35.5 - 44.9 % Erythrocytes 3.72 (L) 3.92 - 5.13 x10(12)/L MCV 89.8 78.2 - 97.9 fL RBC Distrib Width 13.6 12.2 - 16.1 % Platelet Count 218 157 - 371 x10(9)/L Leukocytes 5.6 3.4 - 9.6 x10(9)/L Neutrophils 3.23 1.56 - 6.45 x10(9)/L Lymphocytes 1.60 0.95 - 3.07 x10(9)/L Monocytes 0.41 0.26 - 0.81 x10(9)/L Eosinophils 0.37 0.03 - 0.48 x10(9)/L Basophils 0.03 0.01 - 0.08 x10(9)/L Beta-hydroxybutyrate, Point of Care Testing, Blood Result Value Ref Range Beta-hydroxybutyrate, POCT, B 0.1 0.0 - 0.5 mmol/L CK (Creatine Kinase) Result Value Ref Range Creatine Kinase, P 46 26 - 192 U/L Basic Metabolic Panel Result Value Ref Range Potassium, P 3.7 3.6 - 5.2 mmol/L Sodium, P 142 135 - 145 mmol/L Chloride, P 106 98 - 107 mmol/L Bicarbonate, P 25 22 - 29 mmol/L Anion Gap, P 11 7 - 15 BUN (Blood Urea Nitrogen), P 17 6 - 21 mg/dL Creatinine 0.99 0.59 - 1.04 mg/dL Estimated GFR (eGFR) 55 (L) >=60 mL/min/BSA Calcium, Total, P 9.9 8.8 - 10.2 mg/dL Glucose, P 131 70 - 140 mg/dL ASSESSMENT / PLAN 1. Dementia In Other Diseases Classified Elsewhere, Severe, With Agitation (HCC) Since she has been continuing to improve since discharge off of the Lexapro, they would like to continue with monitoring only at present but have the Remeron available to start if needed. 2. Malnutrition Severe Protein-Calorie (HCC) They have been offering calorie rich foods at home and feel that appetite has been improving. 3. Abnormal Lung Chest Xray 20mm nodular opacity in the left lower lobe noted thought consistent with pneumonia vs nodule in the hospital. Due to no cough, fevers, and history of C. Difficile infection, no antibiotics were started and 6 week follow-up xray recommended and ordered for future. I spent 36 minutes face to face and non-face to face caring for the patient today. Anila Clark MD 07/07/23 documented in this encounter Plan of Treatment Not on file documented as of this encounter Visit Diagnoses Diagnosis Dementia In Other Diseases Classified Elsewhere, Severe, With Agitation (HCC)- Primary Malnutrition Severe Protein-Calorie (HCC) Abnormal Lung Chest Xray documented in this encounter Additional Health Concerns Assessment Noted Time PHQ-9 Depression Total Score: 17 023 12:50 PM CDT documented as of this encounter Care Teams Screwmaker Automatic Relationship Specialty Start Date End Date Elsewhere, Pcp PCP - General Internal Medicine 05/31/23 documented as of this encounter
--- OUTSIDE RECORDS SUMMARY | 2023-12-22 07:47 | XMS_ITS | Encounter Summary ---
Author Name Unknown Organization [facility] Address [address] [place] [address] Care Team Providers Care Spanish Speaking Babysitter Name Role Phone Elsewhere, Pcp Primary Care Provider Unavailabl e Reason for Visit * Reason Comments Altered Mental Status Brought in by geoffrey cabrera after she fell this morning and has had slurred speech and having facial droop Encounter Details Date Type Department Care Team (Late st Contact Info) Description 04/13/2023 3:48 PM CDT - 04/13/2023 5:23 PM CDT Emergency [facility] [address] [place] [phone] Smauel Hall, PSilverA.-C., P.A. [address] [place] [phone] Cystitis Acute (Primary Dx) Discharge Disposition: Home or Self Care Social History Tobacco Use Types Packs/Day Years Used Date Smoking Tobacco: Former Cigarettes Q uit: 1979 Smokeless Tobacco: Never Nutrition Answer Date Recorded Nutrition: EVOO Fat Source Unknown 02/18 Nutrition: Servings of Fruits/Vegetables per Day Not on file 02/18/2022 Dental Answer Date Recorded Dental: Regular Dentist Unknown 02/19/20 Sex and Gender Information Value Date Recorded Sex Assigned at Female 04/15/2023 7:57 AM CDT Gender Identity Female 04/15/2023 7:57 AM CDT Sexual Orientation Straight 04/15/2023 7: 57 AM CDT documented as of this encounter Last Filed Vital Signs Vital Sign Reading Time Taken Comments Blood Pressure 166/83 04/13/2023 5:00 PM CDT Pulse 67 04/13/2023 5:00 PM CDT Temperature 37 ??C (98.6 ??F) 04/13/2023 4:08 PM CDT Respiratory Rate 14 04/13/2023 5:00 PM CDT Oxygen Saturation 95% 04/13/2023 5:00 PM CDT Inhaled Oxygen Concentration - - Weight 59 kg (130 lb 1.1 oz) 04/13/2023 3:52 PM CDT Height - - Body Mass Index 21.64 03/09/2022 2:15 PM CDT documented in this encounter Discharge Instructions * Discharge Instructions* Samuel Hall P.A.-C., P.A. - 04/13/2023 5:13 PM CDT Use the antibiotics as prescribed. Protect against falls. Come back if she worsens. Schedule an appointment in clinic. * Attachments The following attachments cannot be sent through Care Everywhere. * Urinary Tract Infection Adult (Djiboutian) documented in this encounter Medications at Time [...] mouth daily as needed (dietary supplement). 0 cefdinir (OMNICEF) 300 mg capsule Take 1 capsule (300 mg total) by mouth every 12 (twelve) hours for 5 days. 10 capsule 0 04/13/2023 04/18/2023 cholecalciferol (VITAMIN D3) 50 mcg (2,000 Unit) capsule Take 2,000 Units by mouth daily as needed (dietary supplement). 0 07/30/2023 donepeziL (ARICEPT) 5 mg tablet Take 1 tablet (5 mg total) by mouth every morning. 90 tablet 3 03/30/2022 04/21/2023 MELATONIN-THEANINE ORAL Melatonin Plus L-Theanine 10-5.5 mg. One tab at bedtime. 0 06/09/2023 QUEtiapine (SEROquel) 25 mg tablet Take 12.5 mg by mouth 2 (two) times a day. 0 01/01/2022 04/21/2023 documented as of this encounter ED Notes * Radha Mensah R.N. - 04/13/2023 5:23 PM CDT Patient arrived via daughter in private car. Daughter requesting help to get patient out of car as she has dementia and refusing to get out. Staff attempting along with family to encourage patient tocome inside for evaluation but patient refusing to get out of car and angry that she was here. Patient in no obvious distress. After 20 minutes patient did agree to come inside to be evaluated. Once in ED patient calm and compliant with plan of care. Radha Mensah R.N. 04/13/23 1730 * Samuel Hall P.A.-C., P.A. - 04/13/2023 3:56 PM CDT SUBJECTIVE CHIEF COMPLAINT/REASON FOR VISIT Altered Mental Status (Brought in by daughters after she fell this morning and has had slurred speech and having facial droop) HISTORY OF PRESENT ILLNESS Sarina Klein is an 87-year-old female that presents with confusion. Her daughters state that she has had some signs of stroke recently. 3 days ago she had some facial droop. They also noticed some arm weakness. The symptoms have been waxing and waning. Currently she does not have any symptoms. Shewas evaluated at an outside emergency department after a possible fall a few days ago. She has beeneating and drinking appropriately. She does have a history of dementia. 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 HENT: Negative for congestion, drooling, rhinorrhea, sore throat and trouble swallowing. Respiratory: Negative for cough, shortness of breath and wheezing. Cardiovascular: Negative for chest pain, palpitations and leg swelling. Gastrointestinal: Negative for abdominal pain, diarrhea and vomiting. Genitourinary: Negative for decreased urine volume. Musculoskeletal: Negative for back pain and neck pain. Skin: Negative for color change, pallor and rash. Neurological: Positive for facial asymmetry, speech difficulty and weakness. Negative for seizures,syncope and light-headedness. Psychiatric/Behavioral: Positive for confusion. OBJECTIVE Initial Vitals Temperature 04/13/23 1608 37 ??C Pulse Rate 04/13/23 1545 94 Heart Rate 04/13/23 1545 94 Resp Rate 04/13/23 1545 18 Blood Pressure 04/13/23 1545 (!) 153/106 SpO2 04/13/23 1545 95 % Pain Score 04/13/23 1554 0 - No pain PHYSICAL EXAMINATION Constitutional: Nursing note and vitals reviewed. She appears not listless and not lethargic. She is active and cooperative. She does not appear ill. No distress. HENT: Head: Normocephalic and atraumatic. Mouth/Throat: Mucous membranes are dry. Eyes: Conjunctivae, EOM and lids are normal. Pupils are equal, round, and reactive to light. Periorbital area normal appearing. Neck: Phonation normal. Cardiovascular: Normal rate, regular rhythm and normal pulses. Pulmonary/Chest: Effort normal and breath sounds normal. No tachypnea. No respiratory distress. Musculoskeletal: Cervical back: No pain with movement, spinous process tenderness or muscular tenderness. Neurological: Alert. She has normal sensation, normal strength and cranial nerves II through XII intact. She is disoriented. GCS eye subscore is 4. GCS verbal subscore is 4. GCS motor subscore is 6. Normal speech. Speech is not aphasic or slurred.Has unimpaired finger to nose. Skin: Skin is warm, dry and normal color. No rash noted. Psychiatric: Speech pattern is normal. Her mood appears anxious. Relaxed.She exhibits abnormal recent memory and abnormal remote memory. ASSESSMENT/PLAN Assessment and Plan Sarina Klein he is an 87-year-old female who presents with possible stroke. Her family states thatshe has had some stroke-like symptoms in the past 2 or 3 days including slurred speech, facial droop and arm weakness. Her symptoms are fairly intermittent and they are concerned about a possible TIA. They deny any recent injuries or falls. She is not been ill recently. She has been able to eat and drink without difficulty. She is not had any medication changes recently. On my initial exam she isalert and confused expected with her dementia. She is reluctant to follow directions but was eventually convinced and has since been cooperative. Initially she was a bit hypertensive but otherwise vital signs are normal. She does not have any obvious physical exam findings of a CVA. She does not appear to be septic or profoundly dehydrated. Blood labs were fairly normal. Urinalysis showed some evidence of a bladder infection. Head CT did not show any acute abnormalities. EKG was fairly normal. Overall she appears well and I have some suspicion for a bladder infection. She may have had a TIA but no signs of obvious stroke. We will start her on cefdinir and a urine culture was ordered. We didtalk about signs of a stroke that would warrant coming back to the emergency department. They will follow-up in clinic soon.. DIFFERENTIAL DIAGNOSES CVA, TIA, urinary tract infection, sepsis, dehydration, pneumonia, encephalitis, subdural hematoma,other intracranial hemorrhage, meningitis. PROBLEMS ADDRESSED THIS VISIT Confusion. I reviewed the following external records: office records. ED Course as of 04/13/23 1713 Tue April 13, 2023 1622 ECG 12 Lead Rafael - NSR with no ST segment or T wave changes. Normal QTC. 1629 CT Head without IV Contrast No acute intracranial hemorrhage or extra-axial fluid collection. No mass effect, midline shift, or herniation. There is severe parenchymal volume loss with ex vacuo dilation of the ventricles. Underlying normal pressure hydrocephalus cannot be excluded. Severe hippocampal volume loss. Confluent hypodensity in the supratentorial white matter is nonspecific, however likely sequelae of chronic small vessel ischemia. Intracranial atherosclerosis. Note CT evidence of an acute territorial infarction. MRI has greater sensitivity for acute ischemia. There is no suspicious calvarial abnormality. The visualized paranasal sinuses are essentially clear. Clear mastoid air cells. Visualized orbits are unremarkable. Degenerative changes in the temporomandibular joints. IMPRESSION: 1. No acute intracranial hemorrhage. No definite acute transcortical infarction. MRI has greater sensitivity for detection of acute ischemia. 1646 Urinalysis with Microscopic: Urine, Midstream(!): Source Urine, Urine, Midstream Clarity Cloudy(!) Color, U Yellow Blood Trace(!) Nitrite, U Negative Leukocyte Esterase Trace(!) Protein Urine Random Trace Glucose Negative Ketones, QL(U) Trace(!) Bilirubin Negative pH 5.5 Specific Sullivan 1.025 Urobilinogen 0.2 White Blood Cells 21-30(!) Red Blood Cells 3-10(!) Dysmorphic Red Blood Cells <=25 Squamous Cells Occ-3 Bacteria Present(!) Possible UTI 1651 Comprehensive Metabolic Panel(!): Potassium, P 3.2(!) Sodium, P 140 Chloride, P 105 Bicarbonate, P 22 Anion Gap, P 13 BUN (Blood Urea Nitrogen), P 18 Creatinine 0.82 Estimated GFR (eGFR) 69 Calcium, Total, P 9.5 Glucose, P 103 Protein, Total, P 7.4 Albumin, P 4.3 Aspartate Aminotransferase (AST), P 31 Alkaline Phosphatase, P 104 Alanine Aminotransferase (ALT), P 23 Bilirubin, Total, P 0.5 1651 CRP (C-Reactive Protein)(!): C-Reactive Protein (CRP), P 6.5(!) 1705 CBC with Differential, Blood: Hemoglobin 12.2 Hematocrit 37.1 Erythrocytes 4.24 MCV 87.5 RBC Distrib Width 14.3 Platelet Count 264 White Blood Cell Count 7.3 Neutrophils 5.64 Lymphocytes 1.12 Monocytes 0.48 Eosinophils 0.08 Basophils <0.04 Final Diagnoses: as of 04/13/23 1713 Cystitis Acute The following tests were considered but ultimately not performed: Chest abdomen and pelvis CT was consider for possible trauma but her family is fairly certain that she has not had any recent falls and she is not complaining of any thorax pain.. Escalation of care, including admission/observation, considered: None. My ECG interpretation is documented in ED Course. Samuel Hall P.A.-C., P.A. 04/13/23 171 documented in this encounter Miscellaneous Notes * Result Encounter Note - Sagrario Gold R.N. - 04/15/2023 10:58 AM CDT Urine C&S came back growing mixed microbiota. On 04/13, patient was diagnosed with a UTI and prescribed Cefdinir. I reviewed result with Samuel Hall PA-C who recommended the patient d/c the antibiotic at this time. I contacted the patient's daughter (LILLIAM on file), Renata, to discuss results and recommendations to d/c the cefdinir at this time. She verbalized understanding and was agreeable with this plan. She denied any further questions or concerns t this time. Sagrario Gold R.N. 04/15/23 1058 documented in this encounter Plan of Treatment Not on file documented as of this encounter Procedures Procedure Name Priority Date/Time Associated Diagnosis Comments CBC WITH DIFFERENTIAL, B STAT 04/13/2023 4:28 PM CDT C-REACTIVE PROTEIN (CRP), S/P STAT 04/13/2023 4:28 PM CDT COMPREHENSIVE METABOLIC PANEL, S/P STAT 04/13/2023 4:28 PM CDT BACTERIAL CULTURE, AEROBIC + SUSC, URINE STAT 04/13/2023 4:23 PM CDT URINALYSIS WITH MICROSCOPIC STAT 04/13/2023 4:23 PM CDT ECG STAT 04/13/2023 4:[address] HEAD WITHOUT IV CONTRAST RAD - Semiurgent (Fast; most ED patients; some inpatients) 04/13/2023 4:11 PM CDT documented in this encounter Results * (ABNORMAL) CRP (C-Reactive Protein) (04/13/2023 4:28 PM CDT) C-Reactive Protein (CRP), P 6.5(H) <5.0 mg/L 04/13/2023 4:50 PM CDT CNFL Blood (Blood, Venous) 04/13/2023 4:28 PM CDT 04/13/2023 4:30 PM CDT Samuel Hall P.A.-C., P.A. LAB BLOOD ADD-ON [facility] [address] [place] [id number], [facility] CNFL [facility] [place] [address] * (ABNORMAL) Comprehensive Metabolic Panel (04/13/2023 4:28 PM CDT) Pathologist [facility] Potassium, P 3.2(L) 3.6 - 5.2 mmol/L 04/13/2023 4:50 PM CDT CNFL Sodium, P 140 135 - 145 mmol/L 04/13/2023 4:50 PM CDT CNFL Chloride, P 105 98 - 107 mmol/L 04/13/2023 4:50 PM CDT CNFL Bicarbonate, P 22 22 - 29 mmol/L 04/13/2023 4:50 PM CDT CNFL Anion Gap, P 13 7 - 15 04/13/2023 4:50 PM CDT CNFL BUN (Blood Urea Nitrogen), P 18 6 - 21 mg/dL 04/13/2023 4:50 PM CDT CNFL Creatinine 0.82 0.59 - 1.04 mg/dL 04/13/2023 4:50 PM CDT CNFL Estimated GFR (eGFR) 69 >=60 mL/min/BS A 04/13/2023 4:50 PM CDT CNFL Comment: Estimated GFR calculated using the 2020 CKD_EPI creatinine equation. Calcium, Total, P 9.5 8.8 - 10.2 mg/dL 04/13/2023 4:50 PM CDT CNFL Glucose, P 103 70 - 140 mg/dL 04/13/2023 4:50 PM CDT CNFL Protein, Total, P 7.4 6.3 - 7.9 g/dL 04/13/2023 4:50 PM CDT CNFL Albumin, P 4.3 3.5 - 5.0 g/dL 04/13/2023 4:50 PM CDT CNFL Aspartate Aminotransferase (AST), P 31 8 - 43 U/L 04/13/2023 4:50 PM CDT CNFL Alkaline Phosphatase, P 104 35 - 104 U/L 04/13/2023 4:50 PM CDT CNFL Alanine Aminotransferase (ALT), P 23 7 - 45 U/L 04/13/2023 4:50 PM CDT CNFL Bilirubin, Total, P 0.5 <=1.2 mg/dL 04/13/2023 4:50 PM CDT CNFL Blood (Blood, Venous) 04/13/2023 4:28 PM CDT 04/13/2023 4:30 PM CDT Samuel Hall P.A.-C., P.A. LAB BLOOD ADD-ON Performing Organization Address City/State/[facility] Co de Phone Number [facility] [address] [place] [address], [facility] CNFL [facility] [place] [address] * CBC with Differential, Blood (04/13/2023 4:28 PM CDT) Hemoglobin 12.2 11.6 - 15.0 g/dL 04/13/2023 5:02 PM CDT CNFL Hematocrit 37.1 35.5 - 44.9 % 04/13/2023 5:02 PM CDT CNFL Erythrocytes 4.24 3.92 - 5.13 x10(12)/L 04/13/2023 5:02 PM CDT CNFL MCV 87.5 78.2 - 97.9 fL 04/13/2023 5:02 PM CDT CNFL RBC Distrib Width 14.3 12.2 - 16.1 % 04/13/2023 5:02 PM CDT CNFL Platelet Count 264 157 - 371 x10(9)/L 04/13/2023 5:02 PM CDT CNFL Leukocytes 7.3 3.4 - 9.6 x10(9)/L 04/13/2023 5:02 PM CDT CNFL Neutrophils 5.64 1.56 - 6.45 x10(9)/L 04/13/2023 5:02 PM CDT CNFL Lymphocytes 1.12 0.95 - 3.07 x10(9)/L 04/13/2023 5:02 PM CDT CNFL Monocytes 0.48 0.26 - 0.81 x10(9)/L 04/13/2023 5:02 PM CDT CNFL Eosinophils 0.08 0.03 - 0.48 x10(9)/L 04/13/2023 5:02 PM CDT CNFL Basophils <0.04 0.01 - 0.08 x10(9)/L 04/13/2023 5:02 PM CDT CNFL Blood (Blood, Venous) 04/13/2023 4:28 PM CDT 04/13/2023 4:30 PM CDT Samuel Hall P.A.-C., P.A. LAB BLOOD ADD-ON [facility] [address] [place] [id number], [facility] in [address] [address] * (ABNORMAL) Bacterial Culture, Aerobic + Susc, Urine (04/13/2023 4:23 PM CDT) Urine Culture Mixed microbiota (A) 04/15/2023 9:32 AM CDT ECLR Urine (Urine, Midstream) 04/13/2023 4:23 PM CDT 04/13/2023 9:16 PM CDT Comment:Specimen Source Site : Urine Samuel Hall P.A.-C., P.A. LAB MICROB IOLOGY - GENERAL ORDERABLES [facility] [address] [place] [id number] ECLR [facility] [place] [address] [place] [address] * (ABNORMAL) Urinalysis with Microscopic: Urine, Midstream (04/13/2023 4:23 PM CDT) Source Urine, Urine, Midstream 04/13/2023 4:26 PM CDT CNFL Clarity Cloudy(A) Clear 04/13/2023 4:30 PM CDT CNFL Color Yellow 04/13/2023 4:30 PM CDT CNFL Comment: ----REFERENCE VALUE---- Colorless Yellow Jo [place] Blood Trace(A) Negative 04/13/2023 4:30 PM CDT CNFL Nitrite Negative Negative 04/13/2023 4:30 PM CDT CNFL Leukocyte Esterase Trace(A) Negative 04/13/2023 4:30 PM CDT CNFL Protein Trace mg/dL 04/13/2023 4:30 PM CDT CNFL Comment: ----REFERENCE VALUE---- Negative Trace Glucose Negative Negative mg/dL 04/13/2023 4:30 PM CDT CNFL Ketones, QI(U) Trace(A) Negative mg/dL 04/13/2023 4:30 PM CDT CNFL Bilirubin Negative Negative 04/13/2023 4:30 PM CDT CNFL pH 5.5 5.0 - 8.0 04/13/2023 4:30 PM CDT CNFL Specific Sullivan 1.025 1.001 - 1.035 04/13/2023 4:30 PM CDT CNFL Urobilinogen 0.2 0.2 - 1.0 mg/dL 04/13/2023 4:30 PM CDT CNFL White Blood Cells 21-30(A) /hpf 04/13/2023 4:44 PM CDT CNFL Comment: ----REFERENCE VALUE---- Males: 0-3 Females: 0-10 Unknown: 0-10 Red Blood Cells 3-10(A) 0 - 2 /hpf 4:44 PM CDT CNFL Dysmorphic Red Blood Cells <=25 <=25 % 04/13/2023 4:44 PM CDT CNFL Squamous Cells Occ-3 /hpf 04/13/2023 4:44 PM CDT CNFL Bacteria Present(A) None Seen 04/13/2023 4:44 PM CDT CNFL Urine (Urine, Midstream) 04/13/2023 4:23 PM CDT 04/13/2023 4:26 PM CDT Samuel Hall P.A.-C., P.A. LAB URINE ORDERABLES Performing Organization Address [facility] de Phone Number [facility] [address] [place] [id number], [facility] CNFL [facility] in [address] [address] * ECG 12 Lead (04/13/2023 4:22 PM CDT) Ventricular Rate ECG/Min [address] Interval 142 ms MUSE QRSD Interval 76 ms MUSE QT Interval 428 ms MUSE QTC Interval 452 ms MUSE P Carriere 28 degrees MUSE R Carriere -28 degrees MUSE T Wave Carriere 9 degrees MUSE 04/13/2023 4:22 PM CDT 04/13/2023 4:53 PM CDT Impressions MUSE - 04/13/2023 4:53 PM CDT Poor data quality Normal sinus rhythm Low anterior forces Nonspecific ST and T wave abnormality When compared with ECG of 09-MAR-2022 15:15, Loss of anterior forces Reviewed by Nicolás Crane III, CRAT Narrative Procedure Note Sissy Schreiber M.D., Ph.D. - 04/13/2023 IMPRESSION: Poor data quality Normal sinus rhythm Low anterior forces Nonspecific ST and T wave abnormality When compared with ECG of 09-MAR-2022 15:15, Loss of anterior forces Reviewed by Nicolás Crane III, CRAT Samuel Hall P.A.-C., P.A. ECG ORDERA BLES Performing Organization Address [facility] Co de Phone Number MUSE NA * CT Head without IV Contrast (04/13/2023 4:11 PM CDT) Anatomical Region Laterality Modality Head, Neuroradiology RST LOS , Neuroradiology ARZ LOS, Neuroradiology FLA LOS N/A Computed Tomography 04/13/2023 4:13 PM CDT Impressions 04/13/2023 4:22 PM CDT 1. No acute intracranial hemorrhage. No definite acute transcortical infarction. MRI has greater sensitivity for detection of acute ischemia. Narrative 04/13/2023 4:22 PM CDT EXAM: CT HEAD WITHOUT IV CONTRAST COMPARISON: None FINDINGS: No acute intracranial hemorrhage or extra-axial fluid collection. No mass effect, midline shift, or herniation. There is severe parenchymal volume loss with ex vacuo dilation of the ventricles. Underlying normal pressure hydrocephalus cannot be excluded. Severe hippocampal volume loss. Confluent hypodensity in the supratentorial white matter is nonspecific, however likely sequelae of chronic small vessel ischemia. Intracranial atherosclerosis. Note CT evidence of an acute territorial infarction. MRI has greater sensitivity for acute ischemia. There is no suspicious calvarial abnormality. The visualized paranasal sinuses are essentially clear. Clear mastoid air cells. Visualized orbits are unremarkable. Degenerative changes in the temporomandibular joints. Procedure Note Florian Moe M.D. - 04/13/2023 EXAM: CT HEAD WITHOUT IV CONTRAST COMPARISON: None FINDINGS: No acute intracranial hemorrhage or extra-axial fluid collection. No masseffect, midline shift, or herniation. There is severe parenchymal volume loss with ex vacuo dilationof the ventricles. Underlying normal pressure hydrocephalus cannot be excluded. Severehippocampal volume loss. Confluent hypodensity in the supratentorial white matter is nonspecific,however likely sequelae of chronic small vessel ischemia. Intracranial atherosclerosis. Note CT evidence of an acute territorial infarction. MRI has greatersensitivity for acute ischemia. There is no suspicious calvarial abnormality. The visualized paranasalsinuses are essentially clear. Clear mastoid air cells. Visualized orbits are unremarkable.Degenerative changes in the temporomandibular joints. IMPRESSION: 1. No acute intracranial hemorrhage. No definite acute transcorticalinfarction. MRI has greater sensitivity for detection of acute ischemia. Samuel Hall P.A.-C., P.A. IMG CT PRO CEDURES documented in this encounter Visit Diagnoses Diagnosis Cystitis Acute- Primary documented in this encounter Care Teams Spanish Speaking Babysitter Relationship Specialty Start Date End Date Elsewhere, Pcp PCP - General Internal Medicine 02/18/22 05/30/23 documented as of this encounter
--- OUTSIDE RECORDS SUMMARY | 2023-12-22 07:47 | XMS_ITS | Encounter Summary ---
Author Name Unknown Organization [facility] Address [address] [place] [address] Care Team Providers Care Reservations Specialist Name Role Phone Elsewhere, Pcp Primary Care Provider Unavailabl e Reason for Visit * Reason Comments Med Refill Encounter Details Date Type Department Care Team (Late st Contact Info) Description 04/21/2023 Refill Department of Neurology in [place], [place] [address] [phone] Tee Upton M.D. [address] [phone] Med Refill Social History Tobacco Use Types Packs/Day Years Used Date Smoking Tobacco: Former Cigarettes Q uit: 1979 Smokeless Tobacco: Never Humiliation, Afraid, Rape, and Kick questionnair e [...] often do you attend chur ch or quaker services? Never 04/15/2023 Do you belong to any clubs o r organizations such as roman catholic groups, unions, fraternal or athletic groups, or [...] Answer Date Recorded PHQ-2 Score 6 05/17/2023 [facility]ational [facility] Questionnaire Answer [...] place to sleep or slept in a [facility] (including now)? No 04/15/2023 Depression Answer Date [...] Diagnoses Not on filedocumented in this encounter Care Teams Reservations Specialist Relationship Specialty Start Date End Date Elsewhere, Pcp PCP - General Internal Medicine 02/18/22 05/30/23 documented as of this encounter
--- OUTSIDE RECORDS SUMMARY | 2023-12-22 07:47 | XMS_ITS | Encounter Summary ---
Author Name Unknown Organization [facility] Address [address] [place] [address] Care Team Providers Care Curtain Stretcher Name Role Phone Elsewhere, Pcp Primary Care Provider Unavailabl e Reason for Referral * Behavioral Health (Routine) - Closed Specialty Diagnoses / Procedures Referred By Getachew dubon Referred To Contact Psychiatry / Psychiatry and Psychology Diagnoses Alzheimer's Disease (HCC) Mood Disorder (HCC) Temper Control Difficulty (HCC) Tee Upton M.D. [address] [address] [facility] Referral ID Status Reason Start Date Expiration Date V isits Requested Visits Authorized [id number] Closed Specialty Services Required 05/05/2023 05/04/2024 1 1 Reason for Visit * Outpatient (Routine) - Closed Specialty Diagnoses / Procedures Referred By Getachew dubon Referred To Contact Neurology Tee Upton M.D. [address] [address] [facility] Referral ID Status Reason Start Date Expiration Date Visits Re quested Visits Authorized [id number] Closed 04/21/2023 04/20/2026 1 1 Encounter Details Date Type Department Care Team (Late st Contact Info) Description 05/05/2023 1:00 PM CDT Telemedicine Department of Neurology in [place], [place] [address] [place] [address] Tee Upton M.D. [address] [place] [address] Alzheimer's Disease (HCC) (Primary Dx); Mood Disorder (HCC); Temper Control Difficulty (HCC) Social History Tobacco Use Types Packs/Day [...] any clubs o r organizations such as advent groups, unions, fraternal or athletic groups, or [...] and heating? Not hard at all 04/15/2023 [facility] - Occupational Stress Questionnaire Answer Date [...] place to sleep or slept in a senior living (including now)? No 04/15/2023 Nutrition Answer Date Recorded Nutrition: EVOO Fat [...] as of this encounter Progress Notes * Tee Upton M.D. - 05/05/2023 1:00 PM CDT SUBJECTIVE CHIEF COMPLAINT / REASON FOR VISIT Sarina Klein is a 87 y.o. female who presents for follow-up regarding dementia Consult conducted via real-time audio/video technology by Tee Upton M.D. in [facility] to the patient in Patient's Home HISTORY OF PRESENT ILLNESS Ms. 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 This is a video visit largely with her daughter who is her primary caregiver as well as several other of her children. Since our last visit, she did try Depakote for 2-3 days to see if this would help with any difficulties with behavioral dyscontrol, although it actually seemed to make them worse. As such, that medication was discontinued. On clarification today, it sounds as though her olanzapine dosing is actually much more reasonable for someone her age and dosed at 5 mg twice a day which her daughter at times cuts in half to actually take 2-1/2 three times a day, although that has now essentially made its way down to 2.5 mg twicea day around noon and bedtime. Unfortunately, after the noon dose, she sleeps much of the afternoon, and they are worried about sedation in that regard. 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 They had some questions regarding potential hospice care which I thought that she would not necessarily qualify for given her medical condition. Additionally, they were wondering about meeting with Psychiatry which I certainly think is reasonable. [facility] them with scheduling an appointment quicker than usual. We reviewed her CT PET scan which does show hypo metabolism in the bilateral parietal lobes worse on the left with also some frontal lobe involvement suggestive of an Alzheimer's pattern of dementia. REVIEW OF SYSTEMS REVIEW OF SYSTEMS OBJECTIVE PHYSICAL EXAM General: Only spoke with daughter as primary caregiver today and did not speak with Ms. Klein For details of the neurologic examination, please see the neurologic examination form. ASSESSMENT / PLAN #1 Alzheimer's Disease (HCC) #2 Mood Disorder (HCC) #3 behavioral dyscontrol I discussed my thoughts with Mrs. Klein's daughter and her other children. Overall, I suspect that she could have had perhaps a paradoxical reaction to Depakote; and so I do not think we need to revisit that; and she can discontinue that medication indefinitely. The olanzapine dosing at 2.5 mg twice a day seems much more reasonable for someone Mrs. Klein's age. They can certainly continue that oreven try holding her midday dose if they are concerned about oversedation; however, I did discuss that if she is sleeping, obviously during this time she cannot become agitated; and so this may be somewhat of a balancing act between the side effects of the medication and keeping her behaviors under control. Her daughter voiced that if she were to skip the noon dose, she may have difficulty getting the bedtime dose in, which could certainly be possible. I think referral to Psychiatry is certainly reasonable. Fortunately, they happen to know a member of the Psychiatry Department, Dr. Thomas, who lives near them in [place]; and so they may be ableto assist in an earlier appointment than typical to be available. I would not make any additional medication adjustments at this time. Given the PET scan results, I discussed that a shunt would not likely lead to significant benefit overall and would still be a significant risk. Additionally, we discussed that medications such as mannitol are not used in the management of normal pressure hydrocephalus given the safety risks associated with them. Questions were answered to the best of my ability. I encouraged her to reach out to our office withother questions or concerns. Otherwise, we plan to see them back in the fall. Total time 20 minutes. documented in this encounter Plan of Treatment Scheduled Referrals Name Type Priority Associated Diagnoses Order Schedule Psychiatry and Psychology - General consult (clinic) Outpatient Referral Routine Alzheimer's Disease (HCC) Mood Disorder (HCC) Temper Control Difficulty (HCC) Expected: 05/05/2023 (Approximate), Expires: 08/05/2024 documented as of this encounter Visit Diagnoses Diagnosis Alzheimer's Disease (HCC)- Primary Mood Disorder (HCC) Temper Control Difficulty (HCC) documented in this encounter Care Teams Curtain Stretcher Relationship Specialty Start Date End Date Elsewhere, Pcp PCP - General Internal Medicine 02/18/22 05/30/23 documented as of this encounter
--- OUTSIDE RECORDS SUMMARY | 2023-12-22 07:47 | XMS_ITS | Encounter Summary ---
Author Name Unknown Organization [facility] Address [address] [place] [address] Care Team Providers Care Software Design Engineer Name Role Phone Elsewhere, Pcp Primary Care Provider Unavailabl e Reason for Referral * Outpatient (Routine) - Authorized Specialty Diagnoses / Procedures Referred By Getachew dubon Referred To Contact Diagnoses Unspecified Dementia Unspecified Severity Without Behavioral Disturbance Psychotic disturbance Mood Disturbance And Anxiety (HCC) Procedures PET CT Brain Metabolic Evaluation Tee Upton M.D. [address] [address] [facility] Referral ID Status Reason Start Date Expiration Date V isits Requested Visits Authorized [id number] Authorized 04/21/2023 04/20/2024 6 6 Reason for Visit * Outpatient (Routine) - Authorized Specialty Diagnoses / Procedures Referred By Getachew dubon Referred To Contact Diagnoses Unspecified Dementia Unspecified Severity Without Behavioral Disturbance Psychotic disturbance Mood Disturbance And Anxiety (HCC) Procedures PET CT Brain Metabolic Evaluation Tee Upton M.D. [address] [address] [facility] Referral ID Status Reason Start Date Expiration Date V isits Requested Visits Authorized [id number] Authorized 04/21/2023 04/20/2024 6 6 Encounter Details Date Type Department Care Team (Latest Contact Info) Description 04/28/2023 12:36 PM CDT - 04/28/2023 11:59 PM CDT Hospital Encounter Department of Radiology, [facility], in [place], [place] [address] [place] [address] Tee Upton M.D. [address] [place] [phone] Unspecified Dementia Unspecified Severity Without Behavioral Disturbance Psychotic disturbance Mood Disturbance And Anxiety (HCC) Discharge Disposition: Home or Self Care [...] often do you attend chur ch or anglican services? Never 04/15/2023 Do you belong to any clubs o r organizations such as gnosticist groups, unions, fraternal or athletic groups, or [...] and heating? Not hard at all 04/15/2023 [facility] - Occupational [...] place to sleep or slept in a jail (including now)? No 04/15/2023 Nutrition Answer Date [...] mouth daily as needed (dietary supplement). 0 cholecalciferol (VITAMIN D3) 50 mcg (2,000 Unit) capsule Take 2,000 Units by mouth daily as needed (dietary supplement). 0 07/30/2023 divalproex (DEPAKOTE ER) 500 mg 24 hr tablet Take 1 tablet (500 mg total) by mouth daily. 30 tablet 5 04/21/2023 05/05/2023 MELATONIN-THEANINE ORAL Melatonin Plus L-Theanine 10-5.5 mg. One tab at bedtime. 0 06/09/2023 OLANZapine (ZyPREXA) 10 mg tablet Take 2.5 mg by mouth 3 (three) times a day. 0 05/14/2023 documented as of this encounter Plan of Treatment Not on file documented as of this encounter Procedures Procedure Name Priority Date/Time Associated Diagnosis Comments PET CT BRAIN METABOLIC EVALUATION RAD - Routine (most inpatients and all outpatients) 04/28/2023 2:39 PM CDT Unspecified Dementia Unspecified Severity Without Behavioral Disturbance Psychotic disturbance Mood Disturbance And Anxiety (HCC) documented in this encounter Results * PET CT Brain Metabolic Evaluation (04/28/2023 2:39 PM CDT) Anatomical Region Laterality Modality Brain, Nuclear Medicine PET RST LOS, PET ARZ LOS, Nuclear Medicine PET FLA LOS, Nuclear Medicine N/A Positron Emission Tomography (PET), Positron Emission Tomography (PET) 04/29/2023 8:21 AM CDT Impressions 04/29/2023 8:27 AM CDT Pattern of cortical hypometabolism which could be seen in the setting of a clinical diagnosis of Alzheimer's disease. Narrative 04/29/2023 8:27 AM CDT EXAM: ??PET CT BRAIN METABOLIC EVALUATION Serum glucose at time of F-18 FDG injection was 105 mg/dL. RADIOPHARMACEUTICAL/MEDS: Route: intravenous fludeoxyglucose F 18 injection JAIL (FDG F-18),12.57 millicurie TECHNIQUE: F-18 FDG PET/CT scan was performed of the brain with low dose, non-contrast, free-breathing CT images for attenuation correction and anatomic localization (AC/AL), with imaging beginning at approximately 30 minutes after radiotracer injection. Cortex ID performed. COMPARISON: ??No prior PET brain. INDICATION: ??AD versus FTD versus NPH FINDINGS: ??Cortical hypometabolism involving the left greater than right frontal lobe, as well as the parietal lobes. Sensorimotor cortex and primary visual cortex is spared. Mild hypometabolism in the posterior cingulate gyrus. Cortex ID in this region is unreliable due to enlarged ventricles. No unexpected CT findings. Procedure Note Jhonatan Gunter M.D. - 04/29/2023 EXAM: PET CT BRAIN METABOLIC EVALUATION Serum glucose at time of F-18 FDG injection was 105 mg/dL. RADIOPHARMACEUTICAL/MEDS: Route: intravenous fludeoxyglucose F 18 injection JAIL (FDG F-18),12.57 millicurie TECHNIQUE: F-18 FDG PET/CT scan was performed of the brain with low dose,non-contrast, free-breathing CT images for attenuation correction and anatomiclocalization (AC/AL), with imaging beginning at approximately 30 minutes after radiotracer injection. CortexID performed. COMPARISON: No prior PET brain. INDICATION: AD versus FTD versus NPH FINDINGS: Cortical hypometabolism involving the left greater than rightfrontal lobe, as well as the parietal lobes. Sensorimotor cortex and primary visual cortex isspared. Mild hypometabolism in the posterior cingulate gyrus. Cortex ID in this region is unreliable dueto enlarged ventricles. No unexpected CT findings. IMPRESSION: Pattern of cortical hypometabolism which could be seen in the setting of aclinical diagnosis of Alzheimer's disease. Tee PANDYA NM PROCEDURES documented in this encounter Visit Diagnoses Diagnosis Unspecified Dementia Unspecified Severity Without Behavioral Disturbance Psychotic disturbance Mood Disturbance And Anxiety (HCC) documented in this encounter Administered Medications Inactive Administered Medications - up to 3 most recent administrations Medication Order MAR Action Action Date Dose Rate Site fludeoxyglucose F 18 injection JAIL (FDG F-18) 4.5-16.5 millicurie, intravenous, Once, On Wed04/28/23 at 1415, For 1 dose, Imaging Protocol Orders Given 04/28/2023 1:50 PM CDT 12.57 millicuries Right Antecubital documented in this encounter Care Teams Software Design Engineer Relationship Specialty Start Date End Date Elsewhere, Pcp PCP - General Internal Medicine 02/18/22 05/30/23 documented as of this encounter
--- OUTSIDE RECORDS SUMMARY | 2023-12-22 07:47 | XMS_ITS | Clinical Summary ---
Author Name Unknown Organization [facility] Address [address] [place] [address] Care Team Providers Care Street Department Dispatcher Name Role Phone No/Unknown, Pcp Primary Care Provider Unavailabl e Social History Tobacco Use Types Packs/Day Years Used Date Smoking Tobacco: Never Assessed Sex and Gender Information Value Date Recorded Sex Assigned at Not on file Gender Identity Not on file Sexual Orientation Not on file Plan of Treatment Health Maintenance Due Date Last Done Comments YEARLY PHYSICAL ADULT 18+ 1953 DEXA SCREENING 2000 TETANUS/DIPHTHERIA 2000 PNEUMOCOCCAL (65y+) (2 - PCV) 08/31/2012 08/31/2011, 05/13/2010 ZOSTER (SHINGLES) (2 of 3) 07/08/2014 05/13/2014 DIABETIC SCREENING 05/21/2018 05/21/2015 INFLUENZA (#1) 2023 09/01/2022 COVID-19 Vaccine ( season) 2023 09/19/2021, 01/31/2021, 01/03/[address] Dispatcher Relationship Specialty Start Date End Date No/Unknown, Pcp Please call [place] [address] PCP - General 05/17/12
--- OUTSIDE RECORDS SUMMARY | 2023-12-22 07:47 | XMS_ITS | Encounter Summary ---
Author Name Unknown Organization [facility] Address [address] [place] [address] Care Team Providers Care Toucher Up Name Role Phone Elsewhere, Pcp Primary Care Provider Unavailabl e Encounter Details Date Type Department Care Team (Late st Contact Info) Description 05/05/2023 Clinical Communication Department of Neurology in [place], [place] [address] [place] [address] Tee Upton M.D. [address] [phone] Social History Tobacco Use Types Packs/Day Years [...] often do you attend chur ch or lutheran services? Never 04/15/2023 Do you belong to any clubs o r organizations such as confucianist groups, unions, fraternal or athletic groups, or [...] and heating? Not hard at all 04/15/2023 [facility] Occupat ional Health - Occupational Stress [...] place to sleep or slept in a longterm (including now)? No 04/15/2023 Nutrition Answer Date [...] on filedocumented in this encounter Care Teams Toucher Up Relationship Specialty Start Date End Date Elsewhere, Pcp PCP - General Internal Medicine 02/18/22 05/30/23 documented as of this encounter
--- OUTSIDE RECORDS SUMMARY | 2023-12-22 07:47 | XMS_ITS | Encounter Summary ---
Author Name Unknown Organization [facility] Address [address] [place] [address] Care Team Providers Care Concrete Polisher Name Role Phone Elsewhere, Pcp Primary Care Provider Unavailabl e Reason for Visit * Reason Onset Date Comments Pre-visit Intake 05/14/2023 Encounter Details Date Type Department Care Team (Latest Contact Info) Description 05/14/2023 10:30 AM CDT Clinical Communication Virtual Review in [place], [place] [address] [place] [address] Pre-visit Intake Social History Tobacco Use Types [...] often do you attend chur ch or taoist services? Never 04/15/2023 Do you belong to any clubs o r organizations such as caodaism groups, unions, fraternal or athletic groups, or [...] and heating? Not hard at all 04/15/2023 [facility] - Occupational Stress Questionnaire Answer Date [...] in a [facility] (including now)? No 04/15/2023 Nutrition Answer Date [...] on filedocumented in this encounter Care Teams Concrete Polisher Relationship Specialty Start Date End Date Elsewhere, Pcp PCP - General Internal Medicine 02/18/22 05/30/23 documented as of this encounter
--- OUTSIDE RECORDS SUMMARY | 2023-12-22 07:47 | XMS_ITS | Encounter Summary ---
Author Name Unknown Organization [facility] Address [address] [place] [address] Care Team Providers Care Damper Worker Name Role Phone Elsewhere, Pcp Primary Care Provider Unavailabl e Reason for Referral * Outpatient (Routine) - Closed Specialty Diagnoses / Procedures Referred By Getachew dubon Referred To Contact Neurology Tee Upton M.D. [address], [place] [address] [facility] Referral ID Status Reason Start Date Expiration Date Visits Re quested Visits Authorized [id number] Closed 04/21/2023 04/20/2026 1 1 * Outpatient (Routine) - Authorized Specialty Diagnoses / Procedures Referred By Getachew dubon Referred To Contact Diagnoses Unspecified Dementia Unspecified Severity Without Behavioral Disturbance Psychotic disturbance Mood Disturbance And Anxiety (HCC) Procedures PET CT Brain Metabolic Evaluation Tee Upton M.D. [address], [place] [address] [facility] Referral ID Status Reason Start Date Expiration Date V isits Requested Visits Authorized [id number] Authorized 04/21/2023 04/20/2024 6 6 Reason for Visit * Reason Comments Dementia * Appointment Request (Routine) - Closed Specialty Diagnoses / Procedures Referred By Getachew dubon Referred To Contact Neurology Referral ID Status Reason Start Date Expiration Date Visits Re quested Visits Authorized [id number] Closed 04/13/2023 04/12/2024 1 1 Encounter Details Date Type Department Care Team (Late st Contact Info) Description 04/21/2023 3:15 PM CDT Office Visit Department of Neurology in [place], [place] [address] [place] [address] Tee Upton M.D. [address] [place] [address] Monitoring For Therapeutic Drug Therapy (Primary Dx); Dementia In Other Diseases Classified Elsewhere, Severe, With Agitation (HCC); Alzheimer's Disease (HCC); Unspecified Dementia Unspecified Severity Without Behavioral Disturbance Psychotic disturbance Mood Disturbance And Anxiety (HCC); Hydrocephalus Normal Pressure (HCC); Transient Ischemic Attack Social History Tobacco Use Types Packs/Day Years Used Date Smoking Tobacco: Former Cigarettes Q uit: 1979 Smokeless Tobacco: Never Tobacco Cessation:Counseling Given: Not Answered Humiliation, Afraid, Rape, and Kick questionnair e [...] any clubs o r organizations such as jainism groups, unions, fraternal or athletic groups, or [...] and heating? Not hard at all 04/15/2023 [facility] - Occupational Stress [...] in a [facility] (including now)? No 04/15/2023 Nutrition Answer Date [...] Sign Reading Time Taken Comments Blood Pressure 132/64 04/21/2023 2:45 PM CDT Pulse 80 04/21/2023 2:45 PM CDT Temperature - - Respiratory Rate - - Oxygen Saturation - - Inhaled Oxygen Concentration - - Weight 59 kg (130 lb 1.1 oz) 04/21/2023 2:45 PM CDT Height - - Body Mass Index 21.64 03/09/2022 2:15 PM CDT documented in this encounter Progress Notes * Tee Upton M.D. - 04/21/2023 3:15 PM CDT SUBJECTIVE CHIEF COMPLAINT / REASON FOR VISIT Sarina Klein is a 87 y.o. female who presents for evaluation of Dementia. HISTORY OF PRESENT ILLNESS Ms. Klein is a 87-year-old female with a history of dementia who returns in follow-up in that regard. Please recall she was previously seen by Dr. Sanchez in [place] in February of 2022 and previously in 2015. She was actually diagnosed with dementia in 2016 and was recommended tried donepezil at that time. Unfortunately that medication was not tolerated. She became more irritable and aggressive in September of 2021 when Seroquel was used to help with some of those symptoms. This has continued and attimes will fluctuate with dramatic worsening most recently in September of 2022 when they were down in [place] when she became significantly combative towards her daughter. She was not taking her medications around that time as she had refused to do so. She was apparently hospitalized at the [facility] where a ???psych eval was performed and she was given the diagnosis of schizophrenia. She was initiated on Zyprexa 10 mg 3 times a day along with Namenda. The Namenda was discontinued three or four weeks ago with another combative episode. Per report of her daughter, she actually does quite well with the olanzapine in terms of not being overly combative when she takes the medication. Unfortunately at times she will refuse to do so in which case she can be more combative on those days. Her daughter is attempting to keep her in her home as long as possible. Unfortunately on April 12, she had a brief episode of facial droop and left arm weakness that then resolved. She was not taking aspirin at the time. She refused to seek medical attention at the time and her other daughter who was not available today was unable to get her to go to the emergency room. She was subsequently taken the following day. Head CT was performed that evaluation did not revealany evidence of an acute infarct although there was fairly marked atrophy along with enlargement ofthe lateral and 3rd ventricles which was highly suggestive of normal pressure hydrocephalus to my eye. There is also a relatively tight and or preserved cortex in the cerebral convexity against suggestive of NPH. REVIEW OF SYSTEMS REVIEW OF SYSTEMS OBJECTIVE PHYSICAL EXAM General: Female in her 80s, alert, attentive, no acute distress Vitals: BP 132/64, HR 80 Neuro: She is alert and interactive. She is antigravity strength all extremities but there is bradykinesia with mild rigidity of the left upper extremity with cogwheeling component. When attempting to stand she moves quite slowly and takes several short shuffled steps before sitting back down. For details of the neurologic examination, please see the neurologic examination form. 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 Klein and her daughter. I discussed with them her imaging findings in detail, and that the imaging of her brain certainly seems consistent with normal pressure hydrocephalus. Unfortunately, they have really not had another image of her brain previously. I discussedwith them as opposed to ordering an MRI (given our discussion below regarding a potential recent TIA), I think a CT-PET scan of the brain may be more useful in their current state. There is somewhat at a crossroads in terms of the overall goals of care, and a CT-PET scan may help definitively answer whether or not her symptoms are primarily related to an underlying neurodegenerative process such a s dementia or normal pressure hydrocephalus. In theory, both issues could also be occurring simultaneously. I discussed that given her significant difficulties with cognitive impairment and behavioral dyscontrol, at this point her CT-PET scan would be anticipated to be significantly abnormal, as opposed to subtle findings. As such, I discussed with them obtaining a PET scan to try to shed more light on this area. They were in agreement with that. She is on a fairly robust dose of Zyprexa, and this is certainly causing some medication-induced parkinsonism. Even with this dose, she does remain combative at times. We did discuss perhaps a low dose of Depakote as a mood stabilizer to see if that would have any additional benefit. This also may have the added effect of slightly reducing her Zyprexa dosing, given some of the adduction of hepatic enzymes that occurs with Depakote. She has a recent CBC and LFTs which were normal and would be a reliable baseline. Discussed repeating those labs in 6 weeks. They are in agreement with a trial of that medication. I sent a prescription for Depakote 500 mg extended-release tablet to their pharmacy. I encouraged them to monitor for any ill effects, and certainly they could discontinue the medication if there were any. #3 Suspect TIA on 04/12/2023 Her event with unilateral facial droop and mild weakness that resolved quickly was suspicious for aTIA. She was not taking a baby aspirin at the time and I think she could return to doing so in thatsetting. They are not particularly interested in further workup for TIA at this time but she does have vascular risk factors including hypercholesterolemia and intracranial atherosclerosis on her head CT which would certainly make her susceptible to TIA/stroke. Aspirin 81 mg at least provide some protection in this regard with minimal risk. Total time 57 minutes documented in this encounter Plan of Treatment Scheduled Referrals Name Type Priority Associated Diagnoses Orde r Schedule Neurology office visit (clinic) Outpatient Referral Routine Expected: 04/21/2023 (Approximate), Expires: 07/22/2024 documented as of this encounter Results * PET CT Brain [...] documented in this encounter Visit Diagnoses Diagnosis Monitoring For Therapeutic Drug Therapy- Primary Dementia In Other Diseases Classified Elsewhere, Severe, With Agitation (HCC) Alzheimer's Disease (HCC) Unspecified Dementia Unspecified Severity Without Behavioral Disturbance Psychotic disturbance Mood Disturbance And Anxiety (HCC) Hydrocephalus Normal Pressure (HCC) Transient Ischemic Attack Unspecified Dementia Unspecified Severity Without Behavioral Disturbance Psychotic disturbance Mood Disturbance And Anxiety (HCC) documented in this encounter Care Teams Damper Worker Relationship Specialty Start Date End Date Elsewhere, Pcp PCP - General Internal Medicine 02/18/22 05/30/23 documented as of this encounter
== END 2023-07-01 15:21 | disposition home or self-care (01) ==
LOC: AMB 12-22 07:28
PROVIDERS: PCP Internal Medicine; Visit Provider Family Medicine
DX: R41.82 Altered mental status, unspecified (principal)
CPT/HCPCS: A0425; A0427